=== PATIENT | male | born 1965 | race Caucasian/White ===

== ENCOUNTER 2020-04-23 11:59 | Inpatient (IN) | payer MEDICAID, SELFPAY ==
--- NOTE | 2020-04-23 12:07 | XR_ITS ---
EXAMINATION: XR CHEST CLINICAL INFORMATION: Chest pain COMPARISON: None TECHNIQUE: Frontal view of the chest was obtained. FINDINGS: No significant abnormality is noted involving the heart, lungs, mediastinum, bony thorax or soft tissues. XR/XR chest 1V IMPRESSION: Unremarkable examination.
--- NOTE | 2020-04-23 12:07 | ECG_ITS ---
Test Reason : SYNCOPE Blood Pressure : / mmHG Vent. Rate : 094 BPM Atrial Rate : 094 BPM P-R Int : 140 ms QRS Dur : 078 ms QT Int : 378 ms P-R-T Axes : 080 066 042 degrees QTc Int : 472 ms Normal sinus rhythm Right atrial enlargement Borderline ECG No previous ECGs available Referred By: Lyndsey Gauthier Electronically Signed By:DREW PEREZ MD
[2020-04-23] MEDS: 0.9 % Sodium Chloride 1,000 ML 999 ML IVCONT ×2 (12:15→14:24)
--- NOTE | 2020-04-23 12:16 | ED.NAVMDI ---
HPI - Nausea/Vomiting/Diarrhea General Chief complaint: Nausea/Vomiting/Diarrhea Stated complaint: hyperglycemia/syncope Time Seen by Provider: 04/23/20 12:47 Source: patient and EMS Mode of arrival: EMS Limitations: no limitations History of Present Illness HPI Narrative: 54 y/o male with history of insulin dependent diabetes, ETOH abuse and crack cocaine use who is presenting to the ER from home via EMS with nausea and vomiting for the last 3 days. He is a very poor historian. He reports some generalized body aches, abdominal soreness and chest pains when the throws up. He denies exposure to COVID-19. He had a syncopal event with EMS and his glucose was found to be ~550. He reports not taking his insulin for the last 3 days due to vomiting. Last ETOH was 1 week ago, denies drinking daily. Last crack cocaine use was 5 days ago. He lives with his mother who is not ill. MD elicited complaint: nausea and vomiting Pertinent past history: alcohol abuse Onset (ago): day(s) (3) Description of vomiting: food contents and coffee grounds Associated nausea: Yes Associated abdominal pain: Yes Location of pain: diffuse Pain consistency: intermittent Severity: mild Quality: cramping and aching Exacerbating factors: eating Relieving factors: vomiting Context: alcohol abuse Associated symptoms: chest pain, loss of appetite, malaise, nausea/vomiting, shortness of breath, syncope, weakness and decreased urine output Treatment prior to arrival: other (IV Zofran with EMS) Related Data Allergies Allergy/AdvReac Type Severity Reaction Status Date / Time Unable to Assess Allergy Verified 04/23/20 12:07 Review of Systems Review of Systems: Constitutional: No Fever, No Chills ENT/Mouth: No sore throat, No Rhinorrhea, No Swallowing Difficulty Eyes: No Eye Pain, No Swelling, No Redness Cardiovascular: + Chest Pain, + SOB, No Orthopnea, No Edema Respiratory: No Cough, No Sputum, No Wheezing, No dyspnea Gastrointestinal: + Nausea, + Vomiting, No Diarrhea, + abdominal Pain, No Hematochezia, No Melena Genitourinary: No Dysuria, No Urinary Frequency, No Hematuria Musculoskeletal: No joint pain, + Myalgias Skin: No Skin Lesions, No rash Neuro: + Weakness, No Numbness, No Dizziness, + Headache Psych: No Anxiety/Panic, No Depression Heme/Lymph: No Bruising, No Lymphadenopathy Endocrine: No Polyuria, No Polydipsia Gastrointestinal: Gastrointestinal: Reports nausea PMFSH Past Medical History Attestation statement: The following information was validated with the patient. Medical History (Updated 04/23/20 @ 14:28 by FABIANO Barroso) Diabetes Social History Social History Smoking Status: Never smoker Substance Use Type: Crack/Cocaine Advance Directives: No Advance Directives Information Provided: Yes Physical Exam Vital Signs: Vital Signs: Last Vital Signs Temp 98.3 F 04/23/20 14:00 Pulse 87 04/23/20 14:00 Resp 20 04/23/20 14:00 BP 138/82 04/23/20 14:00 Pulse Ox 98 04/23/20 14:00 Body Mass Index 23.6 Appearance: Lethargic but arouses to voice. Oriented X3. No acute distress. Eyes: Pupils equal, round and reactive to light. ENT: Pharynx normal. Neck: Normal inspection. Neck supple. CVS: Normal heart rate and rhythm. Pulses normal. Anterior chest wall tenderness Respiratory: No respiratory distress. Breath sounds normal. Abdomen: Soft with mild tenderness througout. +BS x4 Skin: Skin warm and dry. Normal skin color. Normal skin turgor. No rashes. Extremities: No lower extremity edema. Neuro: Oriented X 3. Generalized, symmetrical weakness. Non-focal Course Course Course Narrative: 54 y/o male with hx DM on insulin, drug/ETOH abuse presenting with N/V x3 days, not taking his insulin. Concern for DKA - labs, IVF, resp viral panel ordered. POC 530 here. Reevaluation(s) Reevaluation #1: Labs showing significant anion gap of 41 with bicarb 14 as well as lactic acid 4.0 and TISH with BUN/Cr 39/2.50. Unknown baseline renal function. Anion gap multofactorial. Acetone is moderate which is consistent with DKA - IV insulin push and infusion ordered. VBG still pending, inital speicmen was sent on ice so needed to be repeated. Lactic acid elevation is NOT due to sepsis. Lab called with critical result of troponin being too high to read - told that the specimen was going to be diluted and rerun. Heparin and ASA ordered for presumed NSTEMI based on labs initial calling. Troponin resulted 30 minutes later with result <100. Lab then called back and said troponin read is actually <3.5. Repeat EKG is unremarkable. Patient reporting mild chest discomfort, occurring only when he vomits. He continues to report nausea. STAT repeat troponin sent and lab asked to re-run the sample that is there. Heparin held for now. D/W Dr. Zuniga. Reevaluation #2: Repeat troponin <3.5. Heparin cancelled. Case d/w Dr. Lord who will admit to ICU for management of DKA. MDM - Nausea/Vomiting/Diarrhea Medical Records Attestation: I reviewed the patient's medical records. Lab Data Attestation: I reviewed the patient's lab results. Result diagrams: 04/23/20 12:31 04/23/20 12:32 Labs: Lab Results 04/23/20 04/23/20 04/23/20 Range/Units 12:10 12:31 12:31 WBC 9.0 (4.8-10.8) X10*3/uL RBC 5.35 (4.60-5.80) X10*6/uL Hgb 16.1 (14.0-18.0) g/dl Hct 47.9 (42-52) % MCV 89.5 (80-98) fL MCH 30.1 (27.0-33.0) pg MCHC 33.6 (31.0-36.0) g/dl RDW 12.4 (11.0-16.0) % Plt Count 232 (160-400) X10*3/uL MPV 11.1 (9.4-12.4) fL Immature Gran % (Auto) 0.4 (0.0-0.4) % Neut % (Auto) 85.2 H (45-73) % Lymph % (Auto) 12.2 L (20-40) % [place] % (Auto) 2.1 (2-11) % Eos % (Auto) 0.0 (0-4) % Baso % (Auto) 0.1 (0-2) % Lymph # (Auto) 1.1 L (1.2-4.9) X10*3/uL [place] # (Auto) 0.2 (0.1-1.2) X10*3/uL Eos # (Auto) 0.0 (0.0-0.4) X10*3/uL Baso # (Auto) 0.0 (0.0-0.2) X10*3/uL Abs Immat Gran (auto) 0.04 H (0.00-0.03) X10*3/uL Absolute Neuts (auto) 7.7 (2.0-8.3) X10*3/uL Absolute Nucleated RBC 0.000 (0.0-0.012) X10*3/uL Nucleated RBC % (auto) 0.0 (0.0-0.2) /100WBC Hold Blue Top VBG pH (7.32-7.43) VBG pCO2 mmHg VBG pO2 mmHg VBG HCO3 mmol/L VBG O2 Saturation % VBG Base Excess mmol/L Sodium (135-145) mmol/L Potassium (3.3-5.1) mmol/l Chloride (96-108) mmol/L Carbon Dioxide (22-29) mmol/L Anion Gap (12-20) BUN (9-16) mg/dL Creatinine (0.5-1.4) mg/dL Estim Creat Clear Calc Estimated GFR POC Glucose 520 H* (60-115) mg/dL Random Glucose (60-115) mg/dL Lactic Acid 4.0 H* (0.5-2.0) mmol/L Calcium (8.4-10.2) mg/dL Magnesium (1.6-2.6) mg/dL Total Bilirubin (0.0-1.0) mg/dL Direct Bilirubin (0.0-0.5) mg/dL AST (5-37) U/L ALT (0-40) U/L Alkaline Phosphatase (39-117) U/L Troponin I High Sens (<3.5-35.0) ng/L Total Protein (6.5-8.0) g/dL Albumin (3.5-5.0) g/dL Lipase (8-78) U/L Acetone, Qual (Negative) Coronavirus (PCR) (Negative) Influenza Type A (PCR) (Negative) Influenza Type B (PCR) (Negative) RSV RNA Qual (PCR) (Negative) 04/23/20 04/23/20 04/23/20 Range/Units 12:31 12:32 12:32 WBC (4.8-10.8) X10*3/uL RBC (4.60-5.80) X10*6/uL Hgb (14.0-18.0) g/dl Hct (42-52) % MCV (80-98) fL MCH (27.0-33.0) pg MCHC (31.0-36.0) g/dl RDW (11.0-16.0) % Plt Count (160-400) X10*3/uL MPV (9.4-12.4) fL Immature Gran % (Auto) (0.0-0.4) % Neut % (Auto) (45-73) % Lymph % (Auto) (20-40) % [place] % (Auto) (2-11) % Eos % (Auto) (0-4) % Baso % (Auto) (0-2) % Lymph # (Auto) (1.2-4.9) X10*3/uL [place] # (Auto) (0.1-1.2) X10*3/uL Eos # (Auto) (0.0-0.4) X10*3/uL Baso # (Auto) (0.0-0.2) X10*3/uL Abs Immat Gran (auto) (0.00-0.03) X10*3/uL Absolute Neuts (auto) (2.0-8.3) X10*3/uL Absolute Nucleated RBC (0.0-0.012) X10*3/uL Nucleated RBC % (auto) (0.0-0.2) /100WBC Hold Blue Top SEE NOTE VBG pH (7.32-7.43) VBG pCO2 mmHg VBG pO2 mmHg VBG HCO3 mmol/L VBG O2 Saturation % VBG Base Excess mmol/L Sodium 138 (135-145) mmol/L Potassium 5.1 (3.3-5.1) mmol/l Chloride 88 L (96-108) mmol/L Carbon Dioxide 14 L (22-29) mmol/L Anion Gap 41 H (12-20) BUN 39 H (9-16) mg/dL Creatinine 2.50 H (0.5-1.4) mg/dL Estim Creat Clear Calc 33.7 Estimated GFR 27 POC Glucose (60-115) mg/dL Random Glucose 586 H* (60-115) mg/dL Lactic Acid (0.5-2.0) mmol/L Calcium 9.0 (8.4-10.2) mg/dL Magnesium 2.4 (1.6-2.6) mg/dL Total Bilirubin 0.2 (0.0-1.0) mg/dL Direct Bilirubin 0.2 (0.0-0.5) mg/dL AST 18 (5-37) U/L ALT 18 (0-40) U/L Alkaline Phosphatase 81 (39-117) U/L Troponin I High Sens < 3.5 (<3.5-35.0) ng/L Total Protein 7.7 (6.5-8.0) g/dL Albumin 4.4 (3.5-5.0) g/dL Lipase 13 (8-78) U/L Acetone, Qual Moderate H (Negative) Coronavirus (PCR) (Negative) Influenza Type A (PCR) (Negative) Influenza Type B (PCR) (Negative) RSV RNA Qual (PCR) (Negative) 04/23/20 04/23/20 Range/Units 12:45 14:01 WBC (4.8-10.8) X10*3/uL RBC (4.60-5.80) X10*6/uL Hgb (14.0-18.0) g/dl Hct (42-52) % MCV (80-98) fL MCH (27.0-33.0) pg MCHC (31.0-36.0) g/dl RDW (11.0-16.0) % Plt Count (160-400) X10*3/uL MPV (9.4-12.4) fL Immature Gran % (Auto) (0.0-0.4) % Neut % (Auto) (45-73) % Lymph % (Auto) (20-40) % [place] % (Auto) (2-11) % Eos % (Auto) (0-4) % Baso % (Auto) (0-2) % Lymph # (Auto) (1.2-4.9) X10*3/uL [place] # (Auto) (0.1-1.2) X10*3/uL Eos # (Auto) (0.0-0.4) X10*3/uL Baso # (Auto) (0.0-0.2) X10*3/uL Abs Immat Gran (auto) (0.00-0.03) X10*3/uL Absolute Neuts (auto) (2.0-8.3) X10*3/uL Absolute Nucleated RBC (0.0-0.012) X10*3/uL Nucleated RBC % (auto) (0.0-0.2) /100WBC Hold Blue Top VBG pH 7.13 L* (7.32-7.43) VBG pCO2 35 mmHg VBG pO2 72 mmHg VBG HCO3 12 mmol/L VBG O2 Saturation 85.0 % VBG Base Excess -15.7 mmol/L Sodium (135-145) mmol/L Potassium (3.3-5.1) mmol/l Chloride (96-108) mmol/L Carbon Dioxide (22-29) mmol/L Anion Gap (12-20) BUN (9-16) mg/dL Creatinine (0.5-1.4) mg/dL Estim Creat Clear Calc Estimated GFR POC Glucose (60-115) mg/dL Random Glucose (60-115) mg/dL Lactic Acid (0.5-2.0) mmol/L Calcium (8.4-10.2) mg/dL Magnesium (1.6-2.6) mg/dL Total Bilirubin (0.0-1.0) mg/dL Direct Bilirubin (0.0-0.5) mg/dL AST (5-37) U/L ALT (0-40) U/L Alkaline Phosphatase (39-117) U/L Troponin I High Sens (<3.5-35.0) ng/L Total Protein (6.5-8.0) g/dL Albumin (3.5-5.0) g/dL Lipase (8-78) U/L Acetone, Qual (Negative) Coronavirus (PCR) POSITIVE A (Negative) Influenza Type A (PCR) NEGATIVE (Negative) Influenza Type B (PCR) NEGATIVE (Negative) RSV RNA Qual (PCR) NEGATIVE (Negative) ECG Data Attestation: I personally reviewed and interpreted this ECG as follows: ECG interpretation date: 04/23/20 ECG interpretation time: 12:20 Interpretation: 1st EKG @ 12:11pm: normal sinus rhythm, HR 94 bpm, normal [place] interval, normal QTc, no ischemic changes, no ST elevations 2nd EKG @ 1:31pm: normal sinus rhythm, HR 92 bpm, normal [place] interval, normal QTc, no ischemic changes Critical Care Time Critical Care Time Critical Care Time: Yes Total Critical Care Time: 55 Attestation: I attest to critical care time spent with this patient, reviewing his labs and records, frequent bedside reassessments and management of his life-threatening disease of DKA. Discharge Plan Discharge Clinical Impression: TISH (acute kidney injury), COVID-19 DKA (diabetic ketoacidoses) Qualifiers: Diabetes mellitus type: type 2 Diabetes mellitus complication detail: without coma Qualified Code(s): E11.10 - Type 2 diabetes mellitus with ketoacidosis without coma Patient Disposition: Admitted As Inpatient
[2020-04-23 12:18] LABS: Glucose, Whole Blood 520 mg/dL (60-115)
[2020-04-23 12:31] VITALS: BP 114/82; BP 154/102; PULSE 92; RESP 18; TEMP 36.8; O2SAT 97; BMI 23.6
[2020-04-23 12:41] LABS: MANUAL DIFF FLAG NO
[2020-04-23 12:42] LABS: Basophils Percent Auto 0.1 % (0-2); Hematocrit 47.9 % (42-52); Hemoglobin 16.1 g/dl (14.0-18.0); Imm Gran Abs Auto 0.04 X10*3/uL (0.00-0.03); Imm Gran Pct Auto 0.4 % (0.0-0.4); Lymphocytes Absolute Auto 1.1 X10*3/uL (1.2-4.9); Lymphocytes Percent Auto 12.2 % (20-40); Mean Corpuscular HGB Conc 33.6 g/dl (31.0-36.0); Mean Corpuscular Hemoglobin 30.1 pg (27.0-33.0); Mean Corpuscular Volume 89.5 fL (80-98); Mean Platelet Volume 11.1 fL (9.4-12.4); Monocytes Absolute Auto 0.2 X10*3/uL (0.1-1.2); Monocytes Percent Auto 2.1 % (2-11); Neutrophils Absolute Auto 7.7 X10*3/uL (2.0-8.3); Neutrophils Percent Auto 85.2 % (45-73); Platelet Count 232 X10*3/uL (160-400); Red Blood Count 5.35 X10*6/uL (4.60-5.80); Red Cell Distribution Width 12.4 % (11.0-16.0)
[2020-04-23 13:14] LABS: Alanine Aminotransferase 18 U/L (0-40); Albumin Level 4.4 g/dL (3.5-5.0); Alkaline Phosphatase 81 U/L (39-117); Anion Gap 41 (12-20); Aspartate Amino Transferase 18 U/L (5-37); Bilirubin Direct 0.2 mg/dL (0.0-0.5); Bilirubin Total 0.2 mg/dL (0.0-1.0); Blood Urea Nitrogen 39 mg/dL (9-16); Carbon Dioxide 14 mmol/L (22-29); Chloride 88 mmol/L (96-108); Creatinine Clr Calc Pharmacy 33.7; Estimated Glomerular Filt Rate 27; Glucose Random 586 mg/dL (60-115); Lipase 13 U/L (8-78); Magnesium 2.4 mg/dL (1.6-2.6); Potassium 5.1 mmol/l (3.3-5.1); Sodium 138 mmol/L (135-145); Total Protein 7.7 g/dL (6.5-8.0)
[2020-04-23 13:24] LABS: Acetone, serum QL Moderate (Negative)
--- NOTE | 2020-04-23 13:27 | ECG_ITS ---
Test Reason : ELEVATED TROP Blood Pressure : / mmHG Vent. Rate : 092 BPM Atrial Rate : 092 BPM P-R Int : 138 ms QRS Dur : 080 ms QT Int : 382 ms P-R-T Axes : 078 062 051 degrees QTc Int : 472 ms Normal sinus rhythm Normal ECG When compared with ECG of 23-APR-2020 12:11, No significant change was found Referred By: Lyndsey Gauthier Electronically Signed By:DREW PEREZ MD
[2020-04-23 13:37] LABS: Troponin-I High Sensitivity < 3.5 ng/L (<3.5-35.0)
--- NOTE | 2020-04-23 13:39 | PC.NURSE ---
pt aware of need for heparin and iv insulin, transfer to [facility]. Zuniga is ok with stated weight for drips. patient reports feeling nauseated and dry heaving,.
[2020-04-23] MEDS: Insulin Regular, Human 100 UNIT/ML 3 ML VIAL IVPUSH (13:47)
[2020-04-23 13:48] LABS: Influenza A PCR NEGATIVE (Negative); Influenza B PCR NEGATIVE (Negative); Resp Syncy Virus RNA Qual PCR NEGATIVE (Negative)
[2020-04-23] MEDS: ondansetron HCL 4 MG/2 ML VIAL IVPUSH (13:49)
[2020-04-23 13:58] LABS: SARS COV2 PCR INHOUSE POSITIVE (Negative)
[2020-04-23 14:00] VITALS: BP 138/82; PULSE 87; RESP 20; TEMP 36.8; O2SAT 98
[2020-04-23 14:15] LABS: PCO2 VBG 35 mmHg; PO2 VBG 72 mmHg
[2020-04-23 14:16] LABS: Base Excess VBG -15.7 mmol/L; HCO3 VBG 12 mmol/L
[2020-04-23] MEDS: Insulin Regular/NS 100 UNIT/100 ML PLAST..BAG IVCONT (14:20)
[2020-04-23 14:22] LABS: pH VBG 7.13 (7.32-7.43)
[2020-04-23] MEDS: Aspirin 325 MG TABLET PO (14:23)
--- NOTE | 2020-04-23 14:25 | PC.NURSE ---
BG elevated. Insulin bolus and gtt started. Pt given zofran for continued nausea. ASA given for ? OK as there was some previous confusion with the result of his troponin level. Ordered Heparin on hold for now per Lyndsey MARIO until repeat troponin has resulted.
[2020-04-23 14:32] LABS: Cancel Lactic Acid Canceled
--- NOTE | 2020-04-23 14:38 | P.EN_ITS ---
Event Note Date of Service: 04/23/20 Event Note: Mr. Rojo is being admitted to the ICU this afternoon after presen ting to ED with DKA. He also tested COVID-19 positive. 54 y/o male with history of insulin dependent diabetes, ETOH abuse and crack cocaine use. The patient presented to the ER from home via EMS this afternoon bec of nausea and vomiting food and coffee grounds for the last 3 days. He had a syncopal event with EMS and his glucose was found to be ~550. He reports not taking his insulin for the last 3 days due to vomiting. Last ETOH was 1 week ago, denies drinking daily. Last crack cocaine use was 5 days ago. He lives with his mother who is not ill. Exam in the ED generally unremarkable, breathing easy w Spo2 high 90's on room air. Labs showed gluc 500s, anion gap of 41, bicarb 14, BUN/Cr 39/2.50 (unknown baseline), Hb 16. Acetone moderate. COVID PCR positive. The patient was given 2L NS and insulin. IMPRESSION: 1. DKA. Fluids, insulin, f/u chemistries. 2. COVID positive. GI sx only. No indication for steroids. I'll give him Pepsid, Vit D, Vit C, and Zinc. 3. No evidence of sepsis. 4. TISH, 2? dehydration. Continue vol resuscitation. 5. Vomiting, ? coffee grounds. Hb is high (albeit likely hemoconcentrated), unlikely that he's having a major UGI bleed. More likely stress gastritis. PPI for now. EGD only if worsens. 6. Hyperlactatemia. Irrelevant in most patients w DKA. Time: 40 min. ([id number])
[2020-04-23 14:49] LABS: Troponin-I High Sensitivity < 3.5 ng/L (<3.5-35.0)
[2020-04-23] MEDS: Lactated Ringers 500 ML IVCONT ×2 (15:25→17:46)
[2020-04-23 15:47] LABS: Glucose, Whole Blood 412 mg/dL (60-115)
[2020-04-23 16:23] VITALS: BP 142/88; PULSE 89; RESP 18; TEMP 36.8; O2SAT 100
--- NOTE | 2020-04-23 16:30 | PC.NURSE ---
Pt reporting that he is feeling better. He is more alert and less drowsy at this time. Repeat labs obtained. He remains on insulin drip with POC trending down.
[2020-04-23 17:01] LABS: Lactic Acid 2.5 mmol/L (0.5-2.0)
[2020-04-23 17:16] LABS: Glucose, Whole Blood 303 mg/dL (60-115)
[2020-04-23 17:18] LABS: Anion Gap 34 (12-20); Blood Urea Nitrogen 36 mg/dL (9-16); Calcium 8.2 mg/dL (8.4-10.2); Chloride 100 mmol/L (96-108); Creatinine Clr Calc Pharmacy 40.9; Estimated Glomerular Filt Rate 34; Glucose Random 397 mg/dL (60-115); Potassium 4.4 mmol/l (3.3-5.1); Sodium 140 mmol/L (135-145)
[2020-04-23 17:19] VITALS: BMI 24.3
--- NOTE | 2020-04-23 17:25 | PC.NURSE ---
critical glucose of 397 reported to provider yLndsey.
[2020-04-23] MEDS: Famotidine/PF 20 MG/2 ML VIAL IVPUSH (17:46)
--- NOTE | 2020-04-23 17:48 | PC.NURSE ---
Report given to PSYCHIATRIC TECHNICIAN ASSISTANT. Plan to transport to ICU on monitor.
[2020-04-23] MEDS: Lactated Ringers 1,000 ML 250 ML IVCONT (18:19)
[2020-04-23 18:36] LABS: Reflex Lactate? Lactic Acid Added
[2020-04-23 18:45] VITALS: BP 122/82; PULSE 79; RESP 20; TEMP 36.8; O2SAT 99
[2020-04-23 18:47] LABS: Glucose, Whole Blood 261 mg/dL (60-115)
[2020-04-23 19:00] VITALS: BMI 22.9
[2020-04-23 19:07] LABS: Glucose Urine UA 500 MG/DL (NEG); Leukocyte Esterase Urine NEG (NEG); Nitrite Urine NEG (NEG); PH 5.5 (5.0-8.0); Specific Gravity - Urine >= 1.030 (1.005-1.025); Urine Blood NEG (NEG); Urine Ketones >=80 MG/DL (NEG); Urine Protein NEG (NEG-TRACE)
[2020-04-23 19:11] LABS: Appearance Urine CLEAR; Color Urine STRAW
[2020-04-23 19:12] LABS: Glucose, Whole Blood 237 mg/dL (60-115)
[2020-04-23 19:31] LABS: Cancel Lactic Acid Canceled
[2020-04-23 19:34] LABS: Amphetamine Screen Urine Not Detected (Not Detect); Barbiturates, Urine Not Detected (Not Detect); Benzodiazepines Screen Urine Not Detected (Not Detect); Cannabinoid Screen Urine Not Detected (Not Detect); Cocaine Screen Urine Not Detected (Not Detect); Opiate Screen Urine Not Detected (Not Detect); Phencyclidine Screen Urine Not Detected (Not Detect)
[2020-04-23 19:46] LABS: Carbon Dioxide 10 mmol/L (22-29)
[2020-04-23 19:47] VITALS: BP 124/79; PULSE 74; RESP 14; TEMP 36.9; O2SAT 100
--- NOTE | 2020-04-23 19:55 | P.HPCC_ITS ---
History of Present Illness Date of Service: 04/23/20 Chief Complaint: DKA/COVID 19 infection HPI: 54-year-old patient with underlying history of diabetes, alcohol abuse, crack cocaine use presented to the emergency room with complaints of a generalized malaise, body aches nausea, vomiting and diarrhea for the past 3 days. Reportedly the patient had a syncopal event while with EMS and his glucose was noted to be around 550. He has not taking his insulin at home given his current symptoms. According to him has not used alcohol in the past week but had use cocaine as recent as 4-5 days ago. He does not recall being contact with anybody who has COVID however he was tested in the emergency room he seems to be positive. Reportedly he also had some coffee-ground emesis. In the ER his vital signs were stable his laboratories did show acute kidney injury with a BUN of 39 and creatinine of 2.59 and a glucose of 586. He was certainly acidotic , his ABG show a pH of 7.1 with lactic acid 4.0 liver and pancreatic functions were normal. Patient was started on IV fluids and insulin drip and transferred to the ICU for further management. ROS: Denies headache, no visual changes, lightheadedness or dizziness, no history of seizures or strokes, no history of eye or ear problems, no sore throat, cough or sputum production, denies shortness of breath, denies chest pain, palpitations, no coronary disease, pulmonary disease, no hemoptysis, hematochezia, prior liver or kidney problems, no dysuria, hematuria, no leg swelling, no history of DVT or PE. All other review of systems negative. Past Medical History: Denies Past Surgical History: Denies Family history: Noncontributory Social History: [place] home, denies tobacco, admits to crack cocaine use and alcohol abuse as above CODE STATUS: Full code Allergies: No known drug allergies Home Medications: Please see med rec PHYSICAL EXAM: VS: 124/79, heart rate 69, respirations 18, O2 sat 99% on room air. ?General: Alert oriented x3 no acute distress. Speaking full sentences. Speech is well articulated, thought process is coherent. Following all commands. ?Skin: Intact, no lesions, edema, erythema, clubbing or cyanosis. No ulcers. ?HEENT: Head is normocephalic, atraumatic, pupils equal round reactive to light accommodation bilaterally. Extraocular movements appear intact. Buccal mucosa is dry Neck is supple without lymphadenopathy. ?Cardiac: Clear S1-S2, no murmurs rubs or gallops. ?Pulmonary: Clear to auscultation, no wheezes, rales or rhonchi. ?Abdomen: Protuberant, positive bowel sounds in all 4 quadrants. Soft, nontender, no rebound or guarding. ?Musculoskeletal: Moving all 4 extremities upon request a major joints, there is no crepitus or tenderness. The strength is 5/5 bilaterally and throughout all 4 extremities. Gait not assessed at this point. ?Neurologic: As above, cranial nerves 2-12 are grossly intact. No focal deficits noted. ?Motor strength as above. ?Vascular: 2+ pulses upper and lower extremities distally. SIGNIFICANT LABORATORY DATA: White blood cells 9.0, hemoglobin 16.1, hematocrit 47.9, platelet 232. Sodium 140, potassium 4 point is 4, chloride 100, carbon dioxide 10, anion gap 34, BUN 36, creatinine 2.5 baseline unknown . Repeat lactic acid 2.5 Blood gas as above. Acetone presents is moderate and he is U tox is negative. REVIEW OF IMAGES: Chest x-ray shows no evidence of pulmonary disease. EKG REVIEW: Normal sinus rhythm 92 beats per minute. There is no ST elevations, no depressions. QTC 472. No comparison available. ASSESSMENT AND PLAN: 1. DKA multifactorial (lack of medications and COVID infection) 2. COVID infection without respiratory symptoms 3. Acute kidney injury likely due to volume depletion 4. Metabolic and lactic acidosis secondary to DKA 5. History of alcohol and crack cocaine abuse currently without evidence of withdrawal 6. Nausea, vomiting secondary to COVID with questionable coffee-ground emesis. Monitor H&H. Admit to ICU, I's and O's, IV fluids, insulin drip, there is no indications for steroids, he did receive Pepcid, vitamin-D, vitamin-C and zinc. Will recheck chemistries and monitor electrolytes, renal function and replete potassium accordingly. Once the gap is closed, will discontinue the drip and place him on long-acting insulin. GI PROPHYLAXIS: IV Pepsid DVT PROPHYLAXIS: Heparin Critical care time used for critical evaluation of this patient, diagnosis, treatment and coordination of care, review her records and documentation TOTAL CRITICAL CARE TIME 90 MIN . Patient's care was discussed in detail with Dr. Lord. He is aware of all the above as well as the plan of care for this patient. 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 If so, by whom?: No Do you feel safe in your current relationship?: Yes Is there a partner from a previous relationship who is making you feel unsafe now?: No Are you made to feel afraid or neglected: No Advance Directives: No Advance Directives Information Provided: Yes Advance Directives on File: No Do you have thoughts of harming others: None Do you have a plan to hurt others: No Plan Recently lost weight without trying: Yes Meds Allergies Allergy/AdvReac Type Severity Reaction Status Date / Time No Known Allergies Allergy Verified 04/23/20 19:55 Physical Exam Vital Signs: Vital Signs: Last Vital Signs Temp 98.4 F 04/23/20 19:47 Pulse 74 04/23/20 19:47 Resp 14 04/23/20 19:47 BP 124/79 04/23/20 19:47 Pulse Ox 100 04/23/20 19:47 Body Mass Index 22.9 Results Labs CBC and Chem 7: 04/23/20 12:31 04/23/20 16:30 Labs: Laboratory Results - last 24 hr 04/23/20 04/23/20 04/23/20 12:10 12:31 12:31 MCV 89.5 MCH 30.1 MCHC 33.6 RDW 12.4 Plt Count 232 MPV 11.1 Immature Gran % (Auto) 0.4 Neut % (Auto) 85.2 H Lymph % (Auto) 12.2 L Shannon % (Auto) 2.1 Eos % (Auto) 0.0 Baso % (Auto) 0.1 Lymph # (Auto) 1.1 L Shannon # (Auto) 0.2 Eos # (Auto) 0.0 Baso # (Auto) 0.0 Abs Immat Gran (auto) 0.04 H Absolute Neuts (auto) 7.7 Absolute Nucleated RBC 0.000 Nucleated RBC % (auto) 0.0 Hold Blue Top VBG pH VBG pCO2 VBG pO2 VBG HCO3 VBG O2 Saturation VBG Base Excess Anion Gap Estim Creat Clear Calc Estimated GFR POC Glucose 520 H* Random Glucose Lactic Acid 4.0 H* Calcium Magnesium Total Bilirubin Direct Bilirubin AST ALT Alkaline Phosphatase Troponin I High Sens Total Protein Albumin Lipase Urine Color Urine Appearance Urine pH Ur Specific [place] Urine Protein Urine Glucose (UA) Urine Ketones Urine Blood Urine Nitrite Ur Leukocyte Esterase Urine Opiates Screen Ur Barbiturates Screen Ur Phencyclidine Scrn Ur Amphetamines Screen U Benzodiazepines Scrn Urine Cocaine Screen U Marijuana (THC) Screen Acetone, Qual Coronavirus (PCR) Influenza Type A (PCR) Influenza Type B (PCR) RSV RNA Qual (PCR) 04/23/20 04/23/20 04/23/20 12:31 12:32 12:32 MCV MCH MCHC RDW Plt Count MPV Immature Gran % (Auto) Neut % (Auto) Lymph % (Auto) Shannon % (Auto) Eos % (Auto) Baso % (Auto) Lymph # (Auto) Shannon # (Auto) Eos # (Auto) Baso # (Auto) Abs Immat Gran (auto) Absolute Neuts (auto) Absolute Nucleated RBC Nucleated RBC % (auto) Hold Blue Top SEE NOTE VBG pH VBG pCO2 VBG pO2 VBG HCO3 VBG O2 Saturation VBG Base Excess Anion Gap 41 H Estim Creat Clear Calc 33.7 Estimated GFR 27 POC Glucose Random Glucose 586 H* Lactic Acid Calcium 9.0 Magnesium 2.4 Total Bilirubin 0.2 Direct Bilirubin 0.2 AST 18 ALT 18 Alkaline Phosphatase 81 Troponin I High Sens < 3.5 Total Protein 7.7 Albumin 4.4 Lipase 13 Urine Color Urine Appearance Urine pH Ur Specific [place] Urine Protein Urine Glucose (UA) Urine Ketones Urine Blood Urine Nitrite Ur Leukocyte Esterase Urine Opiates Screen Ur Barbiturates Screen Ur Phencyclidine Scrn Ur Amphetamines Screen U Benzodiazepines Scrn Urine Cocaine Screen U Marijuana (THC) Screen Acetone, Qual Moderate H Coronavirus (PCR) Influenza Type A (PCR) Influenza Type B (PCR) RSV RNA Qual (PCR) 04/23/20 04/23/20 04/23/20 12:45 13:55 14:01 MCV MCH MCHC RDW Plt Count MPV Immature Gran % (Auto) Neut % (Auto) Lymph % (Auto) Shannon % (Auto) Eos % (Auto) Baso % (Auto) Lymph # (Auto) Shannon # (Auto) Eos # (Auto) Baso # (Auto) Abs Immat Gran (auto) Absolute Neuts (auto) Absolute Nucleated RBC Nucleated RBC % (auto) Hold Blue Top VBG pH 7.13 L* VBG pCO2 35 VBG pO2 72 VBG HCO3 12 VBG O2 Saturation 85.0 VBG Base Excess -15.7 Anion Gap Estim Creat Clear Calc Estimated GFR POC Glucose Random Glucose Lactic Acid Calcium Magnesium Total Bilirubin Direct Bilirubin AST ALT Alkaline Phosphatase Troponin I High Sens < 3.5 Total Protein Albumin Lipase Urine Color Urine Appearance Urine pH Ur Specific [place] Urine Protein Urine Glucose (UA) Urine Ketones Urine Blood Urine Nitrite Ur Leukocyte Esterase Urine Opiates Screen Ur Barbiturates Screen Ur Phencyclidine Scrn Ur Amphetamines Screen U Benzodiazepines Scrn Urine Cocaine Screen U Marijuana (THC) Screen Acetone, Qual Coronavirus (PCR) POSITIVE A Influenza Type A (PCR) NEGATIVE Influenza Type B (PCR) NEGATIVE RSV RNA Qual (PCR) NEGATIVE 04/23/20 04/23/20 04/23/20 15:40 16:30 16:30 MCV MCH MCHC RDW Plt Count MPV Immature Gran % (Auto) Neut % (Auto) Lymph % (Auto) Shannon % (Auto) Eos % (Auto) Baso % (Auto) Lymph # (Auto) Shannon # (Auto) Eos # (Auto) Baso # (Auto) Abs Immat Gran (auto) Absolute Neuts (auto) Absolute Nucleated RBC Nucleated RBC % (auto) Hold Blue Top VBG pH VBG pCO2 VBG pO2 VBG HCO3 VBG O2 Saturation VBG Base Excess Anion Gap 34 H Estim Creat Clear Calc 40.9 Estimated GFR 34 POC Glucose 412 H* Random Glucose 397 H* Lactic Acid 2.5 H* Calcium 8.2 L D Magnesium Total Bilirubin Direct Bilirubin AST ALT Alkaline Phosphatase Troponin I High Sens Total Protein Albumin Lipase Urine Color Urine Appearance Urine pH Ur Specific [place] Urine Protein Urine Glucose (UA) Urine Ketones Urine Blood Urine Nitrite Ur Leukocyte Esterase Urine Opiates Screen Ur Barbiturates Screen Ur Phencyclidine Scrn Ur Amphetamines Screen U Benzodiazepines Scrn Urine Cocaine Screen U Marijuana (THC) Screen Acetone, Qual Coronavirus (PCR) Influenza Type A (PCR) Influenza Type B (PCR) RSV RNA Qual (PCR) 04/23/20 04/23/20 04/23/20 17:13 18:13 18:45 MCV MCH MCHC RDW Plt Count MPV Immature Gran % (Auto) Neut % (Auto) Lymph % (Auto) Shannon % (Auto) Eos % (Auto) Baso % (Auto) Lymph # (Auto) Shannon # (Auto) Eos # (Auto) Baso # (Auto) Abs Immat Gran (auto) Absolute Neuts (auto) Absolute Nucleated RBC Nucleated RBC % (auto) Hold Blue Top VBG pH VBG pCO2 VBG pO2 VBG HCO3 VBG O2 Saturation VBG Base Excess Anion Gap Estim Creat Clear Calc Estimated GFR POC Glucose 303 H 261 H Random Glucose Lactic Acid Calcium Magnesium Total Bilirubin Direct Bilirubin AST ALT Alkaline Phosphatase Troponin I High Sens Total Protein Albumin Lipase Urine Color Urine Appearance Urine pH Ur Specific [place] Urine Protein Urine Glucose (UA) Urine Ketones Urine Blood Urine Nitrite Ur Leukocyte Esterase Urine Opiates Screen Not Detected Ur Barbiturates Screen Not Detected Ur Phencyclidine Scrn Not Detected Ur Amphetamines Screen Not Detected U Benzodiazepines Scrn Not Detected Urine Cocaine Screen Not Detected U Marijuana (THC) Screen Not Detected Acetone, Qual Coronavirus (PCR) Influenza Type A (PCR) Influenza Type B (PCR) RSV RNA Qual (PCR) 04/23/20 04/23/20 18:45 19:07 MCV MCH MCHC RDW Plt Count MPV Immature Gran % (Auto) Neut % (Auto) Lymph % (Auto) Shannon % (Auto) Eos % (Auto) Baso % (Auto) Lymph # (Auto) Shannon # (Auto) Eos # (Auto) Baso # (Auto) Abs Immat Gran (auto) Absolute Neuts (auto) Absolute Nucleated RBC Nucleated RBC % (auto) Hold Blue Top VBG pH VBG pCO2 VBG pO2 VBG HCO3 VBG O2 Saturation VBG Base Excess Anion Gap Estim Creat Clear Calc Estimated GFR POC Glucose 237 H Random Glucose Lactic Acid Calcium Magnesium Total Bilirubin Direct Bilirubin AST ALT Alkaline Phosphatase Troponin I High Sens Total Protein Albumin Lipase Urine Color STRAW Urine Appearance CLEAR Urine pH 5.5 Ur Specific [place] >= 1.030 H Urine Protein NEG Urine Glucose (UA) 500 H Urine Ketones >=80 Urine Blood NEG Urine Nitrite NEG Ur Leukocyte Esterase NEG Urine Opiates Screen Ur Barbiturates Screen Ur Phencyclidine Scrn Ur Amphetamines Screen U Benzodiazepines Scrn Urine Cocaine Screen U Marijuana (THC) Screen Acetone, Qual Coronavirus (PCR) Influenza Type A (PCR) Influenza Type B (PCR) RSV RNA Qual (PCR) Imaging Radiologist's Impressions: Impressions Chest X-Ray 04/23/20 12:07 IMPRESSION: Unremarkable examination.
[2020-04-23] MEDS: Dextrose 5 % and Lactated Ring 1,000 ML 100 ML IVCONT (20:05)
[2020-04-23 20:18] LABS: Glucose, Whole Blood 265 mg/dL (60-115)
[2020-04-23 21:07] LABS: Glucose, Whole Blood 273 mg/dL (60-115)
[2020-04-23 21:09] LABS: Cancel Lactic Acid Canceled
[2020-04-23 21:52] LABS: Anion Gap 21 (12-20); Blood Urea Nitrogen 32 mg/dL (9-16); Calcium 7.8 mg/dL (8.4-10.2); Carbon Dioxide 17 mmol/L (22-29); Chloride 102 mmol/L (96-108); Creatinine Clr Calc Pharmacy 48.7; Estimated Glomerular Filt Rate 41; Glucose Random 289 mg/dL (60-115); Potassium 4.4 mmol/l (3.3-5.1); Sodium 136 mmol/L (135-145)
[2020-04-23 21:58] LABS: Glucose, Whole Blood 262 mg/dL (60-115)
[2020-04-23 23:46] LABS: Glucose, Whole Blood 241 mg/dL (60-115)
[2020-04-23 23:57] VITALS: BP 116/69; PULSE 89; RESP 16; TEMP 36.9; O2SAT 97
[2020-04-24] VITALS (10 sets, daily range): BP systolic 114–133; BP diastolic 68–88; PULSE 69–86; RESP 14–24; TEMP 36.7–37.7; O2SAT 95–99; BMI 25.0
--- NOTE | 2020-04-24 | XR_ITS ---
EXAMINATION: XR CHEST CLINICAL INFORMATION: History of cough. Evaluate for Covid pneumonia COMPARISON: 04/23/2020 TECHNIQUE: Frontal view of the chest was obtained. FINDINGS: Lungs are well expanded. There is a subtle streaky, hazy opacity at the left lung base. Otherwise, lungs are unremarkable. No pleural effusion. Cardiomediastinal silhouette has normal size and contour. The visualized bones, and upper abdomen, are unremarkable. XR/XR chest 1V IMPRESSION: There is subtle hazy, streaky opacity from atelectasis or pneumonia at the left lung base.
[2020-04-24 00:39] LABS: Glucose, Whole Blood 229 mg/dL (60-115)
[2020-04-24 01:40] LABS: Anion Gap 17 (12-20); Blood Urea Nitrogen 30 mg/dL (9-16); Calcium 7.9 mg/dL (8.4-10.2); Carbon Dioxide 23 mmol/L (22-29); Chloride 101 mmol/L (96-108); Creatinine Clr Calc Pharmacy 51.4; Estimated Glomerular Filt Rate 44; Glucose Random 192 mg/dL (60-115); Potassium 3.7 mmol/l (3.3-5.1); Sodium 137 mmol/L (135-145)
[2020-04-24] MEDS: Lactated Ringers 1,000 ML 100 ML IVCONT (03:45)
[2020-04-24] MEDS: Insulin Glargine,Hum.rec.anlog 100 UNIT/ML 10 ML VIAL 10 UNIT SUBCUT ×2 (04:10→20:41)
[2020-04-24] MEDS: Famotidine/PF 20 MG/2 ML VIAL IVPUSH (05:12)
[2020-04-24 05:22] LABS: MANUAL DIFF FLAG NO
--- NOTE | 2020-04-24 05:22 | PC.NURSE ---
A&Ox3. SR 70's-80's. Respirations easy. Satting 100% on RA. Admitted via ED approx 1840. Insulin gtt titrated per FABIANO Arce. Off @ 0300. Lantus 10 units SQ given @ 0400. Tolerating PO intake with no complaints of nausea/vomiting. Making adequate urine in urinal. No BM. Slept most of shift with no complaints.
[2020-04-24 05:30] LABS: Basophils Percent Auto 0.1 % (0-2); Hemoglobin 12.3 g/dl (14.0-18.0); Imm Gran Abs Auto 0.04 X10*3/uL (0.00-0.03); Imm Gran Pct Auto 0.5 % (0.0-0.4); Lymphocytes Absolute Auto 1.9 X10*3/uL (1.2-4.9); Lymphocytes Percent Auto 24.5 % (20-40); Mean Corpuscular HGB Conc 34.2 g/dl (31.0-36.0); Mean Corpuscular Hemoglobin 29.9 pg (27.0-33.0); Mean Corpuscular Volume 87.4 fL (80-98); Mean Platelet Volume 10.9 fL (9.4-12.4); Monocytes Absolute Auto 0.7 X10*3/uL (0.1-1.2); Monocytes Percent Auto 8.8 % (2-11); Neutrophils Absolute Auto 5.2 X10*3/uL (2.0-8.3); Neutrophils Percent Auto 66.1 % (45-73); Platelet Count 200 X10*3/uL (160-400); Red Blood Count 4.12 X10*6/uL (4.60-5.80); Red Cell Distribution Width 12.5 % (11.0-16.0); White Blood Count 7.9 X10*3/uL (4.8-10.8)
[2020-04-24 05:45] LABS: Glucose, Whole Blood 105 mg/dL (60-115)
[2020-04-24 06:01] LABS: Anion Gap 18 (12-20); Blood Urea Nitrogen 26 mg/dL (9-16); Calcium 7.8 mg/dL (8.4-10.2); Carbon Dioxide 21 mmol/L (22-29); Chloride 102 mmol/L (96-108); Creatinine Clr Calc Pharmacy 58.9; Estimated Glomerular Filt Rate 52; Glucose Random 111 mg/dL (60-115); Potassium 4.1 mmol/l (3.3-5.1); Sodium 137 mmol/L (135-145)
[2020-04-24 08:13] LABS: Glucose, Whole Blood 154 mg/dL (60-115)
[2020-04-24] MEDS: Insulin Lispro 100 UNIT/ML 3 ML VIAL SUBCUT ×3 (08:27→20:40)
[2020-04-24] MEDS: Acetaminophen 325 MG TABLET 650 MG PO ×2 (08:28→16:09)
[2020-04-24] MEDS: Cholecalciferol (Vitamin D3) 25 MCG TABLET 50 MCG PO (08:29)
[2020-04-24] MEDS: Zinc Sulfate 220 MG CAPSULE PO (08:29)
[2020-04-24] MEDS: Ascorbic Acid 500 MG TABLET PO (08:29)
--- NOTE | 2020-04-24 08:31 | MHC.CM.PN ---
pt lives c his brother in apt. he reports being independent in his care. he denies the need for vna svcs at co. pt would benefit froma a care team consult for substance abuse. pt will have his brother provide transportation at co. cm to cont. to follow.
--- NOTE | 2020-04-24 11:08 | P.PNCC_ITS ---
Subjective Subjective Date of Service: 04/24/20 Interval History: Mr. Rojo was admitted to the ICU last night with DKA. He also tested COVID-19 positive. The patient is a 54 y/o male with history of insulin dependent diabetes, ETOH abuse and crack cocaine use. The patient presented to the ER from home via EMS yesterday afternoon bec of nausea and vomiting food and coffee grounds for the prior 3 days. He had a syncopal event with EMS and his glucose was found to be ~550. He reports not taking his insulin for the prior 3 days due to vomiting. Last ETOH was 1 week prior, denied drinking daily. Last crack cocaine use was about 6 days ago. He lives with his mother who is not ill. Exam in the ED was generally unremarkable, he was breathing easy w Spo2 high 90's on room air. Labs were notable for glucose 500s, anion gap of 41, bicarb 14, BUN/Cr 39/2.50 (unknown baseline), Hb 16. Acetone moderate. COVID PCR positive. The patient was given 2L NS and insulin and eventually transferred to ICU. He denied any respiratory or URI symptoms. He did well overnight, came off the insulin drip at 3am. Breathing easy overnight with sats up to 100% on room air. This morning he did complain shortness of breath. At the time, his sat was 98% on room air. A nasal cannula was applied and he immediately felt better.? whether this was due to anxiety. See vital signs below. On my exam this morning he is breathing easy with sat of 96% on room air. Heart rate 69, blood pressure 115/78, respiratory rate about 20. He?s been afebrile throughout. No JVD, normal exp phase, no edema. LABORATORY DATA: As below. Notably, hemoglobin is down to 12 after volume resuscitation, from 16 on admission. Bicarb is 23, BUN and creatinine are down to 26/1.4, glucose is down to 111. Magnesium and phos are pending. IMPRESSION: 1. DKA. Written for Lantus and SS insulin. I stopped his IV fluids. 2. COVID positive. GI sx only. No resp sx, until possibly this morning. I?ve ordered a portable CXR. No indication for steroids at this time. I wrote him for Pepsid, Vit D, Vit C, Vit B, and Zinc. 3. No evidence of sepsis. 4. TISH, 2? dehydration. He?s been tolerating po?s since last nite and asking for a diet this morning. Should be able to auto hydrate from here. 5. Vomiting ? coffee grounds. Can?t r/o that part of his Hb drop is 2? UGI bleed; if so, most likely stress gastritis. Wrote him for stool guiacs x 3, and we?ll recheck an H&H (along with chemistries) at 4pm. Have him on high dose Pepcid. EGD only if worsens. 6. DVT prophylaxis. Low risk, none nec. Early ambulation. Stable for transfer to regular room. I?ll sign out to hospitalist. Time [id number] Physical Exam Vital Signs: Vital Signs: Last Vital Signs Temp 98.1 F 04/24/20 09:00 Pulse 77 04/24/20 10:00 Resp 14 04/24/20 10:00 BP 115/78 04/24/20 10:00 Pulse Ox 95 04/24/20 10:00 Body Mass Index 25.0 Objective Data Labs CBC & Chem 7: 04/24/20 04:54 04/24/20 04:54 Labs: Laboratory Results - last 24 hr 04/23/20 04/23/20 04/23/20 12:10 12:31 12:31 WBC 9.0 RBC 5.35 Hgb 16.1 Hct 47.9 MCV 89.5 MCH 30.1 MCHC 33.6 RDW 12.4 Plt Count 232 MPV 11.1 Immature Gran % (Auto) 0.4 Neut % (Auto) 85.2 H Lymph % (Auto) 12.2 L [place] % (Auto) 2.1 Eos % (Auto) 0.0 Baso % (Auto) 0.1 Lymph # (Auto) 1.1 L [place] # (Auto) 0.2 Eos # (Auto) 0.0 Baso # (Auto) 0.0 Abs Immat Gran (auto) 0.04 H Absolute Neuts (auto) 7.7 Absolute Nucleated RBC 0.000 Nucleated RBC % (auto) 0.0 Hold Blue Top VBG pH VBG pCO2 VBG pO2 VBG HCO3 VBG O2 Saturation VBG Base Excess Sodium Potassium Chloride Carbon Dioxide Anion Gap BUN Creatinine Estim Creat Clear Calc Estimated GFR POC Glucose 520 H* Random Glucose Lactic Acid 4.0 H* Calcium Magnesium Total Bilirubin Direct Bilirubin AST ALT Alkaline Phosphatase Troponin I High Sens Total Protein Albumin Lipase Urine Color Urine Appearance Urine pH Ur Specific [place] Urine Protein Urine Glucose (UA) Urine Ketones Urine Blood Urine Nitrite Ur Leukocyte Esterase Urine Opiates Screen Ur Barbiturates Screen Ur Phencyclidine Scrn Ur Amphetamines Screen U Benzodiazepines Scrn Urine Cocaine Screen U Marijuana (THC) Screen Acetone, Qual Coronavirus (PCR) Influenza Type A (PCR) Influenza Type B (PCR) RSV RNA Qual (PCR) 04/23/20 04/23/20 04/23/20 12:31 12:32 12:32 WBC RBC Hgb Hct MCV MCH MCHC RDW Plt Count MPV Immature Gran % (Auto) Neut % (Auto) Lymph % (Auto) [place] % (Auto) Eos % (Auto) Baso % (Auto) Lymph # (Auto) [place] # (Auto) Eos # (Auto) Baso # (Auto) Abs Immat Gran (auto) Absolute Neuts (auto) Absolute Nucleated RBC Nucleated RBC % (auto) Hold Blue Top SEE NOTE VBG pH VBG pCO2 VBG pO2 VBG HCO3 VBG O2 Saturation VBG Base Excess Sodium 138 Potassium 5.1 Chloride 88 L Carbon Dioxide 14 L Anion Gap 41 H BUN 39 H Creatinine 2.50 H Estim Creat Clear Calc 33.7 Estimated GFR 27 POC Glucose Random Glucose 586 H* Lactic Acid Calcium 9.0 Magnesium 2.4 Total Bilirubin 0.2 Direct Bilirubin 0.2 AST 18 ALT 18 Alkaline Phosphatase 81 Troponin I High Sens < 3.5 Total Protein 7.7 Albumin 4.4 Lipase 13 Urine Color Urine Appearance Urine pH Ur Specific [place] Urine Protein Urine Glucose (UA) Urine Ketones Urine Blood Urine Nitrite Ur Leukocyte Esterase Urine Opiates Screen Ur Barbiturates Screen Ur Phencyclidine Scrn Ur Amphetamines Screen U Benzodiazepines Scrn Urine Cocaine Screen U Marijuana (THC) Screen Acetone, Qual Moderate H Coronavirus (PCR) Influenza Type A (PCR) Influenza Type B (PCR) RSV RNA Qual (PCR) 04/23/20 04/23/20 04/23/20 12:45 13:55 14:01 WBC RBC Hgb Hct MCV MCH MCHC RDW Plt Count MPV Immature Gran % (Auto) Neut % (Auto) Lymph % (Auto) [place] % (Auto) Eos % (Auto) Baso % (Auto) Lymph # (Auto) [place] # (Auto) Eos # (Auto) Baso # (Auto) Abs Immat Gran (auto) Absolute Neuts (auto) Absolute Nucleated RBC Nucleated RBC % (auto) Hold Blue Top VBG pH 7.13 L* VBG pCO2 35 VBG pO2 72 VBG HCO3 12 VBG O2 Saturation 85.0 VBG Base Excess -15.7 Sodium Potassium Chloride Carbon Dioxide Anion Gap BUN Creatinine Estim Creat Clear Calc Estimated GFR POC Glucose Random Glucose Lactic Acid Calcium Magnesium Total Bilirubin Direct Bilirubin AST ALT Alkaline Phosphatase Troponin I High Sens < 3.5 Total Protein Albumin Lipase Urine Color Urine Appearance Urine pH Ur Specific [place] Urine Protein Urine Glucose (UA) Urine Ketones Urine Blood Urine Nitrite Ur Leukocyte Esterase Urine Opiates Screen Ur Barbiturates Screen Ur Phencyclidine Scrn Ur Amphetamines Screen U Benzodiazepines Scrn Urine Cocaine Screen U Marijuana (THC) Screen Acetone, Qual Coronavirus (PCR) POSITIVE A Influenza Type A (PCR) NEGATIVE Influenza Type B (PCR) NEGATIVE RSV RNA Qual (PCR) NEGATIVE 04/23/20 04/23/20 04/23/20 15:40 16:30 16:30 WBC RBC Hgb Hct MCV MCH MCHC RDW Plt Count MPV Immature Gran % (Auto) Neut % (Auto) Lymph % (Auto) [place] % (Auto) Eos % (Auto) Baso % (Auto) Lymph # (Auto) [place] # (Auto) Eos # (Auto) Baso # (Auto) Abs Immat Gran (auto) Absolute Neuts (auto) Absolute Nucleated RBC Nucleated RBC % (auto) Hold Blue Top VBG pH VBG pCO2 VBG pO2 VBG HCO3 VBG O2 Saturation VBG Base Excess Sodium 140 Potassium 4.4 Chloride 100 Carbon Dioxide 10 L* D Anion Gap 34 H BUN 36 H Creatinine 2.06 H Estim Creat Clear Calc 40.9 Estimated GFR 34 POC Glucose 412 H* Random Glucose 397 H* Lactic Acid 2.5 H* Calcium 8.2 L D Magnesium Total Bilirubin Direct Bilirubin AST ALT Alkaline Phosphatase Troponin I High Sens Total Protein Albumin Lipase Urine Color Urine Appearance Urine pH Ur Specific [place] Urine Protein Urine Glucose (UA) Urine Ketones Urine Blood Urine Nitrite Ur Leukocyte Esterase Urine Opiates Screen Ur Barbiturates Screen Ur Phencyclidine Scrn Ur Amphetamines Screen U Benzodiazepines Scrn Urine Cocaine Screen U Marijuana (THC) Screen Acetone, Qual Coronavirus (PCR) Influenza Type A (PCR) Influenza Type B (PCR) RSV RNA Qual (PCR) 04/23/20 04/23/20 04/23/20 17:13 18:13 18:45 WBC RBC Hgb Hct MCV MCH MCHC RDW Plt Count MPV Immature Gran % (Auto) Neut % (Auto) Lymph % (Auto) [place] % (Auto) Eos % (Auto) Baso % (Auto) Lymph # (Auto) [place] # (Auto) Eos # (Auto) Baso # (Auto) Abs Immat Gran (auto) Absolute Neuts (auto) Absolute Nucleated RBC Nucleated RBC % (auto) Hold Blue Top VBG pH VBG pCO2 VBG pO2 VBG HCO3 VBG O2 Saturation VBG Base Excess Sodium Potassium Chloride Carbon Dioxide Anion Gap BUN Creatinine Estim Creat Clear Calc Estimated GFR POC Glucose 303 H 261 H Random Glucose Lactic Acid Calcium Magnesium Total Bilirubin Direct Bilirubin AST ALT Alkaline Phosphatase Troponin I High Sens Total Protein Albumin Lipase Urine Color Urine Appearance Urine pH Ur Specific [place] Urine Protein Urine Glucose (UA) Urine Ketones Urine Blood Urine Nitrite Ur Leukocyte Esterase Urine Opiates Screen Not Detected Ur Barbiturates Screen Not Detected Ur Phencyclidine Scrn Not Detected Ur Amphetamines Screen Not Detected U Benzodiazepines Scrn Not Detected Urine Cocaine Screen Not Detected U Marijuana (THC) Screen Not Detected Acetone, Qual Coronavirus (PCR) Influenza Type A (PCR) Influenza Type B (PCR) RSV RNA Qual (PCR) 04/23/20 04/23/20 04/23/20 18:45 19:07 20:08 WBC RBC Hgb Hct MCV MCH MCHC RDW Plt Count MPV Immature Gran % (Auto) Neut % (Auto) Lymph % (Auto) [place] % (Auto) Eos % (Auto) Baso % (Auto) Lymph # (Auto) [place] # (Auto) Eos # (Auto) Baso # (Auto) Abs Immat Gran (auto) Absolute Neuts (auto) Absolute Nucleated RBC Nucleated RBC % (auto) Hold Blue Top VBG pH VBG pCO2 VBG pO2 VBG HCO3 VBG O2 Saturation VBG Base Excess Sodium Potassium Chloride Carbon Dioxide Anion Gap BUN Creatinine Estim Creat Clear Calc Estimated GFR POC Glucose 237 H 265 H Random Glucose Lactic Acid Calcium Magnesium Total Bilirubin Direct Bilirubin AST ALT Alkaline Phosphatase Troponin I High Sens Total Protein Albumin Lipase Urine Color STRAW Urine Appearance CLEAR Urine pH 5.5 Ur Specific [place] >= 1.030 H Urine Protein NEG Urine Glucose (UA) 500 H Urine Ketones >=80 Urine Blood NEG Urine Nitrite NEG Ur Leukocyte Esterase NEG Urine Opiates Screen Ur Barbiturates Screen Ur Phencyclidine Scrn Ur Amphetamines Screen U Benzodiazepines Scrn Urine Cocaine Screen U Marijuana (THC) Screen Acetone, Qual Coronavirus (PCR) Influenza Type A (PCR) Influenza Type B (PCR) RSV RNA Qual (PCR) 04/23/20 04/23/20 04/23/20 21:03 21:11 21:53 WBC RBC Hgb Hct MCV MCH MCHC RDW Plt Count MPV Immature Gran % (Auto) Neut % (Auto) Lymph % (Auto) [place] % (Auto) Eos % (Auto) Baso % (Auto) Lymph # (Auto) [place] # (Auto) Eos # (Auto) Baso # (Auto) Abs Immat Gran (auto) Absolute Neuts (auto) Absolute Nucleated RBC Nucleated RBC % (auto) Hold Blue Top VBG pH VBG pCO2 VBG pO2 VBG HCO3 VBG O2 Saturation VBG Base Excess Sodium 136 Potassium 4.4 Chloride 102 Carbon Dioxide 17 L Anion Gap 21 H BUN 32 H Creatinine 1.73 H Estim Creat Clear Calc 48.7 Estimated GFR 41 POC Glucose 273 H 262 H Random Glucose 289 H Lactic Acid Calcium 7.8 L Magnesium Total Bilirubin Direct Bilirubin AST ALT Alkaline Phosphatase Troponin I High Sens Total Protein Albumin Lipase Urine Color Urine Appearance Urine pH Ur Specific [place] Urine Protein Urine Glucose (UA) Urine Ketones Urine Blood Urine Nitrite Ur Leukocyte Esterase Urine Opiates Screen Ur Barbiturates Screen Ur Phencyclidine Scrn Ur Amphetamines Screen U Benzodiazepines Scrn Urine Cocaine Screen U Marijuana (THC) Screen Acetone, Qual Coronavirus (PCR) Influenza Type A (PCR) Influenza Type B (PCR) RSV RNA Qual (PCR) 04/23/20 04/24/20 04/24/20 23:42 00:29 01:01 WBC RBC Hgb Hct MCV MCH MCHC RDW Plt Count MPV Immature Gran % (Auto) Neut % (Auto) Lymph % (Auto) [place] % (Auto) Eos % (Auto) Baso % (Auto) Lymph # (Auto) [place] # (Auto) Eos # (Auto) Baso # (Auto) Abs Immat Gran (auto) Absolute Neuts (auto) Absolute Nucleated RBC Nucleated RBC % (auto) Hold Blue Top VBG pH VBG pCO2 VBG pO2 VBG HCO3 VBG O2 Saturation VBG Base Excess Sodium 137 Potassium 3.7 Chloride 101 Carbon Dioxide 23 Anion Gap 17 BUN 30 H Creatinine 1.64 H Estim Creat Clear Calc 51.4 Estimated GFR 44 POC Glucose 241 H 229 H Random Glucose 192 H Lactic Acid Calcium 7.9 L Magnesium Total Bilirubin Direct Bilirubin AST ALT Alkaline Phosphatase Troponin I High Sens Total Protein Albumin Lipase Urine Color Urine Appearance Urine pH Ur Specific [place] Urine Protein Urine Glucose (UA) Urine Ketones Urine Blood Urine Nitrite Ur Leukocyte Esterase Urine Opiates Screen Ur Barbiturates Screen Ur Phencyclidine Scrn Ur Amphetamines Screen U Benzodiazepines Scrn Urine Cocaine Screen U Marijuana (THC) Screen Acetone, Qual Coronavirus (PCR) Influenza Type A (PCR) Influenza Type B (PCR) RSV RNA Qual (PCR) 04/24/20 04/24/20 04/24/20 03:03 04:54 04:54 WBC 7.9 RBC 4.12 L D Hgb 12.3 L D Hct 36.0 L D MCV 87.4 MCH 29.9 MCHC 34.2 RDW 12.5 Plt Count 200 MPV 10.9 Immature Gran % (Auto) 0.5 H Neut % (Auto) 66.1 Lymph % (Auto) 24.5 [place] % (Auto) 8.8 Eos % (Auto) 0.0 Baso % (Auto) 0.1 Lymph # (Auto) 1.9 [place] # (Auto) 0.7 Eos # (Auto) 0.0 Baso # (Auto) 0.0 Abs Immat Gran (auto) 0.04 H Absolute Neuts (auto) 5.2 Absolute Nucleated RBC 0.000 Nucleated RBC % (auto) 0.0 Hold Blue Top VBG pH VBG pCO2 VBG pO2 VBG HCO3 VBG O2 Saturation VBG Base Excess Sodium 137 Potassium 4.1 Chloride 102 Carbon Dioxide 21 L Anion Gap 18 BUN 26 H Creatinine 1.43 H Estim Creat Clear Calc 58.9 Estimated GFR 52 POC Glucose 105 Random Glucose 111 D Lactic Acid Calcium 7.8 L Magnesium Total Bilirubin Direct Bilirubin AST ALT Alkaline Phosphatase Troponin I High Sens Total Protein Albumin Lipase Urine Color Urine Appearance Urine pH Ur Specific [place] Urine Protein Urine Glucose (UA) Urine Ketones Urine Blood Urine Nitrite Ur Leukocyte Esterase Urine Opiates Screen Ur Barbiturates Screen Ur Phencyclidine Scrn Ur Amphetamines Screen U Benzodiazepines Scrn Urine Cocaine Screen U Marijuana (THC) Screen Acetone, Qual Coronavirus (PCR) Influenza Type A (PCR) Influenza Type B (PCR) RSV RNA Qual (PCR) 04/24/20 08:07 WBC RBC Hgb Hct MCV MCH MCHC RDW Plt Count MPV Immature Gran % (Auto) Neut % (Auto) Lymph % (Auto) [place] % (Auto) Eos % (Auto) Baso % (Auto) Lymph # (Auto) [place] # (Auto) Eos # (Auto) Baso # (Auto) Abs Immat Gran (auto) Absolute Neuts (auto) Absolute Nucleated RBC Nucleated RBC % (auto) Hold Blue Top VBG pH VBG pCO2 VBG pO2 VBG HCO3 VBG O2 Saturation VBG Base Excess Sodium Potassium Chloride Carbon Dioxide Anion Gap BUN Creatinine Estim Creat Clear Calc Estimated GFR POC Glucose 154 H Random Glucose Lactic Acid Calcium Magnesium Total Bilirubin Direct Bilirubin AST ALT Alkaline Phosphatase Troponin I High Sens Total Protein Albumin Lipase Urine Color Urine Appearance Urine pH Ur Specific [place] Urine Protein Urine Glucose (UA) Urine Ketones Urine Blood Urine Nitrite Ur Leukocyte Esterase Urine Opiates Screen Ur Barbiturates Screen Ur Phencyclidine Scrn Ur Amphetamines Screen U Benzodiazepines Scrn Urine Cocaine Screen U Marijuana (THC) Screen Acetone, Qual Coronavirus (PCR) Influenza Type A (PCR) Influenza Type B (PCR) RSV RNA Qual (PCR) Progress Note: A&P Time Spent With Patient Time: Total time spent is greater than 50% in coordination of care (as documented) at patient's floor/unit and/or counseling patient: Total time spent with greater than 50% in coordination of care (as documented) at patient's floor/unit and/or counseling patient:: 0
[2020-04-24 11:33] LABS: Glucose, Whole Blood 140 mg/dL (60-115)
[2020-04-24 11:41] LABS: Phosphorus 3.2 mg/dL (2.7-4.5)
[2020-04-24 16:20] LABS: Glucose, Whole Blood 206 mg/dL (60-115)
[2020-04-24 16:23] LABS: Hematocrit 41.6 % (42-52); Hemoglobin 13.9 g/dl (14.0-18.0)
--- NOTE | 2020-04-24 16:33 | PC.NURSE ---
Addendum entered by Marian Darling RN 04/24/20 17:13: MAALOX 30ML PO AND MORPHINE 2MG IVP ONE TIME ORDERS ADMINISTERED. NEW PRN ZOFRAN 4MG IVP X 1 ADMINISTERED. WILL CONTINUE TO MONITOR. Original Note: PT C/O NEW ABDOMINAL PAIN CRAMPING , ATTEMPTED TO USE COMMODE FOR BM - UNSUCCESSFUL. ABDOMEN SOFT, BUT TENDER TO TOUCH PER PT. MD NOTIFIED AND BEDSIDE TO EVALUATE. PT C/O SOB WHEN GETTING UP AND BACK TO BED FROM COMMODE, 2L NC APPLIED FOR COMFORT. 02 99%. MD AWARE. PRN TYLENOL 650 MG ADMINISTERED X 2 THIS SHIFT FOR C/O OF HEADACHE AND GENERAL BODY ACHES. MINIMAL EFFECT PER PT. ICE PACKS ALSO GIVEN.
[2020-04-24 16:48] LABS: Blood Urea Nitrogen 19 mg/dL (9-16); Creatinine Clr Calc Pharmacy 59.8; Estimated Glomerular Filt Rate 52; Glucose Random 197 mg/dL (60-115)
[2020-04-24] MEDS: Magnesium Hydrox/Alum Hydrox 30 ML ORAL.SUSP PO (16:57)
[2020-04-24] MEDS: ondansetron HCL 4 MG/2 ML VIAL IVPUSH (16:57)
[2020-04-24 17:00] LABS: Anion Gap 27 (12-20); Calcium 8.7 mg/dL (8.4-10.2); Carbon Dioxide 14 mmol/L (22-29); Chloride 98 mmol/L (96-108); Potassium 4.5 mmol/l (3.3-5.1); Sodium 134 mmol/L (135-145)
[2020-04-24] MEDS: Morphine Sulfate 2 MG/ML CARTRIDGE IVPUSH (17:07)
[2020-04-24] MEDS: Famotidine/PF 20 MG/2 ML VIAL 40 MG IVPUSH (20:41)
[2020-04-24 23:28] LABS: Glucose, Whole Blood 161 mg/dL (60-115)
[2020-04-25] MEDS: Acetaminophen 325 MG TABLET 650 MG PO (05:17)
[2020-04-25 06:00] VITALS: BMI 25.7
[2020-04-25 07:26] LABS: Glucose, Whole Blood 221 mg/dL (60-115)
[2020-04-25 08:00] VITALS: BP 109/80; PULSE 71; RESP 18; TEMP 36.3; O2SAT 97
[2020-04-25] MEDS: Famotidine/PF 20 MG/2 ML VIAL 40 MG IVPUSH (08:31)
[2020-04-25] MEDS: Cholecalciferol (Vitamin D3) 25 MCG TABLET 50 MCG PO (08:32)
[2020-04-25] MEDS: Zinc Sulfate 220 MG CAPSULE PO (08:32)
[2020-04-25] MEDS: Ascorbic Acid 500 MG TABLET PO (08:32)
[2020-04-25] MEDS: Insulin Lispro 100 UNIT/ML 3 ML VIAL SUBCUT (08:32)
[2020-04-25 08:42] LABS: Hematocrit 35.5 % (42-52); Hemoglobin 12.3 g/dl (14.0-18.0); Mean Corpuscular HGB Conc 34.6 g/dl (31.0-36.0); Mean Corpuscular Hemoglobin 29.7 pg (27.0-33.0); Mean Corpuscular Volume 85.7 fL (80-98); Mean Platelet Volume 10.4 fL (9.4-12.4); Platelet Count 163 X10*3/uL (160-400); Red Blood Count 4.14 X10*6/uL (4.60-5.80); Red Cell Distribution Width 12.2 % (11.0-16.0); White Blood Count 4.2 X10*3/uL (4.8-10.8)
[2020-04-25 09:17] LABS: Anion Gap 17 (12-20); Blood Urea Nitrogen 12 mg/dL (9-16); Calcium 7.9 mg/dL (8.4-10.2); Carbon Dioxide 19 mmol/L (22-29); Chloride 96 mmol/L (96-108); Creatinine Clr Calc Pharmacy 72.1; Estimated Glomerular Filt Rate > 60; Glucose Fasting 213 mg/dL (60-99); Potassium 4.1 mmol/l (3.3-5.1); Sodium 128 mmol/L (135-145)
--- NOTE | 2020-04-25 10:37 | MHC.CLN ---
RECOMMEND 2000 CALORIES PER DAY TO MEET ESTIMATED KC[facility] NEEDS WILL UPDATE DIET
[2020-04-25 11:23] LABS: Glucose, Whole Blood 170 mg/dL (60-115)
--- NOTE | 2020-04-25 11:26 | MHC.CM.PN ---
CALL TO [facility] [phone] THEY ARE ACCEPTING PATIENT TRANSPORT. TAXI VOUCHER COMPLETED AND BEING BROUGHT TO UNIT. RN CAN CONTACT [facility] ONCE PATIENT IS READY FOR DISCHARGE.
--- NOTE | 2020-04-25 13:08 | PM.DS ---
DS: Providers Provider Date of Service: 04/25/20 Date of admission: 04/23/20 14:36 Primary care physician: Unknown Physician DS: Diagnosis Discharge Diagnosis (1) Diabetes: Status: Acute (2) DKA (diabetic ketoacidoses): Status: Acute (3) TISH (acute kidney injury): Status: Acute (4) COVID-19: Status: Acute DS: Summary Hospital Course Hospital Course: patient was admitted for DKA. his anion gap was closed and was able to tolerate po. he tested positive for covid but was asymptomatic, he will remain isolated at home and monitor his symptoms. Time Spent with Patient Time attestation: Total time spent providing and/or coordinating discharge services: Discharge coordination time: Greater than 30 minutes Physical Exam Vital Signs: Vital Signs: Last Vital Signs Temp 97.3 F 04/25/20 08:00 Pulse 71 04/25/20 08:00 Resp 18 04/25/20 08:00 BP 109/80 04/25/20 08:00 Pulse Ox 97 04/25/20 08:00 Body Mass Index 25.7 General: AO X 3, no acute distress Resp: CTA bilateral CVS: S1,S2,RRR GI: soft, non tender, non distended Neuro: motor grossly intact Psych: appropriate affect DS: Data Data Completed and Pending Labs on day of discharge: Laboratory Tests 04/23/20 04/23/20 04/23/20 12:10 12:31 12:31 WBC 9.0 RBC 5.35 Hgb 16.1 Hct 47.9 MCV 89.5 MCH 30.1 MCHC 33.6 RDW 12.4 Plt Count 232 MPV 11.1 Immature Gran % (Auto) 0.4 Neut % (Auto) 85.2 H Lymph % (Auto) 12.2 L [place] % (Auto) 2.1 Eos % (Auto) 0.0 Baso % (Auto) 0.1 Lymph # (Auto) 1.1 L [place] # (Auto) 0.2 Eos # (Auto) 0.0 Baso # (Auto) 0.0 Abs Immat Gran (auto) 0.04 H Absolute Neuts (auto) 7.7 Absolute Nucleated RBC 0.000 Nucleated RBC % (auto) 0.0 Hold Blue Top VBG pH VBG pCO2 VBG pO2 VBG HCO3 VBG O2 Saturation VBG Base Excess Sodium Potassium Chloride Carbon Dioxide Anion Gap BUN Creatinine Estim Creat Clear Calc Estimated GFR POC Glucose 520 H* Random Glucose Fasting Glucose Lactic Acid 4.0 H* Calcium Phosphorus Magnesium Total Bilirubin Direct Bilirubin AST ALT Alkaline Phosphatase Troponin I High Sens Total Protein Albumin Lipase Urine Color Urine Appearance Urine pH Ur Specific Adger Urine Protein Urine Glucose (UA) Urine Ketones Urine Blood Urine Nitrite Ur Leukocyte Esterase Urine Opiates Screen Ur Barbiturates Screen Ur Phencyclidine Scrn Ur Amphetamines Screen U Benzodiazepines Scrn Urine Cocaine Screen U Marijuana (THC) Screen Acetone, Qual Coronavirus (PCR) Influenza Type A (PCR) Influenza Type B (PCR) RSV RNA Qual (PCR) 04/23/20 04/23/20 04/23/20 12:31 12:32 12:32 WBC RBC Hgb Hct MCV MCH MCHC RDW Plt Count MPV Immature Gran % (Auto) Neut % (Auto) Lymph % (Auto) [place] % (Auto) Eos % (Auto) Baso % (Auto) Lymph # (Auto) [place] # (Auto) Eos # (Auto) Baso # (Auto) Abs Immat Gran (auto) Absolute Neuts (auto) Absolute Nucleated RBC Nucleated RBC % (auto) Hold Blue Top SEE NOTE VBG pH VBG pCO2 VBG pO2 VBG HCO3 VBG O2 Saturation VBG Base Excess Sodium 138 Potassium 5.1 Chloride 88 L Carbon Dioxide 14 L Anion Gap 41 H BUN 39 H Creatinine 2.50 H Estim Creat Clear Calc 33.7 Estimated GFR 27 POC Glucose Random Glucose 586 H* Fasting Glucose Lactic Acid Calcium 9.0 Phosphorus Magnesium 2.4 Total Bilirubin 0.2 Direct Bilirubin 0.2 AST 18 ALT 18 Alkaline Phosphatase 81 Troponin I High Sens < 3.5 Total Protein 7.7 Albumin 4.4 Lipase 13 Urine Color Urine Appearance Urine pH Ur Specific Adger Urine Protein Urine Glucose (UA) Urine Ketones Urine Blood Urine Nitrite Ur Leukocyte Esterase Urine Opiates Screen Ur Barbiturates Screen Ur Phencyclidine Scrn Ur Amphetamines Screen U Benzodiazepines Scrn Urine Cocaine Screen U Marijuana (THC) Screen Acetone, Qual Moderate H Coronavirus (PCR) Influenza Type A (PCR) Influenza Type B (PCR) RSV RNA Qual (PCR) 04/23/20 04/23/20 04/23/20 12:45 13:55 14:01 WBC RBC Hgb Hct MCV MCH MCHC RDW Plt Count MPV Immature Gran % (Auto) Neut % (Auto) Lymph % (Auto) [place] % (Auto) Eos % (Auto) Baso % (Auto) Lymph # (Auto) [place] # (Auto) Eos # (Auto) Baso # (Auto) Abs Immat Gran (auto) Absolute Neuts (auto) Absolute Nucleated RBC Nucleated RBC % (auto) Hold Blue Top VBG pH 7.13 L* VBG pCO2 35 VBG pO2 72 VBG HCO3 12 VBG O2 Saturation 85.0 VBG Base Excess -15.7 Sodium Potassium Chloride Carbon Dioxide Anion Gap BUN Creatinine Estim Creat Clear Calc Estimated GFR POC Glucose Random Glucose Fasting Glucose Lactic Acid Calcium Phosphorus Magnesium Total Bilirubin Direct Bilirubin AST ALT Alkaline Phosphatase Troponin I High Sens < 3.5 Total Protein Albumin Lipase Urine Color Urine Appearance Urine pH Ur Specific Adger Urine Protein Urine Glucose (UA) Urine Ketones Urine Blood Urine Nitrite Ur Leukocyte Esterase Urine Opiates Screen Ur Barbiturates Screen Ur Phencyclidine Scrn Ur Amphetamines Screen U Benzodiazepines Scrn Urine Cocaine Screen U Marijuana (THC) Screen Acetone, Qual Coronavirus (PCR) POSITIVE A Influenza Type A (PCR) NEGATIVE Influenza Type B (PCR) NEGATIVE RSV RNA Qual (PCR) NEGATIVE 04/23/20 04/23/20 04/23/20 15:40 16:30 16:30 WBC RBC Hgb Hct MCV MCH MCHC RDW Plt Count MPV Immature Gran % (Auto) Neut % (Auto) Lymph % (Auto) [place] % (Auto) Eos % (Auto) Baso % (Auto) Lymph # (Auto) [place] # (Auto) Eos # (Auto) Baso # (Auto) Abs Immat Gran (auto) Absolute Neuts (auto) Absolute Nucleated RBC Nucleated RBC % (auto) Hold Blue Top VBG pH VBG pCO2 VBG pO2 VBG HCO3 VBG O2 Saturation VBG Base Excess Sodium 140 Potassium 4.4 Chloride 100 Carbon Dioxide 10 L* D Anion Gap 34 H BUN 36 H Creatinine 2.06 H Estim Creat Clear Calc 40.9 Estimated GFR 34 POC Glucose 412 H* Random Glucose 397 H* Fasting Glucose Lactic Acid 2.5 H* Calcium 8.2 L D Phosphorus Magnesium Total Bilirubin Direct Bilirubin AST ALT Alkaline Phosphatase Troponin I High Sens Total Protein Albumin Lipase Urine Color Urine Appearance Urine pH Ur Specific Adger Urine Protein Urine Glucose (UA) Urine Ketones Urine Blood Urine Nitrite Ur Leukocyte Esterase Urine Opiates Screen Ur Barbiturates Screen Ur Phencyclidine Scrn Ur Amphetamines Screen U Benzodiazepines Scrn Urine Cocaine Screen U Marijuana (THC) Screen Acetone, Qual Coronavirus (PCR) Influenza Type A (PCR) Influenza Type B (PCR) RSV RNA Qual (PCR) 04/23/20 04/23/20 04/23/20 17:13 18:13 18:45 WBC RBC Hgb Hct MCV MCH MCHC RDW Plt Count MPV Immature Gran % (Auto) Neut % (Auto) Lymph % (Auto) [place] % (Auto) Eos % (Auto) Baso % (Auto) Lymph # (Auto) [place] # (Auto) Eos # (Auto) Baso # (Auto) Abs Immat Gran (auto) Absolute Neuts (auto) Absolute Nucleated RBC Nucleated RBC % (auto) Hold Blue Top VBG pH VBG pCO2 VBG pO2 VBG HCO3 VBG O2 Saturation VBG Base Excess Sodium Potassium Chloride Carbon Dioxide Anion Gap BUN Creatinine Estim Creat Clear Calc Estimated GFR POC Glucose 303 H 261 H Random Glucose Fasting Glucose Lactic Acid Calcium Phosphorus Magnesium Total Bilirubin Direct Bilirubin AST ALT Alkaline Phosphatase Troponin I High Sens Total Protein Albumin Lipase Urine Color Urine Appearance Urine pH Ur Specific Adger Urine Protein Urine Glucose (UA) Urine Ketones Urine Blood Urine Nitrite Ur Leukocyte Esterase Urine Opiates Screen Not Detected Ur Barbiturates Screen Not Detected Ur Phencyclidine Scrn Not Detected Ur Amphetamines Screen Not Detected U Benzodiazepines Scrn Not Detected Urine Cocaine Screen Not Detected U Marijuana (THC) Screen Not Detected Acetone, Qual Coronavirus (PCR) Influenza Type A (PCR) Influenza Type B (PCR) RSV RNA Qual (PCR) 04/23/20 04/23/20 04/23/20 18:45 19:07 20:08 WBC RBC Hgb Hct MCV MCH MCHC RDW Plt Count MPV Immature Gran % (Auto) Neut % (Auto) Lymph % (Auto) [place] % (Auto) Eos % (Auto) Baso % (Auto) Lymph # (Auto) [place] # (Auto) Eos # (Auto) Baso # (Auto) Abs Immat Gran (auto) Absolute Neuts (auto) Absolute Nucleated RBC Nucleated RBC % (auto) Hold Blue Top VBG pH VBG pCO2 VBG pO2 VBG HCO3 VBG O2 Saturation VBG Base Excess Sodium Potassium Chloride Carbon Dioxide Anion Gap BUN Creatinine Estim Creat Clear Calc Estimated GFR POC Glucose 237 H 265 H Random Glucose Fasting Glucose Lactic Acid Calcium Phosphorus Magnesium Total Bilirubin Direct Bilirubin AST ALT Alkaline Phosphatase Troponin I High Sens Total Protein Albumin Lipase Urine Color STRAW Urine Appearance CLEAR Urine pH 5.5 Ur Specific Adger >= 1.030 H Urine Protein NEG Urine Glucose (UA) 500 H Urine Ketones >=80 Urine Blood NEG Urine Nitrite NEG Ur Leukocyte Esterase NEG Urine Opiates Screen Ur Barbiturates Screen Ur Phencyclidine Scrn Ur Amphetamines Screen U Benzodiazepines Scrn Urine Cocaine Screen U Marijuana (THC) Screen Acetone, Qual Coronavirus (PCR) Influenza Type A (PCR) Influenza Type B (PCR) RSV RNA Qual (PCR) 04/23/20 04/23/20 04/23/20 21:03 21:11 21:53 WBC RBC Hgb Hct MCV MCH MCHC RDW Plt Count MPV Immature Gran % (Auto) Neut % (Auto) Lymph % (Auto) [place] % (Auto) Eos % (Auto) Baso % (Auto) Lymph # (Auto) [place] # (Auto) Eos # (Auto) Baso # (Auto) Abs Immat Gran (auto) Absolute Neuts (auto) Absolute Nucleated RBC Nucleated RBC % (auto) Hold Blue Top VBG pH VBG pCO2 VBG pO2 VBG HCO3 VBG O2 Saturation VBG Base Excess Sodium 136 Potassium 4.4 Chloride 102 Carbon Dioxide 17 L Anion Gap 21 H BUN 32 H Creatinine 1.73 H Estim Creat Clear Calc 48.7 Estimated GFR 41 POC Glucose 273 H 262 H Random Glucose 289 H Fasting Glucose Lactic Acid Calcium 7.8 L Phosphorus Magnesium Total Bilirubin Direct Bilirubin AST ALT Alkaline Phosphatase Troponin I High Sens Total Protein Albumin Lipase Urine Color Urine Appearance Urine pH Ur Specific Adger Urine Protein Urine Glucose (UA) Urine Ketones Urine Blood Urine Nitrite Ur Leukocyte Esterase Urine Opiates Screen Ur Barbiturates Screen Ur Phencyclidine Scrn Ur Amphetamines Screen U Benzodiazepines Scrn Urine Cocaine Screen U Marijuana (THC) Screen Acetone, Qual Coronavirus (PCR) Influenza Type A (PCR) Influenza Type B (PCR) RSV RNA Qual (PCR) 04/23/20 04/24/20 04/24/20 23:42 00:29 01:01 WBC RBC Hgb Hct MCV MCH MCHC RDW Plt Count MPV Immature Gran % (Auto) Neut % (Auto) Lymph % (Auto) [place] % (Auto) Eos % (Auto) Baso % (Auto) Lymph # (Auto) [place] # (Auto) Eos # (Auto) Baso # (Auto) Abs Immat Gran (auto) Absolute Neuts (auto) Absolute Nucleated RBC Nucleated RBC % (auto) Hold Blue Top VBG pH VBG pCO2 VBG pO2 VBG HCO3 VBG O2 Saturation VBG Base Excess Sodium 137 Potassium 3.7 Chloride 101 Carbon Dioxide 23 Anion Gap 17 BUN 30 H Creatinine 1.64 H Estim Creat Clear Calc 51.4 Estimated GFR 44 POC Glucose 241 H 229 H Random Glucose 192 H Fasting Glucose Lactic Acid Calcium 7.9 L Phosphorus Magnesium Total Bilirubin Direct Bilirubin AST ALT Alkaline Phosphatase Troponin I High Sens Total Protein Albumin Lipase Urine Color Urine Appearance Urine pH Ur Specific Adger Urine Protein Urine Glucose (UA) Urine Ketones Urine Blood Urine Nitrite Ur Leukocyte Esterase Urine Opiates Screen Ur Barbiturates Screen Ur Phencyclidine Scrn Ur Amphetamines Screen U Benzodiazepines Scrn Urine Cocaine Screen U Marijuana (THC) Screen Acetone, Qual Coronavirus (PCR) Influenza Type A (PCR) Influenza Type B (PCR) RSV RNA Qual (PCR) 04/24/20 04/24/20 04/24/20 03:03 04:54 04:54 WBC 7.9 RBC 4.12 L D Hgb 12.3 L D Hct 36.0 L D MCV 87.4 MCH 29.9 MCHC 34.2 RDW 12.5 Plt Count 200 MPV 10.9 Immature Gran % (Auto) 0.5 H Neut % (Auto) 66.1 Lymph % (Auto) 24.5 [place] % (Auto) 8.8 Eos % (Auto) 0.0 Baso % (Auto) 0.1 Lymph # (Auto) 1.9 [place] # (Auto) 0.7 Eos # (Auto) 0.0 Baso # (Auto) 0.0 Abs Immat Gran (auto) 0.04 H Absolute Neuts (auto) 5.2 Absolute Nucleated RBC 0.000 Nucleated RBC % (auto) 0.0 Hold Blue Top VBG pH VBG pCO2 VBG pO2 VBG HCO3 VBG O2 Saturation VBG Base Excess Sodium 137 Potassium 4.1 Chloride 102 Carbon Dioxide 21 L Anion Gap 18 BUN 26 H Creatinine 1.43 H Estim Creat Clear Calc 58.9 Estimated GFR 52 POC Glucose 105 Random Glucose 111 D Fasting Glucose Lactic Acid Calcium 7.8 L Phosphorus 3.2 Magnesium 2.0 Total Bilirubin Direct Bilirubin AST ALT Alkaline Phosphatase Troponin I High Sens Total Protein Albumin Lipase Urine Color Urine Appearance Urine pH Ur Specific Adger Urine Protein Urine Glucose (UA) Urine Ketones Urine Blood Urine Nitrite Ur Leukocyte Esterase Urine Opiates Screen Ur Barbiturates Screen Ur Phencyclidine Scrn Ur Amphetamines Screen U Benzodiazepines Scrn Urine Cocaine Screen U Marijuana (THC) Screen Acetone, Qual Coronavirus (PCR) Influenza Type A (PCR) Influenza Type B (PCR) RSV RNA Qual (PCR) 04/24/20 04/24/20 04/24/20 08:07 11:23 15:58 WBC RBC Hgb 13.9 L Hct 41.6 L MCV MCH MCHC RDW Plt Count MPV Immature Gran % (Auto) Neut % (Auto) Lymph % (Auto) [place] % (Auto) Eos % (Auto) Baso % (Auto) Lymph # (Auto) [place] # (Auto) Eos # (Auto) Baso # (Auto) Abs Immat Gran (auto) Absolute Neuts (auto) Absolute Nucleated RBC Nucleated RBC % (auto) Hold Blue Top VBG pH VBG pCO2 VBG pO2 VBG HCO3 VBG O2 Saturation VBG Base Excess Sodium Potassium Chloride Carbon Dioxide Anion Gap BUN Creatinine Estim Creat Clear Calc Estimated GFR POC Glucose 154 H 140 H Random Glucose Fasting Glucose Lactic Acid Calcium Phosphorus Magnesium Total Bilirubin Direct Bilirubin AST ALT Alkaline Phosphatase Troponin I High Sens Total Protein Albumin Lipase Urine Color Urine Appearance Urine pH Ur Specific Adger Urine Protein Urine Glucose (UA) Urine Ketones Urine Blood Urine Nitrite Ur Leukocyte Esterase Urine Opiates Screen Ur Barbiturates Screen Ur Phencyclidine Scrn Ur Amphetamines Screen U Benzodiazepines Scrn Urine Cocaine Screen U Marijuana (THC) Screen Acetone, Qual Coronavirus (PCR) Influenza Type A (PCR) Influenza Type B (PCR) RSV RNA Qual (PCR) 04/24/20 04/24/20 04/24/20 15:58 16:13 20:34 WBC RBC Hgb Hct MCV MCH MCHC RDW Plt Count MPV Immature Gran % (Auto) Neut % (Auto) Lymph % (Auto) [place] % (Auto) Eos % (Auto) Baso % (Auto) Lymph # (Auto) [place] # (Auto) Eos # (Auto) Baso # (Auto) Abs Immat Gran (auto) Absolute Neuts (auto) Absolute Nucleated RBC Nucleated RBC % (auto) Hold Blue Top VBG pH VBG pCO2 VBG pO2 VBG HCO3 VBG O2 Saturation VBG Base Excess Sodium 134 L Potassium 4.5 Chloride 98 Carbon Dioxide 14 L Anion Gap 27 H BUN 19 H Creatinine 1.41 H Estim Creat Clear Calc 59.8 Estimated GFR 52 POC Glucose 206 H 161 H Random Glucose 197 H D Fasting Glucose Lactic Acid Calcium 8.7 D Phosphorus Magnesium Total Bilirubin Direct Bilirubin AST ALT Alkaline Phosphatase Troponin I High Sens Total Protein Albumin Lipase Urine Color Urine Appearance Urine pH Ur Specific Adger Urine Protein Urine Glucose (UA) Urine Ketones Urine Blood Urine Nitrite Ur Leukocyte Esterase Urine Opiates Screen Ur Barbiturates Screen Ur Phencyclidine Scrn Ur Amphetamines Screen U Benzodiazepines Scrn Urine Cocaine Screen U Marijuana (THC) Screen Acetone, Qual Coronavirus (PCR) Influenza Type A (PCR) Influenza Type B (PCR) RSV RNA Qual (PCR) 04/25/20 04/25/20 04/25/20 07:22 08:33 08:34 WBC 4.2 L RBC 4.14 L Hgb 12.3 L Hct 35.5 L MCV 85.7 MCH 29.7 MCHC 34.6 RDW 12.2 Plt Count 163 MPV 10.4 Immature Gran % (Auto) Neut % (Auto) Lymph % (Auto) [place] % (Auto) Eos % (Auto) Baso % (Auto) Lymph # (Auto) [place] # (Auto) Eos # (Auto) Baso # (Auto) Abs Immat Gran (auto) Absolute Neuts (auto) Absolute Nucleated RBC 0.000 Nucleated RBC % (auto) 0.0 Hold Blue Top VBG pH VBG pCO2 VBG pO2 VBG HCO3 VBG O2 Saturation VBG Base Excess Sodium 128 L Potassium 4.1 Chloride 96 Carbon Dioxide 19 L Anion Gap 17 BUN 12 Creatinine 1.17 Estim Creat Clear Calc 72.1 Estimated GFR > 60 POC Glucose 221 H Random Glucose Fasting Glucose 213 H Lactic Acid Calcium 7.9 L D Phosphorus Magnesium Total Bilirubin Direct Bilirubin AST ALT Alkaline Phosphatase Troponin I High Sens Total Protein Albumin Lipase Urine Color Urine Appearance Urine pH Ur Specific Adger Urine Protein Urine Glucose (UA) Urine Ketones Urine Blood Urine Nitrite Ur Leukocyte Esterase Urine Opiates Screen Ur Barbiturates Screen Ur Phencyclidine Scrn Ur Amphetamines Screen U Benzodiazepines Scrn Urine Cocaine Screen U Marijuana (THC) Screen Acetone, Qual Coronavirus (PCR) Influenza Type A (PCR) Influenza Type B (PCR) RSV RNA Qual (PCR) 04/25/20 11:16 WBC RBC Hgb Hct MCV MCH MCHC RDW Plt Count MPV Immature Gran % (Auto) Neut % (Auto) Lymph % (Auto) [place] % (Auto) Eos % (Auto) Baso % (Auto) Lymph # (Auto) [place] # (Auto) Eos # (Auto) Baso # (Auto) Abs Immat Gran (auto) Absolute Neuts (auto) Absolute Nucleated RBC Nucleated RBC % (auto) Hold Blue Top VBG pH VBG pCO2 VBG pO2 VBG HCO3 VBG O2 Saturation VBG Base Excess Sodium Potassium Chloride Carbon Dioxide Anion Gap BUN Creatinine Estim Creat Clear Calc Estimated GFR POC Glucose 170 H Random Glucose Fasting Glucose Lactic Acid Calcium Phosphorus Magnesium Total Bilirubin Direct Bilirubin AST ALT Alkaline Phosphatase Troponin I High Sens Total Protein Albumin Lipase Urine Color Urine Appearance Urine pH Ur Specific Adger Urine Protein Urine Glucose (UA) Urine Ketones Urine Blood Urine Nitrite Ur Leukocyte Esterase Urine Opiates Screen Ur Barbiturates Screen Ur Phencyclidine Scrn Ur Amphetamines Screen U Benzodiazepines Scrn Urine Cocaine Screen U Marijuana (THC) Screen Acetone, Qual Coronavirus (PCR) Influenza Type A (PCR) Influenza Type B (PCR) RSV RNA Qual (PCR) Preliminary micro results at discharge 04/23/20 12:44 Blood Culture - Preliminary Blood - Venous No growth after 24 hours. 04/23/20 12:32 Blood Culture - Preliminary Blood - Venous No growth after 24 hours. Discharge Plan Discharge Patient Disposition: Home, Self-Care Referrals: Physician,Unknown [Primary Care Provider] - Discharge Medications: No Action Jardiance 10 mg Tablet 10 mg PO DAILY RF: 0 lisinopril 5 mg Tablet 5 mg PO DAILY RF: 0 metformin 500 mg Tablet 1,000 mg PO BID RF: 0 gabapentin 300 mg Capsule 300 mg PO 0800,1200 RF: 0 cholecalciferol (vitamin D3) [Vitamin D3] 25 mcg (1,000 unit) Tablet 25 mcg PO DAILY RF: 0 insulin lispro [Humalog KwikPen Insulin] 100 unit/mL Insulin Pen 0 unit SUBCUT TID RF: 0 Lantus U-100 Insulin 100 unit/mL Solution 20 unit SUBCUT BEDTIME RF: 0 Discharge Orders: Discharge Order (Routine); Ordered 04/25/20 Ordered By: Leroy Woodruff Activity on Discharge: As tolerated Visit Report Forms: Patient Portal Discharge page Care Plan Goals: recovery Health Concerns: DKA and covid Plan of Treatment: insulin, monitor covid symptoms, isolation
== END 2020-04-25 13:51 | disposition home or self-care (01) | DRG 420 ==
LOC: HO.ED 14:28 → HO.EDOVER 15:10 → HO.ICU 17:33
PROVIDERS: Family Medicine; Physician Assistant; Physician Assistant Medical; Admitting Provider Anesthesiology; Emergency Provider Emergency Medicine Emergency Medical Services; PCP Internal Medicine; Visit Provider Internal Medicine
DX: E11.10 Type 2 diabetes mellitus with ketoacidosis without coma (principal); U07.1 COVID-19; N17.9 Acute kidney failure, unspecified; F10.10 Alcohol abuse, uncomplicated; F14.10 Cocaine abuse, uncomplicated; E86.0 Dehydration; Z79.4 Long term (current) use of insulin; Z79.899 Other long term (current) drug therapy
CPT/HCPCS: 0241U; 36415; 71045; 80048; 80076; 80307; 81003; 82009; 82803; 82947; 83605; 83690; 83735; 84100; 84484; 85014; 85018; 85025; 85027; 87040; 93005; 96361; 96374; 96375; 99285; 99291; J2270; J2405

== ENCOUNTER 2020-04-26 19:53 | Inpatient (IN) | payer MEDICAID, SELFPAY ==
--- NOTE | 2020-04-26 | ECG_ITS ---
Test Reason : EPIGASTRIC PAIN Blood Pressure : / mmHG Vent. Rate : 077 BPM Atrial Rate : 077 BPM P-R Int : 134 ms QRS Dur : 076 ms QT Int : 382 ms P-R-T Axes : 075 049 053 degrees QTc Int : 432 ms Normal sinus rhythm Normal ECG When compared with ECG of 26-DEC-2019 22:41, No significant change was found Referred By: Generic ED Physician Electronically Signed By:HEIDI FOSTER
[2020-04-26 20:02] VITALS: BP 151/103; PULSE 84; RESP 24; TEMP 37.4; O2SAT 95; BMI 25.1
--- NOTE | 2020-04-26 20:15 | PC.NURSE ---
Pt tearing electrodes off, pt removing mask, spitting in the bed and on the floor. Pt anxious, screaming in room.
--- NOTE | 2020-04-26 20:18 | PC.NURSE ---
This RN into room after hearing yelling, pt requesting shavon gabriela for his epigastric discomfort- advised this rn cannot offer that, only doctor can prescribe. This rn attempted to place pt on tele monitor, obtain EKG- pt refusing what the fuck is wrong with you people , pt spitting on floor. Pt speaks in clear and full sentences, rr even and unlabored, skin w/p/d, no obvious distress, thrashing in stretcher.
[2020-04-26 20:37] LABS: MANUAL DIFF FLAG NO
[2020-04-26] MEDS: ondansetron HCL 4 MG/2 ML VIAL IVPUSH (20:38)
[2020-04-26] MEDS: 0.9 % Sodium Chloride 1,000 ML 999 ML IV ×3 (20:39→23:14)
[2020-04-26 20:42] LABS: Basophils Percent Auto 0.1 % (0-2); Hematocrit 44.8 % (42-52); Hemoglobin 15.3 g/dl (14.0-18.0); Imm Gran Abs Auto 0.05 X10*3/uL (0.00-0.03); Imm Gran Pct Auto 0.6 % (0.0-0.4); Lymphocytes Absolute Auto 1.1 X10*3/uL (1.2-4.9); Lymphocytes Percent Auto 13.3 % (20-40); Mean Corpuscular HGB Conc 34.2 g/dl (31.0-36.0); Mean Corpuscular Hemoglobin 30.1 pg (27.0-33.0); Mean Platelet Volume 10.6 fL (9.4-12.4); Monocytes Absolute Auto 0.4 X10*3/uL (0.1-1.2); Monocytes Percent Auto 4.4 % (2-11); Neutrophils Absolute Auto 6.8 X10*3/uL (2.0-8.3); Neutrophils Percent Auto 81.6 % (45-73); Platelet Count 232 X10*3/uL (160-400); Red Blood Count 5.09 X10*6/uL (4.60-5.80); Red Cell Distribution Width 12.4 % (11.0-16.0); White Blood Count 8.4 X10*3/uL (4.8-10.8)
[2020-04-26 21:01] LABS: Ethanol < 10 mg/dL
[2020-04-26] MEDS: Acetaminophen 325 MG TABLET 650 MG PO (21:14)
--- NOTE | 2020-04-26 21:16 | PC.NURSE ---
Pt medicated with Tylenol per JUN.
[2020-04-26 21:44] LABS: Glucose, Whole Blood 332 mg/dL (60-115)
--- NOTE | 2020-04-26 21:57 | XR_ITS ---
EXAMINATION: XR CHEST CLINICAL INFORMATION: Cough. COMPARISON: Chest x-ray 04/24/2020 TECHNIQUE: Frontal view of the chest was obtained. 2204 hours FINDINGS: There are subtle patchy multifocal bilateral airspace opacities. There are small airspace opacities in the right midlung. There are more significant airspace opacities at the left lung base. These have worsened since the exam of 04/24/2020. No pleural effusion. Heart size is normal. Cardiac mediastinal contours are normal. No pulmonary vascular congestion. XR/XR chest 1V IMPRESSION: Bilateral multifocal airspace opacities which have worsened since prior chest x-ray 04/24/2020.
--- NOTE | 2020-04-26 21:59 | ED.WEAKNESS ---
HPI - Weakness General Chief complaint: Weakness Stated complaint: COVID Time Seen by Provider: 04/26/20 21:56 Source: patient Mode of arrival: EMS History of Present Illness HPI Narrative: This is a 54-year-old male past medical history of drug use/diabetes/COVID-19 positive who presents via EMS for complaints of chills and multiple episodes of nausea, nonbloody vomiting, without abdominal discomfort/diarrhea/ symptoms this started 2 days ago and have worsened. Since vomiting patient now is complaining of a burning significant pain within his chest but otherwise states that he is not short of breath but is weak. Related Data Home Medications Medication Instructions Recorded Confirmed Jardiance 10 mg PO DAILY 04/25/20 04/25/20 Lantus U-100 Insulin 20 unit SUBCUT BEDTIME 04/25/20 04/25/20 cholecalciferol (vitamin D3) 25 mcg PO DAILY 04/25/20 04/25/20 [Vitamin D3] gabapentin 300 mg PO 0800,1200 04/25/20 04/25/20 insulin lispro [Humalog KwikPen 0 unit SUBCUT TID 04/25/20 04/25/20 Insulin] lisinopril 5 mg PO DAILY 04/25/20 04/25/20 metformin 1,000 mg PO BID 04/25/20 04/25/20 Previous Rx's Medication Instructions Recorded blood sugar diagnostic [FreeStyle #100 ea 04/25/20 Lite Strips] Allergies Allergy/AdvReac Type Severity Reaction Status Date / Time No Known Allergies Allergy Unverified 04/24/20 08:19 [No Known Allergies*] Review of Systems Review of Systems: Pertinent positives and negatives as stated in HPI 10 point review systems is otherwise negative. [facility] Past Medical History Source: nursing notes reviewed Medical History Diabetes Substance abuse Social History Social History Household Members: Family Housing: Apartment Smoking Status: Never smoker Substance Use Type: Crack/Cocaine Advance Directives: No Advance Directives Information Provided: No service: No Current occupational status: unemployed Physical Exam Vital Signs: Vital Signs: Last Vital Signs Temp 99.4 F 04/26/20 20:02 Pulse 88 04/26/20 22:32 Resp 20 04/26/20 22:32 BP 149/99 H 04/26/20 22:32 Pulse Ox 96 04/26/20 22:32 Body Mass Index 25.1 VITAL SIGNS: Reviewed. GENERAL: Well developed, well nourished, in no acute distress. HEAD: Normocephalic/atraumatic, EYES: PERRLA, EOMI EARS: Ext canals without abnormality, TMs non-bulging and non-erythematous NOSE: Nares patent bilateral OROPHARYNX: no oral lesions noted, posterior pharynx clear, dry mucosa NECK: Supple, no adenopathy LUNGS: Normal breath sounds. SpO2<95> CARDIOVASCULAR: Regular rate and rhythm without noted murmurs ABDOMEN: Soft, non-tender, non-distended with bowel sounds. MUSCULOSKELETAL: No tenderness, deformities, or effusions noted on gross inspection. EXTREMITIES: No cyanosis, clubbing or edema. SKIN: Inspection of the skin reveals no rashes, ulcerations, jaundice, pallor, or petechiae. NEUROLOGIC: Alert and oriented x 4. Course Course Course Narrative: This is a 54-year-old male with history and clinical presentation consistent with possibility of DKA, gastroenteritis, alcohol use. Sirs response secondary to DKA and viral infection. Review of all investigations is consistent with DKA, TISH, known COVID-19 positivity, and patient will undergo aggressive fluid hydration/8 units insulin subcutaneous/starting insulin drip/ as well as treatment for acid reflux. Discussed case with power tool repair technician who is agreeable for admission. MDM - Weakness Lab Data Result diagrams: 04/26/20 20:32 04/26/20 21:48 Labs: Lab Results 04/26/20 04/26/20 04/26/20 Range/Units 20:32 20:32 20:33 WBC 8.4 (4.8-10.8) X10*3/uL RBC 5.09 D (4.60-5.80) X10*6/uL Hgb 15.3 D (14.0-18.0) g/dl Hct 44.8 D (42-52) % MCV 88.0 (80-98) fL MCH 30.1 (27.0-33.0) pg MCHC 34.2 (31.0-36.0) g/dl RDW 12.4 (11.0-16.0) % Plt Count 232 D (160-400) X10*3/uL MPV 10.6 (9.4-12.4) fL Immature Gran % (Auto) 0.6 H (0.0-0.4) % Neut % (Auto) 81.6 H (45-73) % Lymph % (Auto) 13.3 L (20-40) % [place] % (Auto) 4.4 (2-11) % Eos % (Auto) 0.0 (0-4) % Baso % (Auto) 0.1 (0-2) % Lymph # (Auto) 1.1 L (1.2-4.9) X10*3/uL [place] # (Auto) 0.4 (0.1-1.2) X10*3/uL Eos # (Auto) 0.0 (0.0-0.4) X10*3/uL Baso # (Auto) 0.0 (0.0-0.2) X10*3/uL Abs Immat Gran (auto) 0.05 H (0.00-0.03) X10*3/uL Absolute Neuts (auto) 6.8 (2.0-8.3) X10*3/uL Absolute Nucleated RBC 0.000 (0.0-0.012) X10*3/uL Nucleated RBC % (auto) 0.0 (0.0-0.2) /100WBC Hold Blue Top SEE NOTE Sodium (135-145) mmol/L Potassium (3.3-5.1) mmol/l Chloride (96-108) mmol/L Carbon Dioxide (22-29) mmol/L Anion Gap (12-20) BUN (9-16) mg/dL Creatinine (0.5-1.4) mg/dL Estim Creat Clear Calc Estimated GFR POC Glucose (60-115) mg/dL Random Glucose (60-115) mg/dL Lactic Acid (0.5-2.0) mmol/L Calcium (8.4-10.2) mg/dL Total Bilirubin (0.0-1.0) mg/dL AST (5-37) U/L ALT (0-40) U/L Alkaline Phosphatase (39-117) U/L Total Protein (6.5-8.0) g/dL Albumin (3.5-5.0) g/dL Lipase (8-78) U/L Ethyl Alcohol < 10 mg/dL Acetone, Qual (Negative) 04/26/20 04/26/20 04/26/20 Range/Units 21:40 21:48 21:53 WBC (4.8-10.8) X10*3/uL RBC (4.60-5.80) X10*6/uL Hgb (14.0-18.0) g/dl Hct (42-52) % MCV (80-98) fL MCH (27.0-33.0) pg MCHC (31.0-36.0) g/dl RDW (11.0-16.0) % Plt Count (160-400) X10*3/uL MPV (9.4-12.4) fL Immature Gran % (Auto) (0.0-0.4) % Neut % (Auto) (45-73) % Lymph % (Auto) (20-40) % [place] % (Auto) (2-11) % Eos % (Auto) (0-4) % Baso % (Auto) (0-2) % Lymph # (Auto) (1.2-4.9) X10*3/uL [place] # (Auto) (0.1-1.2) X10*3/uL Eos # (Auto) (0.0-0.4) X10*3/uL Baso # (Auto) (0.0-0.2) X10*3/uL Abs Immat Gran (auto) (0.00-0.03) X10*3/uL Absolute Neuts (auto) (2.0-8.3) X10*3/uL Absolute Nucleated RBC (0.0-0.012) X10*3/uL Nucleated RBC % (auto) (0.0-0.2) /100WBC Hold Blue Top Sodium 130 L (135-145) mmol/L Potassium 5.4 H D (3.3-5.1) mmol/l Chloride 90 L (96-108) mmol/L Carbon Dioxide 10 L* D (22-29) mmol/L Anion Gap 35 H (12-20) BUN 18 H (9-16) mg/dL Creatinine 1.78 H (0.5-1.4) mg/dL Estim Creat Clear Calc 47.4 Estimated GFR 40 POC Glucose 332 H (60-115) mg/dL Random Glucose 381 H* (60-115) mg/dL Lactic Acid (0.5-2.0) mmol/L Calcium 8.5 D (8.4-10.2) mg/dL Total Bilirubin 0.4 (0.0-1.0) mg/dL AST 29 D (5-37) U/L ALT 11 (0-40) U/L Alkaline Phosphatase 69 (39-117) U/L Total Protein 7.9 (6.5-8.0) g/dL Albumin 4.1 (3.5-5.0) g/dL Lipase 17 (8-78) U/L Ethyl Alcohol mg/dL Acetone, Qual Moderate H (Negative) 04/26/20 Range/Units 22:31 WBC (4.8-10.8) X10*3/uL RBC (4.60-5.80) X10*6/uL Hgb (14.0-18.0) g/dl Hct (42-52) % MCV (80-98) fL MCH (27.0-33.0) pg MCHC (31.0-36.0) g/dl RDW (11.0-16.0) % Plt Count (160-400) X10*3/uL MPV (9.4-12.4) fL Immature Gran % (Auto) (0.0-0.4) % Neut % (Auto) (45-73) % Lymph % (Auto) (20-40) % [place] % (Auto) (2-11) % Eos % (Auto) (0-4) % Baso % (Auto) (0-2) % Lymph # (Auto) (1.2-4.9) X10*3/uL [place] # (Auto) (0.1-1.2) X10*3/uL Eos # (Auto) (0.0-0.4) X10*3/uL Baso # (Auto) (0.0-0.2) X10*3/uL Abs Immat Gran (auto) (0.00-0.03) X10*3/uL Absolute Neuts (auto) (2.0-8.3) X10*3/uL Absolute Nucleated RBC (0.0-0.012) X10*3/uL Nucleated RBC % (auto) (0.0-0.2) /100WBC Hold Blue Top Sodium (135-145) mmol/L Potassium (3.3-5.1) mmol/l Chloride (96-108) mmol/L Carbon Dioxide (22-29) mmol/L Anion Gap (12-20) BUN (9-16) mg/dL Creatinine (0.5-1.4) mg/dL Estim Creat Clear Calc Estimated GFR POC Glucose (60-115) mg/dL Random Glucose (60-115) mg/dL Lactic Acid 3.0 H* (0.5-2.0) mmol/L Calcium (8.4-10.2) mg/dL Total Bilirubin (0.0-1.0) mg/dL AST (5-37) U/L ALT (0-40) U/L Alkaline Phosphatase (39-117) U/L Total Protein (6.5-8.0) g/dL Albumin (3.5-5.0) g/dL Lipase (8-78) U/L Ethyl Alcohol mg/dL Acetone, Qual (Negative) Discharge Plan Discharge Clinical Impression: DKA (diabetic ketoacidoses), COVID-19, TISH (acute kidney injury) Patient Disposition: Admitted As Inpatient
[2020-04-26 22:14] LABS: Acetone, serum QL Moderate (Negative)
[2020-04-26 22:23] LABS: Lipase 17 U/L (8-78)
[2020-04-26] MEDS: Famotidine/PF 20 MG/2 ML VIAL IVPUSH (22:27)
[2020-04-26] MEDS: Lidocaine HCl Viscous 2 % 15 ML SOLUTION 10 ML MUCOUS MEM (22:27)
[2020-04-26] MEDS: Magnesium Hydrox/Alum Hydrox 30 ML ORAL.SUSP PO (22:28)
[2020-04-26 22:32] VITALS: BP 149/99; PULSE 88; RESP 20; O2SAT 96
--- NOTE | 2020-04-26 22:32 | PC.NURSE ---
Pt medicated per JUN. manufacturing process technician at bedside to obtain BCX and lactic. Pt provided with a urinal to obtain urine sample, pt states he is unable to urinate at this time. VSS. Continue to monitor.
[2020-04-26 22:34] LABS: Alanine Aminotransferase 11 U/L (0-40); Albumin Level 4.1 g/dL (3.5-5.0); Alkaline Phosphatase 69 U/L (39-117); Anion Gap 35 (12-20); Aspartate Amino Transferase 29 U/L (5-37); Bilirubin Total 0.4 mg/dL (0.0-1.0); Blood Urea Nitrogen 18 mg/dL (9-16); Calcium 8.5 mg/dL (8.4-10.2); Carbon Dioxide 10 mmol/L (22-29); Chloride 90 mmol/L (96-108); Creatinine Clr Calc Pharmacy 47.4; Estimated Glomerular Filt Rate 40; Glucose Random 381 mg/dL (60-115); Potassium 5.4 mmol/l (3.3-5.1); Sodium 130 mmol/L (135-145); Total Protein 7.9 g/dL (6.5-8.0)
[2020-04-26] MEDS: Insulin Lispro 100 UNIT/ML 3 ML VIAL 7 UNIT SUBCUT (23:04)
--- NOTE | 2020-04-26 23:38 | PC.NURSE ---
Hospitalist and ED techs at bedside discussingg
--- NOTE | 2020-04-26 23:39 | PC.NURSE ---
Hospitalist at bedside discussing plan for admission. ED techs at bedside to obtain POC and ordered labs.
[2020-04-26 23:44] LABS: Glucose, Whole Blood 314 mg/dL (60-115)
--- NOTE | 2020-04-26 23:45 | PM.CCHP ---
History of Present Illness Date of Service: 04/26/20 Chief Complaint: DKA Mr. Rojo is a 54-year-old male with a past medical history of insulin-dependent diabetes, ETOH abuse and crack cocaine use who was just discharged from this hospital yesterday afternoon after being treated for DKA, nausea and vomiting as well as an TISH, both secondary to COVID-19. He tested positive for COVID-19 on 04/23/2020 when he was admitted to this hospital and discharged on 04/25/2020. He presented via EMS to the emergency room earlier this evening c/o fatigue and multiple episodes of nausea and vomiting. non bloody but pt states it did look like coffee grounds. Is complaining of chest discomfort and burning but denies chest pain or shortness of breath. He denies abdominal pain, fevers, cough or congestion. Upon my exam, patient was breathing easily satting at 97% on RA, vital signs were stable, he appeared fatigued, he is requesting ?something to help me sleep?. He states he took his insulin after he was discharged yesterday afternoon but cannot recall exactly when or how much or which kind of insulin. Labs revealed in the 300s, bicarb 10 and a gap 35, BUN 18, sCr 1.78 (unknown baseline), Hb 15 as well as moderate level of acetone. Patient was given 3 L of normal saline, 8U insulin and placed on an insulin drip in the ED. lactic acid is elevated at 3 but does not appear to be sepsis related. Patient will be transferred to the ICU for management of his DKA. Review of Systems Review of Systems: Yes all other systems are reviewed and are negative PMFSH Past Medical History Medical History Diabetes Substance abuse Social History Social History Household Members: None Housing: Apartment Do you presently have visiting nurse or other home services: No Smoking Status: Smoker, status unknown Smoked in Last 30 Days: Yes Patient Interested in Nicotine Replacement: No Use of substances other than those prescribed or required for medical reasons: Yes Substance Use Type: Crack/Cocaine Currently Displaying Signs/Symptoms of Drug Intoxication Withdrawal: No Advance Directives: No Advance Directives Information Provided: No Do you have thoughts of harming others: None Do you have a plan to hurt others: No Plan service: No Current occupational status: unemployed Meds Allergies Allergy/AdvReac Type Severity Reaction Status Date / Time No Known Allergies Allergy Unverified 04/24/20 08:19 [No Known Allergies*] Home Medications Medication Instructions Recorded Confirmed Type Jardiance 10 mg PO DAILY 04/25/20 04/27/20 History Lantus U-100 Insulin 20 unit SUBCUT BEDTIME 04/25/20 04/27/20 History cholecalciferol (vitamin D3) 25 mcg PO DAILY 04/25/20 04/27/20 History [Vitamin D3] gabapentin 300 mg PO BID 04/25/20 04/27/20 History insulin lispro [Humalog KwikPen 0 unit SUBCUT TID 04/25/20 04/27/20 History Insulin] lisinopril 5 mg PO DAILY 04/25/20 04/27/20 History metformin 1,000 mg PO BID 04/25/20 04/27/20 History Physical Exam Vital Signs: Vital Signs: Last Vital Signs Temp 99.4 F 04/26/20 20:02 Pulse 88 04/26/20 22:32 Resp 20 04/26/20 22:32 BP 149/99 H 04/26/20 22:32 Pulse Ox 96 04/26/20 22:32 Body Mass Index 25.1 Const: General: cooperative, no acute distress, well developed and tired appearing Orientation/consciousness: patient oriented x3 Limitations: no limitations HENMT: Head: Yes normal to inspection Eyes: General: appearance normal, both eyes and all related structures Neck: Neck: Yes normal visual inspection and Yes full ROM Resp: Effort & Inspection: normal respiratory effort and able to speak in complete sentences Auscultation: clear to auscultation bilaterally Cardio: Rate: regular rate Rhythm: regular rhythm Heart sounds: normal S1 and S2 GI: Inspection: Yes normal to inspection Palpation (GI): Soft to palpation and nontender Skin: General skin exam: no rashes or lesions noted Neuro: General: patient oriented x3 Extrem: General: Yes normal to inspection Results Labs CBC and Chem 7: 04/27/20 06:18 04/27/20 21:10 Labs: Laboratory Results - last 24 hr 04/26/20 04/26/20 04/26/20 20:32 20:32 20:33 MCV 88.0 MCH 30.1 MCHC 34.2 RDW 12.4 Plt Count 232 D MPV 10.6 Immature Gran % (Auto) 0.6 H Neut % (Auto) 81.6 H Lymph % (Auto) 13.3 L [place] % (Auto) 4.4 Eos % (Auto) 0.0 Baso % (Auto) 0.1 Lymph # (Auto) 1.1 L [place] # (Auto) 0.4 Eos # (Auto) 0.0 Baso # (Auto) 0.0 Abs Immat Gran (auto) 0.05 H Absolute Neuts (auto) 6.8 Absolute Nucleated RBC 0.000 Nucleated RBC % (auto) 0.0 Hold Blue Top SEE NOTE Anion Gap Estim Creat Clear Calc Estimated GFR POC Glucose Random Glucose Lactic Acid Calcium Total Bilirubin AST ALT Alkaline Phosphatase Total Protein Albumin Lipase Ethyl Alcohol < 10 Acetone, Qual 04/26/20 04/26/20 04/26/20 21:40 21:48 21:53 MCV MCH MCHC RDW Plt Count MPV Immature Gran % (Auto) Neut % (Auto) Lymph % (Auto) [place] % (Auto) Eos % (Auto) Baso % (Auto) Lymph # (Auto) [place] # (Auto) Eos # (Auto) Baso # (Auto) Abs Immat Gran (auto) Absolute Neuts (auto) Absolute Nucleated RBC Nucleated RBC % (auto) Hold Blue Top Anion Gap 35 H Estim Creat Clear Calc 47.4 Estimated GFR 40 POC Glucose 332 H Random Glucose 381 H* Lactic Acid Calcium 8.5 D Total Bilirubin 0.4 AST 29 D ALT 11 Alkaline Phosphatase 69 Total Protein 7.9 Albumin 4.1 Lipase 17 Ethyl Alcohol Acetone, Qual Moderate H 04/26/20 04/26/20 22:31 23:38 MCV MCH MCHC RDW Plt Count MPV Immature Gran % (Auto) Neut % (Auto) Lymph % (Auto) [place] % (Auto) Eos % (Auto) Baso % (Auto) Lymph # (Auto) [place] # (Auto) Eos # (Auto) Baso # (Auto) Abs Immat Gran (auto) Absolute Neuts (auto) Absolute Nucleated RBC Nucleated RBC % (auto) Hold Blue Top Anion Gap Estim Creat Clear Calc Estimated GFR POC Glucose 314 H Random Glucose Lactic Acid 3.0 H* Calcium Total Bilirubin AST ALT Alkaline Phosphatase Total Protein Albumin Lipase Ethyl Alcohol Acetone, Qual Imaging Radiologist's Impressions: Impressions Chest X-Ray 04/26/20 21:57 IMPRESSION: Bilateral multifocal airspace opacities which have worsened since prior chest x-ray 04/24/2020. Assessment and Plan (1) DKA (diabetic ketoacidoses): Status: Acute VBG not resulted. Continue insulin drip and fluids, POC hourly, correct using ISS. Monitor chemistries, once gap is closed, transition to Lantus and Humalog subcu. (2) TISH (acute kidney injury): Status: Acute Rehydrate, avoid nephrotoxic drugs and follow renal indices. (3) COVID-19: Problem details: nausea & vomiting Status: Acute Patient given a GI cocktail in the emergency department. Manage patient's nausea, is tolerating clear liquids. Monitor H&H Critical Care Time Critical Care Time (minutes): 60
[2020-04-26 23:47] VITALS: BP 154/78; PULSE 85; RESP 19; O2SAT 98
[2020-04-26 23:54] LABS: MANUAL DIFF FLAG NO
[2020-04-26 23:55] LABS: Basophils Percent Auto 0.1 % (0-2); Hematocrit 42.3 % (42-52); Hemoglobin 14.2 g/dl (14.0-18.0); Imm Gran Abs Auto 0.06 X10*3/uL (0.00-0.03); Imm Gran Pct Auto 0.6 % (0.0-0.4); Lymphocytes Absolute Auto 0.8 X10*3/uL (1.2-4.9); Lymphocytes Percent Auto 7.7 % (20-40); Mean Corpuscular HGB Conc 33.6 g/dl (31.0-36.0); Mean Corpuscular Hemoglobin 29.8 pg (27.0-33.0); Mean Corpuscular Volume 88.9 fL (80-98); Mean Platelet Volume 10.6 fL (9.4-12.4); Monocytes Absolute Auto 0.4 X10*3/uL (0.1-1.2); Monocytes Percent Auto 3.3 % (2-11); Neutrophils Absolute Auto 9.5 X10*3/uL (2.0-8.3); Neutrophils Percent Auto 88.3 % (45-73); Platelet Count 204 X10*3/uL (160-400); Red Blood Count 4.76 X10*6/uL (4.60-5.80); Red Cell Distribution Width 12.4 % (11.0-16.0); White Blood Count 10.7 X10*3/uL (4.8-10.8)
[2020-04-26] MEDS: Insulin Regular/NS 100 UNIT/100 ML PLAST..BAG IVCONT (23:57)
[2020-04-26 23:59] VITALS: BP 163/98; PULSE 92; RESP 14; TEMP 36.8; O2SAT 99
[2020-04-27] VITALS (23 sets, daily range): BP systolic 102–132; BP diastolic 58–85; PULSE 64–87; RESP 13–25; TEMP 35.9–37.2; O2SAT 96–99; BMI 22.8
--- NOTE | 2020-04-27 | ECG_ITS ---
Test Reason : CHEST PAIN Blood Pressure : / mmHG Vent. Rate : 062 BPM Atrial Rate : 062 BPM P-R Int : 128 ms QRS Dur : 082 ms QT Int : 404 ms P-R-T Axes : 044 013 020 degrees QTc Int : 410 ms Normal sinus rhythm Normal ECG When compared with ECG of 26-APR-2020 21:36, Nonspecific T wave abnormality now evident in Inferior leads Referred By: Anna Marc Electronically Signed By:HEIDI FOSTER
--- NOTE | 2020-04-27 | XR_ITS ---
EXAMINATION: XR CHEST CLINICAL INFORMATION: Chest pain. Covid positive. COMPARISON: Chest x-ray 04/26/2020 TECHNIQUE: Frontal portable view of the chest was obtained. 8:36 PM FINDINGS: Previously noted patchy airspace opacities at left lung base have shown mild improvement since prior chest x-ray 04/26/2019. The subtle peripheral opacities in the right midlung no prior chest x-ray are not apparent on today's exam. No new airspace opacities. No pleural effusion. Heart size is normal. Cardiac mediastinal contours are normal. No pulmonary vascular congestion. XR/XR chest 1V IMPRESSION: Mild improvement of the patchy airspace opacity left lung base. Resolution of airspace opacities right midlung. No new airspace disease.
[2020-04-27 00:11] LABS: Glucose Urine UA 500 MG/DL (NEG); Leukocyte Esterase Urine NEG (NEG); Nitrite Urine NEG (NEG); PH 5.5 (5.0-8.0); Specific Gravity - Urine >= 1.030 (1.005-1.025); Urine Blood NEG (NEG); Urine Ketones >=80 MG/DL (NEG); Urine Protein NEG (NEG-TRACE)
[2020-04-27 00:12] LABS: Appearance Urine CLEAR; Color Urine YELLOW; UACC Culture Trigger NO
--- NOTE | 2020-04-27 00:15 | PC.NURSE ---
POC noted to be 314 mg/dl, per MD to begin insulin infusion at 2 units/hour. VSS. Continue to monitor.
--- NOTE | 2020-04-27 00:20 | PC.NURSE ---
Med Rec completed by this RN, pt noncompliant with his medications, unsure when he last took any including insulin.
[2020-04-27] MEDS: 0.9 % Sodium Chloride 1,000 ML 999 ML IV (00:24)
[2020-04-27] MEDS: hydrOXYzine HCL 50 MG TABLET PO (00:32)
[2020-04-27 00:37] LABS: Anion Gap 33 (12-20); Blood Urea Nitrogen 17 mg/dL (9-16); Carbon Dioxide 8 mmol/L (22-29); Chloride 96 mmol/L (96-108); Creatinine Clr Calc Pharmacy 59.8; Estimated Glomerular Filt Rate 52; Glucose Random 350 mg/dL (60-115); Influenza A PCR NEGATIVE (Negative); Influenza B PCR NEGATIVE (Negative); Potassium 4.4 mmol/l (3.3-5.1); Resp Syncy Virus RNA Qual PCR NEGATIVE (Negative); Sodium 133 mmol/L (135-145)
[2020-04-27 00:46] LABS: Reflex Lactate? Lactic Acid Added
[2020-04-27 00:46] LABS: Amphetamine Screen Urine Not Detected (Not Detect); Barbiturates, Urine Not Detected (Not Detect); Benzodiazepines Screen Urine Not Detected (Not Detect); Cannabinoid Screen Urine Not Detected (Not Detect); Cocaine Screen Urine Not Detected (Not Detect); Opiate Screen Urine Not Detected (Not Detect); Phencyclidine Screen Urine Not Detected (Not Detect)
[2020-04-27 00:54] LABS: HCO3 VBG 9 mmol/L; PCO2 VBG 23 mmHg; PO2 VBG 68 mmHg
[2020-04-27 00:55] LABS: Base Excess VBG -16.6 mmol/L
[2020-04-27 00:58] LABS: SARS COV2 PCR INHOUSE POSITIVE (Negative)
--- NOTE | 2020-04-27 01:00 | PC.NURSE ---
Per PA Ester, P to increase insulin to 3 units/hr and then follow insulin protocol from there.
[2020-04-27 01:02] LABS: Glucose, Whole Blood 259 mg/dL (60-115)
--- NOTE | 2020-04-27 01:30 | PC.NURSE ---
Pt sleeping in bed in NAD. POC 222 mg/dl. Per protocol, insulin drip increased by 1 unit/hr to 4 units/hr. VSS.
[2020-04-27 01:39] LABS: Glucose, Whole Blood 222 mg/dL (60-115)
--- NOTE | 2020-04-27 01:52 | PC.NURSE ---
lab tech at bedside to obtain repeat Lactic.
[2020-04-27] MEDS: 0.9 % Sodium Chloride 1,000 ML 150 ML IVCONT (02:04)
--- NOTE | 2020-04-27 02:04 | PC.NURSE ---
IVF infusing @ 150/hr.
--- NOTE | 2020-04-27 02:29 | PC.NURSE ---
Addendum entered by Kathy Streeter 04/27/20 02:45: Per DKA protocol, insulin infusion paused due to POC of 183. Unable to switch patient to D5 1/2 N Original Note: POC 183 units/hr. Insulin drip increased by 1 unit to 5 units/hr. Pt sleeping in bed in NAD. VSS. Continue to monitor.
[2020-04-27 02:32] LABS: Glucose, Whole Blood 183 mg/dL (60-115)
--- NOTE | 2020-04-27 02:45 | PC.NURSE ---
Per DKA protocol, insulin infusion paused due to POC of 183. Unable to switch patient to D5 1/2 NS as fluid not stocked in ED. NS continues infusing @ 150 ml/hr. Report given to SHIP YARD ELECTRICAL PERSON by Eyad HERRERA. Pt being prepared for transport to ICU.
[2020-04-27] MEDS: ondansetron HCL 4 MG/2 ML VIAL IVPUSH (03:09)
[2020-04-27 03:17] LABS: Glucose, Whole Blood 167 mg/dL (60-115)
--- NOTE | 2020-04-27 03:40 | PC.NURSE ---
ADMIT TO 261-1...AWAKE..ALERT..ORIENTED X3...ANXIOUS...VSS...NSR..NO ECTOPY..VOMITED BILOIUS EMESIS ON ARRIVAL TO ICU...VOIDED YELLOW URINE IN URINAL...POC RXVLVOW=372....NS 0.9%150 CC/HR CHANGED TO D5 1/2NS 150 CC/HR PER ICU PA PREVIOUS INSTRUCTIONS FOR GLUCOSE <200...INSULIN DRIP CURRENTLY @ 4 UNITS/HR...TO TITRATE PER DKA NOMOGRAM PER ICU PA...PATIENT CURRENTLY DOZING..PREVIOUSLY ORIENTED TO UNIT ROUTINE/ENVIRONMENT AND OVERNIGHT PLAN OF CARE
[2020-04-27 04:04] LABS: Glucose, Whole Blood 164 mg/dL (60-115)
[2020-04-27 05:04] LABS: Glucose, Whole Blood 158 mg/dL (60-115)
[2020-04-27] MEDS: Omeprazole 40 MG CAPSULE.DR PO (05:30)
[2020-04-27 06:06] LABS: Glucose, Whole Blood 133 mg/dL (60-115)
[2020-04-27] MEDS: KCl 20 mEq in 5% Dex/0.45% Sod 20 MEQ/1,000 ML IV.SOLN 125 MEQ IVCONT ×2 (06:27→15:33)
[2020-04-27 07:00] LABS: D Dimer 683 NG/ML
[2020-04-27 07:01] LABS: Glucose, Whole Blood 156 mg/dL (60-115)
[2020-04-27 07:07] LABS: Basophils Percent Auto 0.1 % (0-2); Hematocrit 34.5 % (42-52); Hemoglobin 12.1 g/dl (14.0-18.0); Imm Gran Abs Auto 0.03 X10*3/uL (0.00-0.03); Imm Gran Pct Auto 0.4 % (0.0-0.4); Lymphocytes Absolute Auto 1.6 X10*3/uL (1.2-4.9); MANUAL DIFF FLAG SCAN; Mean Corpuscular HGB Conc 35.1 g/dl (31.0-36.0); Mean Corpuscular Hemoglobin 30.1 pg (27.0-33.0); Mean Corpuscular Volume 85.8 fL (80-98); Mean Platelet Volume 10.6 fL (9.4-12.4); Monocytes Absolute Auto 0.3 X10*3/uL (0.1-1.2); Monocytes Percent Auto 5.1 % (2-11); Neutrophils Absolute Auto 4.7 X10*3/uL (2.0-8.3); Neutrophils Percent Auto 70.4 % (45-73); Platelet Count 218 X10*3/uL (160-400); Red Blood Count 4.02 X10*6/uL (4.60-5.80); Red Cell Distribution Width 12.2 % (11.0-16.0); SCAN SMEAR FLAG 1; White Blood Count 6.7 X10*3/uL (4.8-10.8)
[2020-04-27 07:22] LABS: Anion Gap 12 (12-20); Blood Urea Nitrogen 13 mg/dL (9-16); Carbon Dioxide 19 mmol/L (22-29); Chloride 107 mmol/L (96-108); Creatinine Clr Calc Pharmacy 78.9; Estimated Glomerular Filt Rate > 60; Glucose Random 149 mg/dL (60-115); Magnesium 1.9 mg/dL (1.6-2.6); Potassium 4.1 mmol/l (3.3-5.1); Sodium 134 mmol/L (135-145)
[2020-04-27 07:24] LABS: C Reactive Protein 5.09 mg/dL (< or = 0.50); Glucose Random 148 mg/dL (60-115); Lactate Dehydrogenase 208 U/L (118-273); Magnesium 1.9 mg/dL (1.6-2.6); Phosphorus 1.5 mg/dL (2.7-4.5)
[2020-04-27 07:33] LABS: Calcium 7.4 mg/dL (8.4-10.2)
[2020-04-27 08:01] LABS: Glucose, Whole Blood 142 mg/dL (60-115)
[2020-04-27 08:05] LABS: Procalcitonin 0.18 ng/mL
[2020-04-27 08:08] LABS: SLIDE REVIEW VERIFIED
[2020-04-27 08:32] LABS: Phosphorus 1.4 mg/dL (2.7-4.5)
[2020-04-27] MEDS: 0.9 % Sodium Chloride Flush 3 ML SYRINGE IVFLUSH ×3 (08:43→23:47)
--- NOTE | 2020-04-27 08:59 | MHC.CM.PN ---
pt lives c his brother in apt. he reports being independent in his care. he denied the need for vna svcs at last visit, this continues to be the case, he may benefit from vna this visit considering he is a readmission; plan to revisit vna topic prior to dc . pt would benefit froma a care team consult for substance abuse. pt will need help c transportation home , last admission a taxi voucher was dispensed as his brother could not transport. cm to cont. to follow.
[2020-04-27 09:00] LABS: Glucose, Whole Blood 129 mg/dL (60-115)
[2020-04-27 10:03] LABS: Glucose, Whole Blood 160 mg/dL (60-115)
[2020-04-27] MEDS: Calcium Carbonate 750 MG TAB.CHEW PO (10:09)
[2020-04-27 11:01] LABS: Glucose, Whole Blood 162 mg/dL (60-115)
[2020-04-27 11:03] LABS: Anion Gap 15 (12-20); Blood Urea Nitrogen 11 mg/dL (9-16); Calcium 7.2 mg/dL (8.4-10.2); Carbon Dioxide 16 mmol/L (22-29); Chloride 106 mmol/L (96-108); Creatinine Clr Calc Pharmacy 79.9; Estimated Glomerular Filt Rate > 60; Glucose Random 156 mg/dL (60-115); Potassium 4.3 mmol/l (3.3-5.1); Sodium 133 mmol/L (135-145)
[2020-04-27 12:27] LABS: Glucose, Whole Blood 172 mg/dL (60-115)
[2020-04-27 13:14] LABS: Glucose, Whole Blood 183 mg/dL (60-115)
[2020-04-27 14:11] LABS: Glucose, Whole Blood 180 mg/dL (60-115)
--- NOTE | 2020-04-27 15:28 | PM.CCPN ---
Subjective Subjective Date of Service: 04/27/20 Interval History: A 54-year-old cocaine addict but with negative toxicology recently diagnosed COVID-19 disease but no evidence of pneumonia presenting within several days for 2nd time with diabetic ketoacidosis still has a significant negative base excess borderline anion gap serum bicarb of 16 in the face of resolving renal insufficiency with current creatinine 1.07 and therefore he still remains on an insulin drip otherwise metabolically normal Physical Exam Vital Signs: Vital Signs: Last Vital Signs Temp 98.8 F 04/27/20 12:00 Pulse 68 04/27/20 15:00 Resp 24 H 04/27/20 15:00 BP 120/79 04/27/20 15:00 Pulse Ox 98 04/27/20 15:00 Body Mass Index 22.8 Const: Other: Awake alert and nonfocal neurologically Cardiac with normal S1 and normal S2 and no neck vein distension and good bilateral carotid upstrokes Chest without adventitious sounds Abdomen benign with no organomegaly no tenderness good bowel sounds Skin is intact with no acrocyanosis Objective Data Labs CBC & Chem 7: 04/27/20 06:18 04/27/20 10:32 Labs: Laboratory Results - last 24 hr 04/26/20 04/26/20 04/26/20 20:32 20:32 20:33 WBC 8.4 RBC 5.09 D Hgb 15.3 D Hct 44.8 D MCV 88.0 MCH 30.1 MCHC 34.2 RDW 12.4 Plt Count 232 D MPV 10.6 Immature Gran % (Auto) 0.6 H Neut % (Auto) 81.6 H Lymph % (Auto) 13.3 L [place] % (Auto) 4.4 Eos % (Auto) 0.0 Baso % (Auto) 0.1 Lymph # (Auto) 1.1 L [place] # (Auto) 0.4 Eos # (Auto) 0.0 Baso # (Auto) 0.0 Abs Immat Gran (auto) 0.05 H Absolute Neuts (auto) 6.8 Absolute Nucleated RBC 0.000 Nucleated RBC % (auto) 0.0 Smear Tech's Comments D-Dimer Hold Blue Top SEE NOTE VBG pH VBG pCO2 VBG pO2 VBG HCO3 VBG O2 Saturation VBG Base Excess Sodium Potassium Chloride Carbon Dioxide Anion Gap BUN Creatinine Estim Creat Clear Calc Estimated GFR POC Glucose Random Glucose Lactic Acid Lactic Acid Fup @ 2Hr Calcium Phosphorus Magnesium Total Bilirubin AST ALT Alkaline Phosphatase Lactate Dehydrogenase Total Creatine Kinase C-Reactive Protein Total Protein Albumin Lipase Procalcitonin Urine Color Urine Appearance Urine pH Ur Specific Ensign Urine Protein Urine Glucose (UA) Urine Ketones Urine Blood Urine Nitrite Ur Leukocyte Esterase Urine Opiates Screen Ur Barbiturates Screen Ur Phencyclidine Scrn Ur Amphetamines Screen U Benzodiazepines Scrn Urine Cocaine Screen U Marijuana (THC) Screen Ethyl Alcohol < 10 Acetone, Qual Coronavirus (PCR) Influenza Type A (PCR) Influenza Type B (PCR) RSV RNA Qual (PCR) 04/26/20 04/26/20 04/26/20 21:40 21:48 21:53 WBC RBC Hgb Hct MCV MCH MCHC RDW Plt Count MPV Immature Gran % (Auto) Neut % (Auto) Lymph % (Auto) [place] % (Auto) Eos % (Auto) Baso % (Auto) Lymph # (Auto) [place] # (Auto) Eos # (Auto) Baso # (Auto) Abs Immat Gran (auto) Absolute Neuts (auto) Absolute Nucleated RBC Nucleated RBC % (auto) Smear Tech's Comments D-Dimer Hold Blue Top VBG pH VBG pCO2 VBG pO2 VBG HCO3 VBG O2 Saturation VBG Base Excess Sodium 130 L Potassium 5.4 H D Chloride 90 L Carbon Dioxide 10 L* D Anion Gap 35 H BUN 18 H Creatinine 1.78 H Estim Creat Clear Calc 47.4 Estimated GFR 40 POC Glucose 332 H Random Glucose 381 H* Lactic Acid Lactic Acid Fup @ 2Hr Calcium 8.5 D Phosphorus Magnesium Total Bilirubin 0.4 AST 29 D ALT 11 Alkaline Phosphatase 69 Lactate Dehydrogenase Total Creatine Kinase C-Reactive Protein Total Protein 7.9 Albumin 4.1 Lipase 17 Procalcitonin Urine Color Urine Appearance Urine pH Ur Specific Ensign Urine Protein Urine Glucose (UA) Urine Ketones Urine Blood Urine Nitrite Ur Leukocyte Esterase Urine Opiates Screen Ur Barbiturates Screen Ur Phencyclidine Scrn Ur Amphetamines Screen U Benzodiazepines Scrn Urine Cocaine Screen U Marijuana (THC) Screen Ethyl Alcohol Acetone, Qual Moderate H Coronavirus (PCR) Influenza Type A (PCR) Influenza Type B (PCR) RSV RNA Qual (PCR) 04/26/20 04/26/20 04/26/20 22:31 23:38 23:47 WBC RBC Hgb Hct MCV MCH MCHC RDW Plt Count MPV Immature Gran % (Auto) Neut % (Auto) Lymph % (Auto) [place] % (Auto) Eos % (Auto) Baso % (Auto) Lymph # (Auto) [place] # (Auto) Eos # (Auto) Baso # (Auto) Abs Immat Gran (auto) Absolute Neuts (auto) Absolute Nucleated RBC Nucleated RBC % (auto) Smear Tech's Comments D-Dimer Hold Blue Top VBG pH VBG pCO2 VBG pO2 VBG HCO3 VBG O2 Saturation VBG Base Excess Sodium Potassium Chloride Carbon Dioxide Anion Gap BUN Creatinine Estim Creat Clear Calc Estimated GFR POC Glucose 314 H Random Glucose Lactic Acid 3.0 H* Lactic Acid Fup @ 2Hr Calcium Phosphorus Magnesium Total Bilirubin AST ALT Alkaline Phosphatase Lactate Dehydrogenase Total Creatine Kinase C-Reactive Protein Total Protein Albumin Lipase Procalcitonin Urine Color Urine Appearance Urine pH Ur Specific Ensign Urine Protein Urine Glucose (UA) Urine Ketones Urine Blood Urine Nitrite Ur Leukocyte Esterase Urine Opiates Screen Ur Barbiturates Screen Ur Phencyclidine Scrn Ur Amphetamines Screen U Benzodiazepines Scrn Urine Cocaine Screen U Marijuana (THC) Screen Ethyl Alcohol Acetone, Qual Coronavirus (PCR) POSITIVE A Influenza Type A (PCR) NEGATIVE Influenza Type B (PCR) NEGATIVE RSV RNA Qual (PCR) NEGATIVE 04/26/20 04/26/20 04/26/20 23:47 23:47 23:47 WBC 10.7 RBC 4.76 Hgb 14.2 Hct 42.3 MCV 88.9 MCH 29.8 MCHC 33.6 RDW 12.4 Plt Count 204 MPV 10.6 Immature Gran % (Auto) 0.6 H Neut % (Auto) 88.3 H Lymph % (Auto) 7.7 L [place] % (Auto) 3.3 Eos % (Auto) 0.0 Baso % (Auto) 0.1 Lymph # (Auto) 0.8 L [place] # (Auto) 0.4 Eos # (Auto) 0.0 Baso # (Auto) 0.0 Abs Immat Gran (auto) 0.06 H Absolute Neuts (auto) 9.5 H Absolute Nucleated RBC 0.000 Nucleated RBC % (auto) 0.0 Smear Tech's Comments D-Dimer Hold Blue Top VBG pH 7.20 L* VBG pCO2 23 VBG pO2 68 VBG HCO3 9 VBG O2 Saturation 89.0 VBG Base Excess -16.6 Sodium 133 L Potassium 4.4 Chloride 96 Carbon Dioxide 8 L* Anion Gap 33 H BUN 17 H Creatinine 1.41 H Estim Creat Clear Calc 59.8 Estimated GFR 52 POC Glucose Random Glucose 350 H* Lactic Acid Lactic Acid Fup @ 2Hr Calcium 8.0 L Phosphorus Magnesium Total Bilirubin AST ALT Alkaline Phosphatase Lactate Dehydrogenase Total Creatine Kinase C-Reactive Protein Total Protein Albumin Lipase Procalcitonin Urine Color Urine Appearance Urine pH Ur Specific Ensign Urine Protein Urine Glucose (UA) Urine Ketones Urine Blood Urine Nitrite Ur Leukocyte Esterase Urine Opiates Screen Ur Barbiturates Screen Ur Phencyclidine Scrn Ur Amphetamines Screen U Benzodiazepines Scrn Urine Cocaine Screen U Marijuana (THC) Screen Ethyl Alcohol Acetone, Qual Coronavirus (PCR) Influenza Type A (PCR) Influenza Type B (PCR) RSV RNA Qual (PCR) 04/27/20 04/27/20 04/27/20 00:01 00:01 00:34 WBC RBC Hgb Hct MCV MCH MCHC RDW Plt Count MPV Immature Gran % (Auto) Neut % (Auto) Lymph % (Auto) [place] % (Auto) Eos % (Auto) Baso % (Auto) Lymph # (Auto) [place] # (Auto) Eos # (Auto) Baso # (Auto) Abs Immat Gran (auto) Absolute Neuts (auto) Absolute Nucleated RBC Nucleated RBC % (auto) Smear Tech's Comments D-Dimer Hold Blue Top VBG pH VBG pCO2 VBG pO2 VBG HCO3 VBG O2 Saturation VBG Base Excess Sodium Potassium Chloride Carbon Dioxide Anion Gap BUN Creatinine Estim Creat Clear Calc Estimated GFR POC Glucose 259 H Random Glucose Lactic Acid Lactic Acid Fup @ 2Hr Calcium Phosphorus Magnesium Total Bilirubin AST ALT Alkaline Phosphatase Lactate Dehydrogenase Total Creatine Kinase C-Reactive Protein Total Protein Albumin Lipase Procalcitonin Urine Color YELLOW Urine Appearance CLEAR Urine pH 5.5 Ur Specific Ensign >= 1.030 H Urine Protein NEG Urine Glucose (UA) 500 H Urine Ketones >=80 Urine Blood NEG Urine Nitrite NEG Ur Leukocyte Esterase NEG Urine Opiates Screen Not Detected Ur Barbiturates Screen Not Detected Ur Phencyclidine Scrn Not Detected Ur Amphetamines Screen Not Detected U Benzodiazepines Scrn Not Detected Urine Cocaine Screen Not Detected U Marijuana (THC) Screen Not Detected Ethyl Alcohol Acetone, Qual Coronavirus (PCR) Influenza Type A (PCR) Influenza Type B (PCR) RSV RNA Qual (PCR) 04/27/20 04/27/20 04/27/20 01:26 01:52 02:26 WBC RBC Hgb Hct MCV MCH MCHC RDW Plt Count MPV Immature Gran % (Auto) Neut % (Auto) Lymph % (Auto) [place] % (Auto) Eos % (Auto) Baso % (Auto) Lymph # (Auto) [place] # (Auto) Eos # (Auto) Baso # (Auto) Abs Immat Gran (auto) Absolute Neuts (auto) Absolute Nucleated RBC Nucleated RBC % (auto) Smear Tech's Comments D-Dimer Hold Blue Top VBG pH VBG pCO2 VBG pO2 VBG HCO3 VBG O2 Saturation VBG Base Excess Sodium Potassium Chloride Carbon Dioxide Anion Gap BUN Creatinine Estim Creat Clear Calc Estimated GFR POC Glucose 222 H 183 H Random Glucose Lactic Acid Lactic Acid Fup @ 2Hr 1.0 Calcium Phosphorus Magnesium Total Bilirubin AST ALT Alkaline Phosphatase Lactate Dehydrogenase Total Creatine Kinase C-Reactive Protein Total Protein Albumin Lipase Procalcitonin Urine Color Urine Appearance Urine pH Ur Specific Ensign Urine Protein Urine Glucose (UA) Urine Ketones Urine Blood Urine Nitrite Ur Leukocyte Esterase Urine Opiates Screen Ur Barbiturates Screen Ur Phencyclidine Scrn Ur Amphetamines Screen U Benzodiazepines Scrn Urine Cocaine Screen U Marijuana (THC) Screen Ethyl Alcohol Acetone, Qual Coronavirus (PCR) Influenza Type A (PCR) Influenza Type B (PCR) RSV RNA Qual (PCR) 04/27/20 04/27/20 04/27/20 03:04 04:00 05:01 WBC RBC Hgb Hct MCV MCH MCHC RDW Plt Count MPV Immature Gran % (Auto) Neut % (Auto) Lymph % (Auto) [place] % (Auto) Eos % (Auto) Baso % (Auto) Lymph # (Auto) [place] # (Auto) Eos # (Auto) Baso # (Auto) Abs Immat Gran (auto) Absolute Neuts (auto) Absolute Nucleated RBC Nucleated RBC % (auto) Smear Tech's Comments D-Dimer Hold Blue Top VBG pH VBG pCO2 VBG pO2 VBG HCO3 VBG O2 Saturation VBG Base Excess Sodium Potassium Chloride Carbon Dioxide Anion Gap BUN Creatinine Estim Creat Clear Calc Estimated GFR POC Glucose 167 H 164 H 158 H Random Glucose Lactic Acid Lactic Acid Fup @ 2Hr Calcium Phosphorus Magnesium Total Bilirubin AST ALT Alkaline Phosphatase Lactate Dehydrogenase Total Creatine Kinase C-Reactive Protein Total Protein Albumin Lipase Procalcitonin Urine Color Urine Appearance Urine pH Ur Specific Ensign Urine Protein Urine Glucose (UA) Urine Ketones Urine Blood Urine Nitrite Ur Leukocyte Esterase Urine Opiates Screen Ur Barbiturates Screen Ur Phencyclidine Scrn Ur Amphetamines Screen U Benzodiazepines Scrn Urine Cocaine Screen U Marijuana (THC) Screen Ethyl Alcohol Acetone, Qual Coronavirus (PCR) Influenza Type A (PCR) Influenza Type B (PCR) RSV RNA Qual (PCR) 04/27/20 04/27/20 04/27/20 06:02 06:18 06:18 WBC Cancelled RBC Cancelled Hgb Cancelled Hct Cancelled MCV Cancelled MCH Cancelled MCHC Cancelled RDW Cancelled Plt Count Cancelled MPV Cancelled Immature Gran % (Auto) Cancelled Neut % (Auto) Cancelled Lymph % (Auto) Cancelled [place] % (Auto) Cancelled Eos % (Auto) Cancelled Baso % (Auto) Cancelled Lymph # (Auto) Cancelled [place] # (Auto) Cancelled Eos # (Auto) Cancelled Baso # (Auto) Cancelled Abs Immat Gran (auto) Cancelled Absolute Neuts (auto) Cancelled Absolute Nucleated RBC Cancelled Nucleated RBC % (auto) Cancelled Smear Tech's Comments D-Dimer Hold Blue Top VBG pH VBG pCO2 VBG pO2 VBG HCO3 VBG O2 Saturation VBG Base Excess Sodium 134 L Potassium 4.1 Chloride 107 Carbon Dioxide 19 L Anion Gap 12 BUN 13 Creatinine 1.07 Estim Creat Clear Calc 78.9 Estimated GFR > 60 POC Glucose 133 H Random Glucose 149 H D Lactic Acid Lactic Acid Fup @ 2Hr Calcium 7.4 L D Phosphorus 1.4 L Magnesium 1.9 Total Bilirubin AST ALT Alkaline Phosphatase Lactate Dehydrogenase Total Creatine Kinase C-Reactive Protein Total Protein Albumin Lipase Procalcitonin Urine Color Urine Appearance Urine pH Ur Specific Ensign Urine Protein Urine Glucose (UA) Urine Ketones Urine Blood Urine Nitrite Ur Leukocyte Esterase Urine Opiates Screen Ur Barbiturates Screen Ur Phencyclidine Scrn Ur Amphetamines Screen U Benzodiazepines Scrn Urine Cocaine Screen U Marijuana (THC) Screen Ethyl Alcohol Acetone, Qual Coronavirus (PCR) Influenza Type A (PCR) Influenza Type B (PCR) RSV RNA Qual (PCR) 04/27/20 04/27/20 04/27/20 06:18 06:18 06:18 WBC 6.7 RBC 4.02 L Hgb 12.1 L Hct 34.5 L MCV 85.8 MCH 30.1 MCHC 35.1 RDW 12.2 Plt Count 218 MPV 10.6 Immature Gran % (Auto) 0.4 Neut % (Auto) 70.4 Lymph % (Auto) 24.0 [place] % (Auto) 5.1 Eos % (Auto) 0.0 Baso % (Auto) 0.1 Lymph # (Auto) 1.6 [place] # (Auto) 0.3 Eos # (Auto) 0.0 Baso # (Auto) 0.0 Abs Immat Gran (auto) 0.03 Absolute Neuts (auto) 4.7 Absolute Nucleated RBC 0.000 Nucleated RBC % (auto) 0.0 Smear Tech's Comments VERIFIED D-Dimer 683 Hold Blue Top VBG pH VBG pCO2 VBG pO2 VBG HCO3 VBG O2 Saturation VBG Base Excess Sodium Potassium Chloride Carbon Dioxide Anion Gap BUN Creatinine Estim Creat Clear Calc Estimated GFR POC Glucose Random Glucose 148 H Lactic Acid Lactic Acid Fup @ 2Hr Calcium Phosphorus 1.5 L Magnesium 1.9 Total Bilirubin AST ALT Alkaline Phosphatase Lactate Dehydrogenase 208 Total Creatine Kinase 28 L C-Reactive Protein 5.09 H Total Protein Albumin Lipase Procalcitonin Urine Color Urine Appearance Urine pH Ur Specific Ensign Urine Protein Urine Glucose (UA) Urine Ketones Urine Blood Urine Nitrite Ur Leukocyte Esterase Urine Opiates Screen Ur Barbiturates Screen Ur Phencyclidine Scrn Ur Amphetamines Screen U Benzodiazepines Scrn Urine Cocaine Screen U Marijuana (THC) Screen Ethyl Alcohol Acetone, Qual Coronavirus (PCR) Influenza Type A (PCR) Influenza Type B (PCR) RSV RNA Qual (PCR) 04/27/20 04/27/20 04/27/20 06:18 06:54 07:56 WBC RBC Hgb Hct MCV MCH MCHC RDW Plt Count MPV Immature Gran % (Auto) Neut % (Auto) Lymph % (Auto) [place] % (Auto) Eos % (Auto) Baso % (Auto) Lymph # (Auto) [place] # (Auto) Eos # (Auto) Baso # (Auto) Abs Immat Gran (auto) Absolute Neuts (auto) Absolute Nucleated RBC Nucleated RBC % (auto) Smear Tech's Comments D-Dimer Hold Blue Top VBG pH VBG pCO2 VBG pO2 VBG HCO3 VBG O2 Saturation VBG Base Excess Sodium Potassium Chloride Carbon Dioxide Anion Gap BUN Creatinine Estim Creat Clear Calc Estimated GFR POC Glucose 156 H 142 H Random Glucose Lactic Acid Lactic Acid Fup @ 2Hr Calcium Phosphorus Magnesium Total Bilirubin AST ALT Alkaline Phosphatase Lactate Dehydrogenase Total Creatine Kinase C-Reactive Protein Total Protein Albumin Lipase Procalcitonin 0.18 Urine Color Urine Appearance Urine pH Ur Specific Ensign Urine Protein Urine Glucose (UA) Urine Ketones Urine Blood Urine Nitrite Ur Leukocyte Esterase Urine Opiates Screen Ur Barbiturates Screen Ur Phencyclidine Scrn Ur Amphetamines Screen U Benzodiazepines Scrn Urine Cocaine Screen U Marijuana (THC) Screen Ethyl Alcohol Acetone, Qual Coronavirus (PCR) Influenza Type A (PCR) Influenza Type B (PCR) RSV RNA Qual (PCR) 04/27/20 04/27/20 04/27/20 08:57 09:58 10:32 WBC RBC Hgb Hct MCV MCH MCHC RDW Plt Count MPV Immature Gran % (Auto) Neut % (Auto) Lymph % (Auto) [place] % (Auto) Eos % (Auto) Baso % (Auto) Lymph # (Auto) [place] # (Auto) Eos # (Auto) Baso # (Auto) Abs Immat Gran (auto) Absolute Neuts (auto) Absolute Nucleated RBC Nucleated RBC % (auto) Smear Tech's Comments D-Dimer Hold Blue Top VBG pH VBG pCO2 VBG pO2 VBG HCO3 VBG O2 Saturation VBG Base Excess Sodium 133 L Potassium 4.3 Chloride 106 Carbon Dioxide 16 L Anion Gap 15 BUN 11 Creatinine 1.05 Estim Creat Clear Calc 79.9 Estimated GFR > 60 POC Glucose 129 H 160 H Random Glucose 156 H Lactic Acid Lactic Acid Fup @ 2Hr Calcium 7.2 L Phosphorus Magnesium Total Bilirubin AST ALT Alkaline Phosphatase Lactate Dehydrogenase Total Creatine Kinase C-Reactive Protein Total Protein Albumin Lipase Procalcitonin Urine Color Urine Appearance Urine pH Ur Specific Ensign Urine Protein Urine Glucose (UA) Urine Ketones Urine Blood Urine Nitrite Ur Leukocyte Esterase Urine Opiates Screen Ur Barbiturates Screen Ur Phencyclidine Scrn Ur Amphetamines Screen U Benzodiazepines Scrn Urine Cocaine Screen U Marijuana (THC) Screen Ethyl Alcohol Acetone, Qual Coronavirus (PCR) Influenza Type A (PCR) Influenza Type B (PCR) RSV RNA Qual (PCR) 04/27/20 04/27/20 04/27/20 10:58 12:08 13:11 WBC RBC Hgb Hct MCV MCH MCHC RDW Plt Count MPV Immature Gran % (Auto) Neut % (Auto) Lymph % (Auto) [place] % (Auto) Eos % (Auto) Baso % (Auto) Lymph # (Auto) [place] # (Auto) Eos # (Auto) Baso # (Auto) Abs Immat Gran (auto) Absolute Neuts (auto) Absolute Nucleated RBC Nucleated RBC % (auto) Smear Tech's Comments D-Dimer Hold Blue Top VBG pH VBG pCO2 VBG pO2 VBG HCO3 VBG O2 Saturation VBG Base Excess Sodium Potassium Chloride Carbon Dioxide Anion Gap BUN Creatinine Estim Creat Clear Calc Estimated GFR POC Glucose 162 H 172 H 183 H Random Glucose Lactic Acid Lactic Acid Fup @ 2Hr Calcium Phosphorus Magnesium Total Bilirubin AST ALT Alkaline Phosphatase Lactate Dehydrogenase Total Creatine Kinase C-Reactive Protein Total Protein Albumin Lipase Procalcitonin Urine Color Urine Appearance Urine pH Ur Specific Ensign Urine Protein Urine Glucose (UA) Urine Ketones Urine Blood Urine Nitrite Ur Leukocyte Esterase Urine Opiates Screen Ur Barbiturates Screen Ur Phencyclidine Scrn Ur Amphetamines Screen U Benzodiazepines Scrn Urine Cocaine Screen U Marijuana (THC) Screen Ethyl Alcohol Acetone, Qual Coronavirus (PCR) Influenza Type A (PCR) Influenza Type B (PCR) RSV RNA Qual (PCR) 04/27/20 14:08 WBC RBC Hgb Hct MCV MCH MCHC RDW Plt Count MPV Immature Gran % (Auto) Neut % (Auto) Lymph % (Auto) [place] % (Auto) Eos % (Auto) Baso % (Auto) Lymph # (Auto) [place] # (Auto) Eos # (Auto) Baso # (Auto) Abs Immat Gran (auto) Absolute Neuts (auto) Absolute Nucleated RBC Nucleated RBC % (auto) Smear Tech's Comments D-Dimer Hold Blue Top VBG pH VBG pCO2 VBG pO2 VBG HCO3 VBG O2 Saturation VBG Base Excess Sodium Potassium Chloride Carbon Dioxide Anion Gap BUN Creatinine Estim Creat Clear Calc Estimated GFR POC Glucose 180 H Random Glucose Lactic Acid Lactic Acid Fup @ 2Hr Calcium Phosphorus Magnesium Total Bilirubin AST ALT Alkaline Phosphatase Lactate Dehydrogenase Total Creatine Kinase C-Reactive Protein Total Protein Albumin Lipase Procalcitonin Urine Color Urine Appearance Urine pH Ur Specific Ensign Urine Protein Urine Glucose (UA) Urine Ketones Urine Blood Urine Nitrite Ur Leukocyte Esterase Urine Opiates Screen Ur Barbiturates Screen Ur Phencyclidine Scrn Ur Amphetamines Screen U Benzodiazepines Scrn Urine Cocaine Screen U Marijuana (THC) Screen Ethyl Alcohol Acetone, Qual Coronavirus (PCR) Influenza Type A (PCR) Influenza Type B (PCR) RSV RNA Qual (PCR) Progress Note: A&P Assessment and plan (1) Diabetes: Status: Acute (2) DKA (diabetic ketoacidoses): Status: Acute (3) TISH (acute kidney injury): Status: Acute (4) COVID-19: Problem details: nausea & vomiting Status: Acute Assessment and Plan: Plan is to continue the IV insulin drip and volume replacement in until serum bicarb at least exceeds 20 with normal anion gap and compensated pH at which point he can be switched to subcutaneous coverage and transferred Time Spent With Patient Time: Total time spent is greater than 50% in coordination of care (as documented) at patient's floor/unit and/or counseling patient: Total time spent with greater than 50% in coordination of care (as documented) at patient's floor/unit and/or counseling patient:: 25
[2020-04-27 15:44] LABS: Glucose, Whole Blood 196 mg/dL (60-115)
[2020-04-27 16:46] LABS: Anion Gap 16 (12-20); Blood Urea Nitrogen 8 mg/dL (9-16); Calcium 7.5 mg/dL (8.4-10.2); Carbon Dioxide 15 mmol/L (22-29); Chloride 105 mmol/L (96-108); Creatinine Clr Calc Pharmacy 84.8; Estimated Glomerular Filt Rate > 60; Glucose Random 196 mg/dL (60-115); Potassium 4.2 mmol/l (3.3-5.1); Sodium 132 mmol/L (135-145)
[2020-04-27] MEDS: Dextrose 5 % and Lactated Ring 1,000 ML 100 ML IVCONT ×2 (17:21→23:46)
[2020-04-27 17:38] LABS: Base Excess VBG -5.6 mmol/L; HCO3 VBG 18 mmol/L; PCO2 VBG 33 mmHg; PO2 VBG 52 mmHg; pH VBG 7.35 (7.32-7.43)
[2020-04-27 18:06] LABS: Glucose, Whole Blood 184 mg/dL (60-115)
[2020-04-27 18:06] LABS: Glucose, Whole Blood 180 mg/dL (60-115)
--- NOTE | 2020-04-27 18:15 | PC.NURSE ---
Pt alert and oriented x3, mostly withdrawn, laying in bed napping occasionally. POC glucose ranging 120-196, last two blood sugars 180s. Insulin rate change to 2units/hr per Shankar ESTRADA. Fluids changed to D5LR at 100ml/hr. Pt continues to have poor PO intake, does not want to eat, educated on importance, only drinking coffee. Goal is to check labs again at 1999. Anion gap is closed, however, bicarb remains low and trending down, hence changing to D5LR at 100ml/hr. VSS, NSR, nothing remarkable on physical assessment. Will continue to monitor. Bed locked and in lowest position, call sharif in reach, bed alarm on.
[2020-04-27 19:26] LABS: Glucose, Whole Blood 194 mg/dL (60-115)
[2020-04-27] MEDS: Acetaminophen 325 MG TABLET 650 MG PO (21:25)
[2020-04-27 21:40] LABS: Glucose, Whole Blood 194 mg/dL (60-115)
[2020-04-27 21:40] LABS: Glucose, Whole Blood 194 mg/dL (60-115)
[2020-04-27 21:50] LABS: Troponin-I High Sensitivity < 3.5 ng/L (<3.5-35.0)
[2020-04-27 22:00] LABS: Alanine Aminotransferase 7 U/L (0-40); Albumin Level 3.1 g/dL (3.5-5.0); Alkaline Phosphatase 57 U/L (39-117); Anion Gap 12 (12-20); Aspartate Amino Transferase 13 U/L (5-37); Bilirubin Total 0.2 mg/dL (0.0-1.0); Blood Urea Nitrogen 6 mg/dL (9-16); Calcium 7.6 mg/dL (8.4-10.2); Carbon Dioxide 20 mmol/L (22-29); Chloride 103 mmol/L (96-108); Creatinine Clr Calc Pharmacy 93.2; Estimated Glomerular Filt Rate > 60; Glucose Random 185 mg/dL (60-115); Magnesium 1.9 mg/dL (1.6-2.6); Potassium 3.8 mmol/l (3.3-5.1); Sodium 131 mmol/L (135-145); Total Protein 5.5 g/dL (6.5-8.0)
[2020-04-27 22:39] LABS: Glucose, Whole Blood 161 mg/dL (60-115)
[2020-04-27] MEDS: Insulin Regular/NS 100 UNIT/100 ML PLAST..BAG IVCONT (23:46)
[2020-04-27] MEDS: Famotidine/PF 20 MG/2 ML VIAL IVPUSH (23:47)
[2020-04-27] MEDS: Lidocaine HCl Viscous 2 % 15 ML SOLUTION 10 ML MUCOUS MEM (23:48)
[2020-04-27] MEDS: Magnesium Hydrox/Alum Hydrox 30 ML ORAL.SUSP PO (23:48)
--- NOTE | 2020-04-27 23:55 | PC.NURSE ---
assumed care at 1500. patient alert, oriented, anxious, withdrawn. Patient is somewhat fatigued. Under covid precautions, continues on insulin gtt and continues to have electrolyte imbalance and low serum bicarb. Patient was changed over to D5 LR at 100 cc/hour today. Insulin gtt turned up from 1 to 2 u/hour per MD and no changes since then. patient does complain of chest pain, sternal, stabbing in character, nonradiating, worse on inspiration, rated at 9/10, and was medicated with PRN tylenol, was also provided with education, EKG was taken and reviewed by PA as unremarkable, Patient had troponins taken and were apparently negative, and new CXR was taken and reviewed by PA. new orders for viscous lidocaine and PPI. Patient demonstrates poor diet. Continues on room air. breathing easy and regular, diminished lung sounds at bases.
[2020-04-28] VITALS (17 sets, daily range): BP systolic 98–137; BP diastolic 66–87; PULSE 56–70; RESP 14–25; TEMP 36.7–37.3; O2SAT 95–100
--- NOTE | 2020-04-28 | XR_ITS ---
EXAMINATION: XR CHEST CLINICAL INFORMATION: COVID COMPARISON: Chest radiographs 04/27/2020, 04/26/2020 TECHNIQUE: Portable upright AP view of the chest was obtained. FINDINGS: There is small groundglass opacity peripherally right middle lobe. Opacity left base retrocardiac region is improved since 04/26/2020. The heart is normal in size. The vascularity is normal. There is no effusion. The hilar and mediastinal contours and bony structures are unremarkable. XR/XR chest 1V IMPRESSION: 1. Small groundglass opacity peripherally right middle lobe. 2. Opacity left retrocardiac region improved since 04/26/2020.
[2020-04-28 01:15] LABS: Glucose, Whole Blood 145 mg/dL (60-115)
[2020-04-28 01:24] LABS: Glucose, Whole Blood 159 mg/dL (60-115)
[2020-04-28 03:14] LABS: Glucose, Whole Blood 201 mg/dL (60-115)
[2020-04-28] MEDS: Omeprazole 40 MG CAPSULE.DR PO (04:56)
[2020-04-28 05:43] LABS: Basophils Percent Auto 0.2 % (0-2); Eosinophils Percent Auto 0.2 % (0-4); Hematocrit 34.7 % (42-52); Hemoglobin 12.2 g/dl (14.0-18.0); Imm Gran Abs Auto 0.01 X10*3/uL (0.00-0.03); Imm Gran Pct Auto 0.2 % (0.0-0.4); Lymphocytes Absolute Auto 1.8 X10*3/uL (1.2-4.9); Lymphocytes Percent Auto 33.5 % (20-40); MANUAL DIFF FLAG SCAN; Mean Corpuscular HGB Conc 35.2 g/dl (31.0-36.0); Mean Corpuscular Hemoglobin 29.8 pg (27.0-33.0); Mean Corpuscular Volume 84.8 fL (80-98); Mean Platelet Volume 9.9 fL (9.4-12.4); Monocytes Absolute Auto 0.4 X10*3/uL (0.1-1.2); Monocytes Percent Auto 6.9 % (2-11); Neutrophils Absolute Auto 3.1 X10*3/uL (2.0-8.3); Platelet Count 213 X10*3/uL (160-400); Red Blood Count 4.09 X10*6/uL (4.60-5.80); Red Cell Distribution Width 12.2 % (11.0-16.0); SCAN SMEAR FLAG 1; White Blood Count 5.2 X10*3/uL (4.8-10.8)
[2020-04-28 05:46] LABS: Base Excess VBG -1.4 mmol/L; HCO3 VBG 22 mmol/L; PCO2 VBG 32 mmHg; PO2 VBG 50 mmHg; pH VBG 7.43 (7.32-7.43)
[2020-04-28 05:59] LABS: D Dimer 1903 NG/ML
[2020-04-28 06:06] LABS: SLIDE REVIEW VERIFIED
[2020-04-28 06:15] LABS: Alanine Aminotransferase 7 U/L (0-40); Alkaline Phosphatase 55 U/L (39-117); Anion Gap 12 (12-20); Aspartate Amino Transferase 11 U/L (5-37); Bilirubin Total 0.3 mg/dL (0.0-1.0); Blood Urea Nitrogen 6 mg/dL (9-16); C Reactive Protein 3.94 mg/dL (< or = 0.50); Calcium 7.8 mg/dL (8.4-10.2); Carbon Dioxide 20 mmol/L (22-29); Chloride 104 mmol/L (96-108); Creatinine Clr Calc Pharmacy 99.9; Estimated Glomerular Filt Rate > 60; Glucose Random 178 mg/dL (60-115); Lactate Dehydrogenase 187 U/L (118-273); Magnesium 1.8 mg/dL (1.6-2.6); Phosphorus 1.4 mg/dL (2.7-4.5); Potassium 3.4 mmol/l (3.3-5.1); Sodium 133 mmol/L (135-145); Total Protein 5.4 g/dL (6.5-8.0)
[2020-04-28 06:22] LABS: Glucose, Whole Blood 215 mg/dL (60-115)
[2020-04-28 06:22] LABS: Glucose, Whole Blood 184 mg/dL (60-115)
[2020-04-28 06:32] LABS: Procalcitonin 0.11 ng/mL
[2020-04-28] MEDS: 0.9 % Sodium Chloride Flush 3 ML SYRINGE IVFLUSH ×2 (07:25→23:23)
[2020-04-28 07:48] LABS: Glucose, Whole Blood 168 mg/dL (60-115)
[2020-04-28] MEDS: Dextrose 5 % and Lactated Ring 1,000 ML 100 ML IVCONT (09:06)
[2020-04-28 09:18] LABS: Glucose, Whole Blood 162 mg/dL (60-115)
[2020-04-28 10:26] LABS: Glucose, Whole Blood 154 mg/dL (60-115)
[2020-04-28 10:55] LABS: Anion Gap 11 (12-20); Blood Urea Nitrogen 5 mg/dL (9-16); Calcium 7.8 mg/dL (8.4-10.2); Carbon Dioxide 22 mmol/L (22-29); Chloride 103 mmol/L (96-108); Estimated Glomerular Filt Rate > 60; Glucose Random 163 mg/dL (60-115); Potassium 3.4 mmol/l (3.3-5.1); Sodium 133 mmol/L (135-145)
--- NOTE | 2020-04-28 11:08 | MHC.CM.PN ---
Pt has been stable in the ICU and is expected to transfer to the [facility] floor. His d/c plan is to return to home with [facility] - per notes, pt may need transportation: d/t his + COVID findings, he will not be able to take a taxi. ? chair van vs [employer] shuttle unless pt has completed his 10 day CDC COVID quarantine but the time of d/c
[2020-04-28 11:20] LABS: Glucose, Whole Blood 162 mg/dL (60-115)
--- NOTE | 2020-04-28 12:09 | PM.CCPN ---
Subjective Subjective Date of Service: 04/28/20 Interval History: 54-year-old type 1 diabetic with a recurrence within a few days of diabetic ketoacidosis finally with serum bicarb of 22 and no anion gap and now just taken off his insulin drip Renal function completely repaired metabolically normal except for very mild residual hyponatremia and hypokalemia Recently diagnosed COVID-19 positivity but no respiratory symptoms and and my interpretation of chest x-rays have been negative only presenting symptom was nausea vomiting and I believe that is the diabetic ketoacidosis rather than the COVID He is a known cocaine abuser but his toxicologies were negative Physical Exam Vital Signs: Vital Signs: Last Vital Signs Temp 98.0 F 04/28/20 04:00 Pulse 68 04/28/20 12:00 Resp 16 04/28/20 12:00 BP 112/78 04/28/20 12:00 Pulse Ox 99 04/28/20 12:00 Body Mass Index 22.8 Const: Other: Awake alert oriented and nonfocal Cardiac exam with normal S1 normal S2 no neck vein distension no gallops and good bilateral carotid upstrokes Lungs clear with no adventitious sounds Abdomen benign with no organomegaly non distended No edema and skin is intact Objective Data Labs CBC & Chem 7: 04/28/20 05:36 04/28/20 09:59 Labs: Laboratory Results - last 24 hr 04/27/20 04/27/20 04/27/20 12:08 13:11 14:08 WBC RBC Hgb Hct MCV MCH MCHC RDW Plt Count MPV Immature Gran % (Auto) Neut % (Auto) Lymph % (Auto) Monroe % (Auto) Eos % (Auto) Baso % (Auto) Lymph # (Auto) Monroe # (Auto) Eos # (Auto) Baso # (Auto) Abs Immat Gran (auto) Absolute Neuts (auto) Absolute Nucleated RBC Nucleated RBC % (auto) Smear Tech's Comments D-Dimer VBG pH VBG pCO2 VBG pO2 VBG HCO3 VBG O2 Saturation VBG Base Excess Sodium Potassium Chloride Carbon Dioxide Anion Gap BUN Creatinine Estim Creat Clear Calc Estimated GFR POC Glucose 172 H 183 H 180 H Random Glucose Lactic Acid Calcium Phosphorus Magnesium Total Bilirubin AST ALT Alkaline Phosphatase Lactate Dehydrogenase Total Creatine Kinase Troponin I High Sens C-Reactive Protein Total Protein Albumin Procalcitonin 04/27/20 04/27/20 04/27/20 15:31 16:14 17:23 WBC RBC Hgb Hct MCV MCH MCHC RDW Plt Count MPV Immature Gran % (Auto) Neut % (Auto) Lymph % (Auto) Monroe % (Auto) Eos % (Auto) Baso % (Auto) Lymph # (Auto) Monroe # (Auto) Eos # (Auto) Baso # (Auto) Abs Immat Gran (auto) Absolute Neuts (auto) Absolute Nucleated RBC Nucleated RBC % (auto) Smear Tech's Comments D-Dimer VBG pH Cancelled VBG pCO2 Cancelled VBG pO2 Cancelled VBG HCO3 Cancelled VBG O2 Saturation Cancelled VBG Base Excess Cancelled Sodium 132 L Potassium 4.2 Chloride 105 Carbon Dioxide 15 L Anion Gap 16 BUN 8 L Creatinine 0.99 Estim Creat Clear Calc 84.8 Estimated GFR > 60 POC Glucose 196 H Random Glucose 196 H Lactic Acid Calcium 7.5 L Phosphorus Magnesium Total Bilirubin AST ALT Alkaline Phosphatase Lactate Dehydrogenase Total Creatine Kinase Troponin I High Sens C-Reactive Protein Total Protein Albumin Procalcitonin 04/27/20 04/27/20 04/27/20 17:25 17:25 17:57 WBC RBC Hgb Hct MCV MCH MCHC RDW Plt Count MPV Immature Gran % (Auto) Neut % (Auto) Lymph % (Auto) Monroe % (Auto) Eos % (Auto) Baso % (Auto) Lymph # (Auto) Monroe # (Auto) Eos # (Auto) Baso # (Auto) Abs Immat Gran (auto) Absolute Neuts (auto) Absolute Nucleated RBC Nucleated RBC % (auto) Smear Tech's Comments D-Dimer VBG pH 7.35 VBG pCO2 33 VBG pO2 52 VBG HCO3 18 VBG O2 Saturation 82.0 VBG Base Excess -5.6 Sodium Potassium Chloride Carbon Dioxide Anion Gap BUN Creatinine Estim Creat Clear Calc Estimated GFR POC Glucose 180 H 184 H Random Glucose Lactic Acid Calcium Phosphorus Magnesium Total Bilirubin AST ALT Alkaline Phosphatase Lactate Dehydrogenase Total Creatine Kinase Troponin I High Sens C-Reactive Protein Total Protein Albumin Procalcitonin 04/27/20 04/27/20 04/27/20 19:15 20:17 21:10 WBC RBC Hgb Hct MCV MCH MCHC RDW Plt Count MPV Immature Gran % (Auto) Neut % (Auto) Lymph % (Auto) Monroe % (Auto) Eos % (Auto) Baso % (Auto) Lymph # (Auto) Monroe # (Auto) Eos # (Auto) Baso # (Auto) Abs Immat Gran (auto) Absolute Neuts (auto) Absolute Nucleated RBC Nucleated RBC % (auto) Smear Tech's Comments D-Dimer VBG pH VBG pCO2 VBG pO2 VBG HCO3 VBG O2 Saturation VBG Base Excess Sodium 131 L Potassium 3.8 Chloride 103 Carbon Dioxide 20 L Anion Gap 12 BUN 6 L Creatinine 0.90 Estim Creat Clear Calc 93.2 Estimated GFR > 60 POC Glucose 194 H 194 H Random Glucose 185 H Lactic Acid Calcium 7.6 L Phosphorus Magnesium 1.9 Total Bilirubin 0.2 AST 13 D ALT 7 Alkaline Phosphatase 57 Lactate Dehydrogenase Total Creatine Kinase Troponin I High Sens C-Reactive Protein Total Protein 5.5 L D Albumin 3.1 L D Procalcitonin 04/27/20 04/27/20 04/27/20 21:10 21:11 21:23 WBC RBC Hgb Hct MCV MCH MCHC RDW Plt Count MPV Immature Gran % (Auto) Neut % (Auto) Lymph % (Auto) Monroe % (Auto) Eos % (Auto) Baso % (Auto) Lymph # (Auto) Monroe # (Auto) Eos # (Auto) Baso # (Auto) Abs Immat Gran (auto) Absolute Neuts (auto) Absolute Nucleated RBC Nucleated RBC % (auto) Smear Tech's Comments D-Dimer VBG pH VBG pCO2 VBG pO2 VBG HCO3 VBG O2 Saturation VBG Base Excess Sodium Potassium Chloride Carbon Dioxide Anion Gap BUN Creatinine Estim Creat Clear Calc Estimated GFR POC Glucose 194 H Random Glucose Lactic Acid 1.0 Calcium Phosphorus Magnesium Total Bilirubin AST ALT Alkaline Phosphatase Lactate Dehydrogenase Total Creatine Kinase Troponin I High Sens < 3.5 C-Reactive Protein Total Protein Albumin Procalcitonin 04/27/20 04/27/20 04/28/20 22:34 23:56 01:19 WBC RBC Hgb Hct MCV MCH MCHC RDW Plt Count MPV Immature Gran % (Auto) Neut % (Auto) Lymph % (Auto) Monroe % (Auto) Eos % (Auto) Baso % (Auto) Lymph # (Auto) Monroe # (Auto) Eos # (Auto) Baso # (Auto) Abs Immat Gran (auto) Absolute Neuts (auto) Absolute Nucleated RBC Nucleated RBC % (auto) Smear Tech's Comments D-Dimer VBG pH VBG pCO2 VBG pO2 VBG HCO3 VBG O2 Saturation VBG Base Excess Sodium Potassium Chloride Carbon Dioxide Anion Gap BUN Creatinine Estim Creat Clear Calc Estimated GFR POC Glucose 161 H 145 H 159 H Random Glucose Lactic Acid Calcium Phosphorus Magnesium Total Bilirubin AST ALT Alkaline Phosphatase Lactate Dehydrogenase Total Creatine Kinase Troponin I High Sens C-Reactive Protein Total Protein Albumin Procalcitonin 04/28/20 04/28/20 04/28/20 03:05 04:51 05:36 WBC 5.2 RBC 4.09 L Hgb 12.2 L Hct 34.7 L MCV 84.8 MCH 29.8 MCHC 35.2 RDW 12.2 Plt Count 213 MPV 9.9 Immature Gran % (Auto) 0.2 Neut % (Auto) 59.0 Lymph % (Auto) 33.5 Monroe % (Auto) 6.9 Eos % (Auto) 0.2 Baso % (Auto) 0.2 Lymph # (Auto) 1.8 Monroe # (Auto) 0.4 Eos # (Auto) 0.0 Baso # (Auto) 0.0 Abs Immat Gran (auto) 0.01 Absolute Neuts (auto) 3.1 Absolute Nucleated RBC 0.000 Nucleated RBC % (auto) 0.0 Smear Tech's Comments VERIFIED D-Dimer VBG pH VBG pCO2 VBG pO2 VBG HCO3 VBG O2 Saturation VBG Base Excess Sodium Potassium Chloride Carbon Dioxide Anion Gap BUN Creatinine Estim Creat Clear Calc Estimated GFR POC Glucose 201 H 215 H Random Glucose Lactic Acid Calcium Phosphorus Magnesium Total Bilirubin AST ALT Alkaline Phosphatase Lactate Dehydrogenase Total Creatine Kinase Troponin I High Sens C-Reactive Protein Total Protein Albumin Procalcitonin 04/28/20 04/28/20 04/28/20 05:36 05:36 05:36 WBC RBC Hgb Hct MCV MCH MCHC RDW Plt Count MPV Immature Gran % (Auto) Neut % (Auto) Lymph % (Auto) Monroe % (Auto) Eos % (Auto) Baso % (Auto) Lymph # (Auto) Monroe # (Auto) Eos # (Auto) Baso # (Auto) Abs Immat Gran (auto) Absolute Neuts (auto) Absolute Nucleated RBC Nucleated RBC % (auto) Smear Tech's Comments D-Dimer 1903 VBG pH VBG pCO2 VBG pO2 VBG HCO3 VBG O2 Saturation VBG Base Excess Sodium 133 L Potassium 3.4 Chloride 104 Carbon Dioxide 20 L Anion Gap 12 BUN 6 L Creatinine 0.84 Estim Creat Clear Calc 99.9 Estimated GFR > 60 POC Glucose Random Glucose 178 H Lactic Acid Calcium 7.8 L Phosphorus 1.4 L Magnesium 1.8 Total Bilirubin 0.3 AST 11 ALT 7 Alkaline Phosphatase 55 Lactate Dehydrogenase 187 Total Creatine Kinase 19 L Troponin I High Sens C-Reactive Protein 3.94 H Total Protein 5.4 L Albumin 3.0 L Procalcitonin 0.11 04/28/20 04/28/20 04/28/20 05:36 06:17 07:31 WBC RBC Hgb Hct MCV MCH MCHC RDW Plt Count MPV Immature Gran % (Auto) Neut % (Auto) Lymph % (Auto) Monroe % (Auto) Eos % (Auto) Baso % (Auto) Lymph # (Auto) Monroe # (Auto) Eos # (Auto) Baso # (Auto) Abs Immat Gran (auto) Absolute Neuts (auto) Absolute Nucleated RBC Nucleated RBC % (auto) Smear Tech's Comments D-Dimer VBG pH 7.43 VBG pCO2 32 VBG pO2 50 VBG HCO3 22 VBG O2 Saturation 82.0 VBG Base Excess -1.4 Sodium Potassium Chloride Carbon Dioxide Anion Gap BUN Creatinine Estim Creat Clear Calc Estimated GFR POC Glucose 184 H 168 H Random Glucose Lactic Acid Calcium Phosphorus Magnesium Total Bilirubin AST ALT Alkaline Phosphatase Lactate Dehydrogenase Total Creatine Kinase Troponin I High Sens C-Reactive Protein Total Protein Albumin Procalcitonin 04/28/20 04/28/20 04/28/20 09:10 09:59 10:18 WBC RBC Hgb Hct MCV MCH MCHC RDW Plt Count MPV Immature Gran % (Auto) Neut % (Auto) Lymph % (Auto) Monroe % (Auto) Eos % (Auto) Baso % (Auto) Lymph # (Auto) Monroe # (Auto) Eos # (Auto) Baso # (Auto) Abs Immat Gran (auto) Absolute Neuts (auto) Absolute Nucleated RBC Nucleated RBC % (auto) Smear Tech's Comments D-Dimer VBG pH VBG pCO2 VBG pO2 VBG HCO3 VBG O2 Saturation VBG Base Excess Sodium 133 L Potassium 3.4 Chloride 103 Carbon Dioxide 22 Anion Gap 11 L BUN 5 L Creatinine 0.77 Estim Creat Clear Calc 109.0 Estimated GFR > 60 POC Glucose 162 H 154 H Random Glucose 163 H Lactic Acid Calcium 7.8 L Phosphorus Magnesium Total Bilirubin AST ALT Alkaline Phosphatase Lactate Dehydrogenase Total Creatine Kinase Troponin I High Sens C-Reactive Protein Total Protein Albumin Procalcitonin 04/28/20 11:14 WBC RBC Hgb Hct MCV MCH MCHC RDW Plt Count MPV Immature Gran % (Auto) Neut % (Auto) Lymph % (Auto) Monroe % (Auto) Eos % (Auto) Baso % (Auto) Lymph # (Auto) Monroe # (Auto) Eos # (Auto) Baso # (Auto) Abs Immat Gran (auto) Absolute Neuts (auto) Absolute Nucleated RBC Nucleated RBC % (auto) Smear Tech's Comments D-Dimer VBG pH VBG pCO2 VBG pO2 VBG HCO3 VBG O2 Saturation VBG Base Excess Sodium Potassium Chloride Carbon Dioxide Anion Gap BUN Creatinine Estim Creat Clear Calc Estimated GFR POC Glucose 162 H Random Glucose Lactic Acid Calcium Phosphorus Magnesium Total Bilirubin AST ALT Alkaline Phosphatase Lactate Dehydrogenase Total Creatine Kinase Troponin I High Sens C-Reactive Protein Total Protein Albumin Procalcitonin Microbiology Microbiology Results: Microbiology 04/26/20 22:31 Blood - Venous Blood Culture - Preliminary No growth after 24 hours. 04/26/20 22:31 Blood - Venous Blood Culture - Preliminary No growth after 24 hours. Progress Note: A&P Assessment and plan (1) Diabetes: Status: Acute (2) DKA (diabetic ketoacidoses): Status: Acute (3) TISH (acute kidney injury): Status: Acute (4) COVID-19: Problem details: nausea & vomiting Status: Acute Assessment and Plan: Plan is to maintain his plain Ringer's lactate until morning and switch him to subcutaneous Lantus as well as aggressive subcutaneous coverage Time Spent With Patient Time: Total time spent is greater than 50% in coordination of care (as documented) at patient's floor/unit and/or counseling patient: Total time spent with greater than 50% in coordination of care (as documented) at patient's floor/unit and/or counseling patient:: 25
[2020-04-28 12:21] LABS: Glucose, Whole Blood 176 mg/dL (60-115)
[2020-04-28] MEDS: Lactated Ringers 1,000 ML 80 ML IVCONT (13:02)
[2020-04-28 13:23] LABS: Glucose, Whole Blood 174 mg/dL (60-115)
[2020-04-28] MEDS: Insulin Glargine,Hum.rec.anlog 100 UNIT/ML 10 ML VIAL 15 UNIT SUBCUT (13:54)
--- NOTE | 2020-04-28 13:54 | PC.NURSE ---
Pt alert and oriented x3, denies pain, unremakable physical assessment. Vital signs stable, however, sinus bradycardia 49bpm transiently when napping throughout the shift, stable BP. Anion gap is closed at 1000 chemistry labs showed bicarb level of 22. Inuslin drip has been running at 2.5units/hr with POC glucose 150-170 since 0700. Pt will be covered with 15 units lantus. IV fluids changed to LR at 80ml/hr. Pt is eating. Urine output 500ml this shift. Plan is to transfer pt. Pt states he needs assisstance managing his diabetes when he is discharged, states living with his mother. Bed locked and in lowest position, call sharif in reach.
--- NOTE | 2020-04-28 13:55 | PC.NURSE ---
Lantus 15 units subcut given at 1400 per MD, schedulede at 1630 given early per MD, pt not to get any more lantus until tomorrow 04/29
[2020-04-28 16:18] LABS: Glucose, Whole Blood 199 mg/dL (60-115)
[2020-04-28] MEDS: Insulin Lispro 100 UNIT/ML 3 ML VIAL SUBCUT ×2 (17:02→21:08)
[2020-04-28] MEDS: Calcium Carbonate 750 MG TAB.CHEW PO (20:27)
[2020-04-28 20:35] LABS: Glucose, Whole Blood 205 mg/dL (60-115)
[2020-04-28] MEDS: Throat Lozenge, Medicated LOZENGE 1 LOZENGE MUCOUS MEM (23:25)
[2020-04-29] MEDS: Lactated Ringers 1,000 ML 80 ML IVCONT (01:58)
[2020-04-29] MEDS: Calcium Carbonate 750 MG TAB.CHEW PO (01:58)
[2020-04-29 06:00] LABS: Glucose, Whole Blood 198 mg/dL (60-115)
[2020-04-29] MEDS: Omeprazole 40 MG CAPSULE.DR PO (06:05)
[2020-04-29] MEDS: Insulin Glargine,Hum.rec.anlog 100 UNIT/ML 10 ML VIAL 15 UNIT SUBCUT (06:05)
[2020-04-29 07:44] LABS: Glucose, Whole Blood 210 mg/dL (60-115)
[2020-04-29 07:48] VITALS: BP 113/68; PULSE 60; RESP 26; TEMP 36.7; O2SAT 92
[2020-04-29] MEDS: Insulin Lispro 100 UNIT/ML 3 ML VIAL SUBCUT ×2 (07:49→11:39)
[2020-04-29 07:50] VITALS: BMI 24.1
[2020-04-29 08:30] VITALS: RESP 20
[2020-04-29] MEDS: Throat Lozenge, Medicated LOZENGE 1 LOZENGE MUCOUS MEM (10:40)
[2020-04-29 11:25] LABS: Glucose, Whole Blood 263 mg/dL (60-115)
--- NOTE | 2020-04-29 12:17 | HO.PM.IMPN ---
Subjective Subjective Date of Service: 04/29/20 Interval History: Seen in f/u for DKA and covid. Assymptomatic with covid and DKA resolved. Physical Exam Vital Signs: Vital Signs: Last Vital Signs Temp 98.0 F 04/29/20 07:48 Pulse 60 04/29/20 07:48 Resp 20 04/29/20 08:30 BP 113/68 04/29/20 07:48 Pulse Ox 92 04/29/20 07:48 Body Mass Index 24.1 Const: General: cooperative Orientation/consciousness: patient oriented x3 Resp: Effort & Inspection: normal respiratory effort Auscultation: clear to auscultation bilaterally Cardio: Rhythm: regular rhythm Heart sounds: S1 normal heart sound present and S2 normal heart sound present Skin: General skin exam: no rashes or lesions noted Neuro: General: patient oriented x3 Psych: Insight: Good insight present (Psych) Objective Data Current Medications Generic Name Dose Route Start Last Admin Trade Name Freq PRN Reason Stop Dose Admin Acetaminophen 650 mg 04/27/20 00:12 04/27/20 21:25 Acetaminophen 325 Mg Tablet PO 650 mg RQ6H PRN Administration headache Benzocaine 1 lozenge 04/28/20 19:58 04/29/20 10:40 Throat Lozenge, Medicated Lozenge MUCOUS MEM 1 lozenge Q2H PRN Administration Sore Throat Calcium Carbonate 750 mg 04/27/20 09:43 04/29/20 01:58 Calcium Carbonate 750 Mg Tab.Chew PO 750 mg Q4H PRN Administration Nausea Hydroxyzine HCl 50 mg 04/28/20 00:55 Hydroxyzine Hcl 50 Mg Tablet PO BEDTIME PRN anxiety/restlessness Insulin Glargine 15 unit 04/28/20 16:30 04/29/20 06:05 Insulin Glargine,Hum.Rec.Anlog 100 Unit/Ml 10 Ml Vial SUBCUT 15 unit BID@0630,1630 NICOLE Administration Omeprazole 40 mg 04/27/20 06:30 04/29/20 06:05 Omeprazole 40 Mg Capsule.Dr PO 40 mg DAILY@0630 NICOLE Administration Ondansetron HCl 4 mg 04/27/20 00:00 04/27/20 03:09 Ondansetron Hcl 4 Mg/2 Ml Vial IVPUSH 4 mg Q8H PRN Administration Nausea Sodium Chloride 3 ml 04/27/20 08:00 04/29/20 07:03 0.9 % Sodium Chloride Flush 3 Ml Syringe IVFLUSH Not Given QSHIFT NICOLE Sodium Chloride 1 spray 04/27/20 17:16 Sodium Chloride 0.65 % Nasal 44 Ml Sprbtl NOSTRIL-B Q1H PRN Dry Nasal Passages Labs CBC & Chem 7: 04/28/20 05:36 04/28/20 09:59 Microbiology Microbiology Results: Microbiology 04/26/20 22:31 Blood - Venous Blood Culture - Preliminary No growth after 48 hours. 04/26/20 22:31 Blood - Venous Blood Culture - Preliminary No growth after 48 hours. Assessment and Plan (1) DKA (diabetic ketoacidoses): Status: Acute (2) COVID-19: Problem details: nausea & vomiting Status: Acute (3) TISH (acute kidney injury): Status: Acute (4) Diabetes: Status: Acute Assessment and Plan: 1. DKA--resolved. DC LR, converted to Lantus at night only, Sliding scale and restart Metformin. Jardiance not on formulary 2.HTN--restart Lisinopril 3.Covid 19. No hypoxia. Hold Steroid, Remdesevir or Monoclonal antibody 4. Gen weakness--Get PT consult
[2020-04-29 12:53] VITALS: BP 113/68; PULSE 60; O2SAT 92
--- NOTE | 2020-04-29 13:12 | MHC.CM.PN ---
Met with pt to finalize d/c plans: Initial d/c plan was for a return to his brother's apt with whom he stated he resides with per CM note. Pt will require transportation. Today, the pt stated he was homeless (since 2016) and had no access to his insulin. Reviewed the original d/c plan with pt: he denied stating this and then stated he was staying with his mother taking care of her but could not return as she lives in elderly housing and has COVID also. He also notes that he stays wherever and with whoever will let him. He requested housing - when it was explained to him that we cannot arrange for permanent housing, he requested transfer to a [facility] facility. PT saw pt and found no skilled needs for services. Pt then verbalized an inability to obtain insulin. Call placed to [facility]: PCP is Dr. Lang: Pt was issued and picked up a 75 day supply of Humalog and Lantus on 03/23/[address] [facility] pharmacy. Call placed to [facility] at [phone] to inquire on homeless shelters who accept COVID + - the closest facility is located in [place] and would require a referral, a site clinician review and once approved, the [facility] would transport them. Discussed above with MD - is planning on discharging pt today as he is medically cleared. Met with pt again to review d/c plan including placement to COVID + shelters. Informed pt on discrepancies living situations and insulin. Discussed pt's lack of address since 2016 as a chronic condition and not something that could be solved during this admission. Reviewed insulin issues: Pt stated he doesn't remember where he left his insulin. Asked pt if he could use his cell phone (on bedside table) to contact the places he stayed between insulin tile picker on 03/23 until [place] [facility] [place] medications. Pt then became very upset and demanded to leave AMA. MD and security at bedside to assist pt with AMA discharge.
--- NOTE | 2020-04-29 14:21 | PC.NURSE ---
Case management discussing discharge plans with patient at bedside with this RN this afternoon. Patient became very agressive and angry towards staff. Patient demanding to leave AMA. Dr. Goss made aware and at bedside. Security made aware and at bedside. Patient alert and oriented, aware of the risks of leaving and educated on safety measures of leaving the hospital AMA. Both IVs were removed, however patient refused to sign AMA paperwork. Patient escorted out of the room by security at this time.
--- NOTE | 2020-04-29 14:35 | PM.DS ---
DS: Providers Provider Date of Service: 04/29/20 Date of admission: 04/27/20 00:00 Primary care physician: Unknown Physician DS: Diagnosis Discharge Diagnosis (1) DKA (diabetic ketoacidoses): Status: Acute (2) COVID-19: Status: Acute Problem details: nausea & vomiting (3) TISH (acute kidney injury): Status: Acute (4) Diabetes: Status: Acute DS: Medications Discharge Medications Home Medications: Home Medications Medication Instructions Recorded Confirmed Jardiance 10 mg PO DAILY 04/25/20 04/27/20 Lantus U-100 Insulin 20 unit SUBCUT BEDTIME 04/25/20 04/27/20 cholecalciferol (vitamin D3) 25 mcg PO DAILY 04/25/20 04/27/20 [Vitamin D3] gabapentin 300 mg PO BID 04/25/20 04/27/20 insulin lispro [Humalog KwikPen 0 unit SUBCUT TID 04/25/20 04/27/20 Insulin] lisinopril 5 mg PO DAILY 04/25/20 04/27/20 metformin 1,000 mg PO BID 04/25/20 04/27/20 Previous Rx's Medication Instructions Recorded blood sugar diagnostic [FreeStyle #100 ea 04/25/20 Lite Strips] DS: Summary Hospital Course Hospital Course: Patient was admitted for DKA, renal failure and covid. DKA was treated in ICU and while case management was looking into his living situation and medication. He abruptly became very angry, beligerant and wanted to leave AMA. I tried to advise him with no avail. He understood that he was responsibility for his medical condition worsening and possibly even and advised to take his medication as advised and to make sure to follow up with PCP Time Spent with Patient Time attestation: Total time spent providing and/or coordinating discharge services: Discharge coordination time: Greater than 30 minutes Physical Exam Vital Signs: Vital Signs: Last Vital Signs Temp 98.0 F 04/29/20 07:48 Pulse 60 04/29/20 12:53 Resp 20 04/29/20 08:30 BP 113/68 04/29/20 12:53 Pulse Ox 92 04/29/20 12:53 Body Mass Index 24.1 DS: Data Data Completed and Pending Labs on day of discharge: Laboratory Tests 04/26/20 04/26/20 04/26/20 20:32 20:32 20:33 WBC 8.4 RBC 5.09 D Hgb 15.3 D Hct 44.8 D MCV 88.0 MCH 30.1 MCHC 34.2 RDW 12.4 Plt Count 232 D MPV 10.6 Immature Gran % (Auto) 0.6 H Neut % (Auto) 81.6 H Lymph % (Auto) 13.3 L [place] % (Auto) 4.4 Eos % (Auto) 0.0 Baso % (Auto) 0.1 Lymph # (Auto) 1.1 L [place] # (Auto) 0.4 Eos # (Auto) 0.0 Baso # (Auto) 0.0 Abs Immat Gran (auto) 0.05 H Absolute Neuts (auto) 6.8 Absolute Nucleated RBC 0.000 Nucleated RBC % (auto) 0.0 Smear Tech's Comments D-Dimer Hold Blue Top SEE NOTE VBG pH VBG pCO2 VBG pO2 VBG HCO3 VBG O2 Saturation VBG Base Excess Sodium Potassium Chloride Carbon Dioxide Anion Gap BUN Creatinine Estim Creat Clear Calc Estimated GFR POC Glucose Random Glucose Lactic Acid Lactic Acid Fup @ 2Hr Calcium Phosphorus Magnesium Total Bilirubin AST ALT Alkaline Phosphatase Lactate Dehydrogenase Total Creatine Kinase Troponin I High Sens C-Reactive Protein Total Protein Albumin Lipase Procalcitonin Urine Color Urine Appearance Urine pH Ur Specific [place] Urine Protein Urine Glucose (UA) Urine Ketones Urine Blood Urine Nitrite Ur Leukocyte Esterase Urine Opiates Screen Ur Barbiturates Screen Ur Phencyclidine Scrn Ur Amphetamines Screen U Benzodiazepines Scrn Urine Cocaine Screen U Marijuana (THC) Screen Ethyl Alcohol < 10 Acetone, Qual Coronavirus (PCR) Influenza Type A (PCR) Influenza Type B (PCR) RSV RNA Qual (PCR) 04/26/20 04/26/20 04/26/20 21:40 21:48 21:53 WBC RBC Hgb Hct MCV MCH MCHC RDW Plt Count MPV Immature Gran % (Auto) Neut % (Auto) Lymph % (Auto) [place] % (Auto) Eos % (Auto) Baso % (Auto) Lymph # (Auto) [place] # (Auto) Eos # (Auto) Baso # (Auto) Abs Immat Gran (auto) Absolute Neuts (auto) Absolute Nucleated RBC Nucleated RBC % (auto) Smear Tech's Comments D-Dimer Hold Blue Top VBG pH VBG pCO2 VBG pO2 VBG HCO3 VBG O2 Saturation VBG Base Excess Sodium 130 L Potassium 5.4 H D Chloride 90 L Carbon Dioxide 10 L* D Anion Gap 35 H BUN 18 H Creatinine 1.78 H Estim Creat Clear Calc 47.4 Estimated GFR 40 POC Glucose 332 H Random Glucose 381 H* Lactic Acid Lactic Acid Fup @ 2Hr Calcium 8.5 D Phosphorus Magnesium Total Bilirubin 0.4 AST 29 D ALT 11 Alkaline Phosphatase 69 Lactate Dehydrogenase Total Creatine Kinase Troponin I High Sens C-Reactive Protein Total Protein 7.9 Albumin 4.1 Lipase 17 Procalcitonin Urine Color Urine Appearance Urine pH Ur Specific [place] Urine Protein Urine Glucose (UA) Urine Ketones Urine Blood Urine Nitrite Ur Leukocyte Esterase Urine Opiates Screen Ur Barbiturates Screen Ur Phencyclidine Scrn Ur Amphetamines Screen U Benzodiazepines Scrn Urine Cocaine Screen U Marijuana (THC) Screen Ethyl Alcohol Acetone, Qual Moderate H Coronavirus (PCR) Influenza Type A (PCR) Influenza Type B (PCR) RSV RNA Qual (PCR) 04/26/20 04/26/20 04/26/20 22:31 23:38 23:47 WBC RBC Hgb Hct MCV MCH MCHC RDW Plt Count MPV Immature Gran % (Auto) Neut % (Auto) Lymph % (Auto) [place] % (Auto) Eos % (Auto) Baso % (Auto) Lymph # (Auto) [place] # (Auto) Eos # (Auto) Baso # (Auto) Abs Immat Gran (auto) Absolute Neuts (auto) Absolute Nucleated RBC Nucleated RBC % (auto) Smear Tech's Comments D-Dimer Hold Blue Top VBG pH VBG pCO2 VBG pO2 VBG HCO3 VBG O2 Saturation VBG Base Excess Sodium Potassium Chloride Carbon Dioxide Anion Gap BUN Creatinine Estim Creat Clear Calc Estimated GFR POC Glucose 314 H Random Glucose Lactic Acid 3.0 H* Lactic Acid Fup @ 2Hr Calcium Phosphorus Magnesium Total Bilirubin AST ALT Alkaline Phosphatase Lactate Dehydrogenase Total Creatine Kinase Troponin I High Sens C-Reactive Protein Total Protein Albumin Lipase Procalcitonin Urine Color Urine Appearance Urine pH Ur Specific [place] Urine Protein Urine Glucose (UA) Urine Ketones Urine Blood Urine Nitrite Ur Leukocyte Esterase Urine Opiates Screen Ur Barbiturates Screen Ur Phencyclidine Scrn Ur Amphetamines Screen U Benzodiazepines Scrn Urine Cocaine Screen U Marijuana (THC) Screen Ethyl Alcohol Acetone, Qual Coronavirus (PCR) POSITIVE A Influenza Type A (PCR) NEGATIVE Influenza Type B (PCR) NEGATIVE RSV RNA Qual (PCR) NEGATIVE 04/26/20 04/26/20 04/26/20 23:47 23:47 23:47 WBC 10.7 RBC 4.76 Hgb 14.2 Hct 42.3 MCV 88.9 MCH 29.8 MCHC 33.6 RDW 12.4 Plt Count 204 MPV 10.6 Immature Gran % (Auto) 0.6 H Neut % (Auto) 88.3 H Lymph % (Auto) 7.7 L [place] % (Auto) 3.3 Eos % (Auto) 0.0 Baso % (Auto) 0.1 Lymph # (Auto) 0.8 L [place] # (Auto) 0.4 Eos # (Auto) 0.0 Baso # (Auto) 0.0 Abs Immat Gran (auto) 0.06 H Absolute Neuts (auto) 9.5 H Absolute Nucleated RBC 0.000 Nucleated RBC % (auto) 0.0 Smear Tech's Comments D-Dimer Hold Blue Top VBG pH 7.20 L* VBG pCO2 23 VBG pO2 68 VBG HCO3 9 VBG O2 Saturation 89.0 VBG Base Excess -16.6 Sodium 133 L Potassium 4.4 Chloride 96 Carbon Dioxide 8 L* Anion Gap 33 H BUN 17 H Creatinine 1.41 H Estim Creat Clear Calc 59.8 Estimated GFR 52 POC Glucose Random Glucose 350 H* Lactic Acid Lactic Acid Fup @ 2Hr Calcium 8.0 L Phosphorus Magnesium Total Bilirubin AST ALT Alkaline Phosphatase Lactate Dehydrogenase Total Creatine Kinase Troponin I High Sens C-Reactive Protein Total Protein Albumin Lipase Procalcitonin Urine Color Urine Appearance Urine pH Ur Specific [place] Urine Protein Urine Glucose (UA) Urine Ketones Urine Blood Urine Nitrite Ur Leukocyte Esterase Urine Opiates Screen Ur Barbiturates Screen Ur Phencyclidine Scrn Ur Amphetamines Screen U Benzodiazepines Scrn Urine Cocaine Screen U Marijuana (THC) Screen Ethyl Alcohol Acetone, Qual Coronavirus (PCR) Influenza Type A (PCR) Influenza Type B (PCR) RSV RNA Qual (PCR) 04/27/20 04/27/20 04/27/20 00:01 00:01 00:34 WBC RBC Hgb Hct MCV MCH MCHC RDW Plt Count MPV Immature Gran % (Auto) Neut % (Auto) Lymph % (Auto) [place] % (Auto) Eos % (Auto) Baso % (Auto) Lymph # (Auto) [place] # (Auto) Eos # (Auto) Baso # (Auto) Abs Immat Gran (auto) Absolute Neuts (auto) Absolute Nucleated RBC Nucleated RBC % (auto) Smear Tech's Comments D-Dimer Hold Blue Top VBG pH VBG pCO2 VBG pO2 VBG HCO3 VBG O2 Saturation VBG Base Excess Sodium Potassium Chloride Carbon Dioxide Anion Gap BUN Creatinine Estim Creat Clear Calc Estimated GFR POC Glucose 259 H Random Glucose Lactic Acid Lactic Acid Fup @ 2Hr Calcium Phosphorus Magnesium Total Bilirubin AST ALT Alkaline Phosphatase Lactate Dehydrogenase Total Creatine Kinase Troponin I High Sens C-Reactive Protein Total Protein Albumin Lipase Procalcitonin Urine Color YELLOW Urine Appearance CLEAR Urine pH 5.5 Ur Specific [place] >= 1.030 H Urine Protein NEG Urine Glucose (UA) 500 H Urine Ketones >=80 Urine Blood NEG Urine Nitrite NEG Ur Leukocyte Esterase NEG Urine Opiates Screen Not Detected Ur Barbiturates Screen Not Detected Ur Phencyclidine Scrn Not Detected Ur Amphetamines Screen Not Detected U Benzodiazepines Scrn Not Detected Urine Cocaine Screen Not Detected U Marijuana (THC) Screen Not Detected Ethyl Alcohol Acetone, Qual Coronavirus (PCR) Influenza Type A (PCR) Influenza Type B (PCR) RSV RNA Qual (PCR) 04/27/20 04/27/20 04/27/20 01:26 01:52 02:26 WBC RBC Hgb Hct MCV MCH MCHC RDW Plt Count MPV Immature Gran % (Auto) Neut % (Auto) Lymph % (Auto) [place] % (Auto) Eos % (Auto) Baso % (Auto) Lymph # (Auto) [place] # (Auto) Eos # (Auto) Baso # (Auto) Abs Immat Gran (auto) Absolute Neuts (auto) Absolute Nucleated RBC Nucleated RBC % (auto) Smear Tech's Comments D-Dimer Hold Blue Top VBG pH VBG pCO2 VBG pO2 VBG HCO3 VBG O2 Saturation VBG Base Excess Sodium Potassium Chloride Carbon Dioxide Anion Gap BUN Creatinine Estim Creat Clear Calc Estimated GFR POC Glucose 222 H 183 H Random Glucose Lactic Acid Lactic Acid Fup @ 2Hr 1.0 Calcium Phosphorus Magnesium Total Bilirubin AST ALT Alkaline Phosphatase Lactate Dehydrogenase Total Creatine Kinase Troponin I High Sens C-Reactive Protein Total Protein Albumin Lipase Procalcitonin Urine Color Urine Appearance Urine pH Ur Specific [place] Urine Protein Urine Glucose (UA) Urine Ketones Urine Blood Urine Nitrite Ur Leukocyte Esterase Urine Opiates Screen Ur Barbiturates Screen Ur Phencyclidine Scrn Ur Amphetamines Screen U Benzodiazepines Scrn Urine Cocaine Screen U Marijuana (THC) Screen Ethyl Alcohol Acetone, Qual Coronavirus (PCR) Influenza Type A (PCR) Influenza Type B (PCR) RSV RNA Qual (PCR) 04/27/20 04/27/20 04/27/20 03:04 04:00 05:01 WBC RBC Hgb Hct MCV MCH MCHC RDW Plt Count MPV Immature Gran % (Auto) Neut % (Auto) Lymph % (Auto) [place] % (Auto) Eos % (Auto) Baso % (Auto) Lymph # (Auto) [place] # (Auto) Eos # (Auto) Baso # (Auto) Abs Immat Gran (auto) Absolute Neuts (auto) Absolute Nucleated RBC Nucleated RBC % (auto) Smear Tech's Comments D-Dimer Hold Blue Top VBG pH VBG pCO2 VBG pO2 VBG HCO3 VBG O2 Saturation VBG Base Excess Sodium Potassium Chloride Carbon Dioxide Anion Gap BUN Creatinine Estim Creat Clear Calc Estimated GFR POC Glucose 167 H 164 H 158 H Random Glucose Lactic Acid Lactic Acid Fup @ 2Hr Calcium Phosphorus Magnesium Total Bilirubin AST ALT Alkaline Phosphatase Lactate Dehydrogenase Total Creatine Kinase Troponin I High Sens C-Reactive Protein Total Protein Albumin Lipase Procalcitonin Urine Color Urine Appearance Urine pH Ur Specific [place] Urine Protein Urine Glucose (UA) Urine Ketones Urine Blood Urine Nitrite Ur Leukocyte Esterase Urine Opiates Screen Ur Barbiturates Screen Ur Phencyclidine Scrn Ur Amphetamines Screen U Benzodiazepines Scrn Urine Cocaine Screen U Marijuana (THC) Screen Ethyl Alcohol Acetone, Qual Coronavirus (PCR) Influenza Type A (PCR) Influenza Type B (PCR) RSV RNA Qual (PCR) 04/27/20 04/27/20 04/27/20 06:02 06:18 06:18 WBC Cancelled RBC Cancelled Hgb Cancelled Hct Cancelled MCV Cancelled MCH Cancelled MCHC Cancelled RDW Cancelled Plt Count Cancelled MPV Cancelled Immature Gran % (Auto) Cancelled Neut % (Auto) Cancelled Lymph % (Auto) Cancelled [place] % (Auto) Cancelled Eos % (Auto) Cancelled Baso % (Auto) Cancelled Lymph # (Auto) Cancelled [place] # (Auto) Cancelled Eos # (Auto) Cancelled Baso # (Auto) Cancelled Abs Immat Gran (auto) Cancelled Absolute Neuts (auto) Cancelled Absolute Nucleated RBC Cancelled Nucleated RBC % (auto) Cancelled Smear Tech's Comments D-Dimer Hold Blue Top VBG pH VBG pCO2 VBG pO2 VBG HCO3 VBG O2 Saturation VBG Base Excess Sodium 134 L Potassium 4.1 Chloride 107 Carbon Dioxide 19 L Anion Gap 12 BUN 13 Creatinine 1.07 Estim Creat Clear Calc 78.9 Estimated GFR > 60 POC Glucose 133 H Random Glucose 149 H D Lactic Acid Lactic Acid Fup @ 2Hr Calcium 7.4 L D Phosphorus 1.4 L Magnesium 1.9 Total Bilirubin AST ALT Alkaline Phosphatase Lactate Dehydrogenase Total Creatine Kinase Troponin I High Sens C-Reactive Protein Total Protein Albumin Lipase Procalcitonin Urine Color Urine Appearance Urine pH Ur Specific [place] Urine Protein Urine Glucose (UA) Urine Ketones Urine Blood Urine Nitrite Ur Leukocyte Esterase Urine Opiates Screen Ur Barbiturates Screen Ur Phencyclidine Scrn Ur Amphetamines Screen U Benzodiazepines Scrn Urine Cocaine Screen U Marijuana (THC) Screen Ethyl Alcohol Acetone, Qual Coronavirus (PCR) Influenza Type A (PCR) Influenza Type B (PCR) RSV RNA Qual (PCR) 04/27/20 04/27/20 04/27/20 06:18 06:18 06:18 WBC 6.7 RBC 4.02 L Hgb 12.1 L Hct 34.5 L MCV 85.8 MCH 30.1 MCHC 35.1 RDW 12.2 Plt Count 218 MPV 10.6 Immature Gran % (Auto) 0.4 Neut % (Auto) 70.4 Lymph % (Auto) 24.0 [place] % (Auto) 5.1 Eos % (Auto) 0.0 Baso % (Auto) 0.1 Lymph # (Auto) 1.6 [place] # (Auto) 0.3 Eos # (Auto) 0.0 Baso # (Auto) 0.0 Abs Immat Gran (auto) 0.03 Absolute Neuts (auto) 4.7 Absolute Nucleated RBC 0.000 Nucleated RBC % (auto) 0.0 Smear Tech's Comments VERIFIED D-Dimer 683 Hold Blue Top VBG pH VBG pCO2 VBG pO2 VBG HCO3 VBG O2 Saturation VBG Base Excess Sodium Potassium Chloride Carbon Dioxide Anion Gap BUN Creatinine Estim Creat Clear Calc Estimated GFR POC Glucose Random Glucose 148 H Lactic Acid Lactic Acid Fup @ 2Hr Calcium Phosphorus 1.5 L Magnesium 1.9 Total Bilirubin AST ALT Alkaline Phosphatase Lactate Dehydrogenase 208 Total Creatine Kinase 28 L Troponin I High Sens C-Reactive Protein 5.09 H Total Protein Albumin Lipase Procalcitonin Urine Color Urine Appearance Urine pH Ur Specific [place] Urine Protein Urine Glucose (UA) Urine Ketones Urine Blood Urine Nitrite Ur Leukocyte Esterase Urine Opiates Screen Ur Barbiturates Screen Ur Phencyclidine Scrn Ur Amphetamines Screen U Benzodiazepines Scrn Urine Cocaine Screen U Marijuana (THC) Screen Ethyl Alcohol Acetone, Qual Coronavirus (PCR) Influenza Type A (PCR) Influenza Type B (PCR) RSV RNA Qual (PCR) 04/27/20 04/27/20 04/27/20 06:18 06:54 07:56 WBC RBC Hgb Hct MCV MCH MCHC RDW Plt Count MPV Immature Gran % (Auto) Neut % (Auto) Lymph % (Auto) [place] % (Auto) Eos % (Auto) Baso % (Auto) Lymph # (Auto) [place] # (Auto) Eos # (Auto) Baso # (Auto) Abs Immat Gran (auto) Absolute Neuts (auto) Absolute Nucleated RBC Nucleated RBC % (auto) Smear Tech's Comments D-Dimer Hold Blue Top VBG pH VBG pCO2 VBG pO2 VBG HCO3 VBG O2 Saturation VBG Base Excess Sodium Potassium Chloride Carbon Dioxide Anion Gap BUN Creatinine Estim Creat Clear Calc Estimated GFR POC Glucose 156 H 142 H Random Glucose Lactic Acid Lactic Acid Fup @ 2Hr Calcium Phosphorus Magnesium Total Bilirubin AST ALT Alkaline Phosphatase Lactate Dehydrogenase Total Creatine Kinase Troponin I High Sens C-Reactive Protein Total Protein Albumin Lipase Procalcitonin 0.18 Urine Color Urine Appearance Urine pH Ur Specific [place] Urine Protein Urine Glucose (UA) Urine Ketones Urine Blood Urine Nitrite Ur Leukocyte Esterase Urine Opiates Screen Ur Barbiturates Screen Ur Phencyclidine Scrn Ur Amphetamines Screen U Benzodiazepines Scrn Urine Cocaine Screen U Marijuana (THC) Screen Ethyl Alcohol Acetone, Qual Coronavirus (PCR) Influenza Type A (PCR) Influenza Type B (PCR) RSV RNA Qual (PCR) 04/27/20 04/27/20 04/27/20 08:57 09:58 10:32 WBC RBC Hgb Hct MCV MCH MCHC RDW Plt Count MPV Immature Gran % (Auto) Neut % (Auto) Lymph % (Auto) [place] % (Auto) Eos % (Auto) Baso % (Auto) Lymph # (Auto) [place] # (Auto) Eos # (Auto) Baso # (Auto) Abs Immat Gran (auto) Absolute Neuts (auto) Absolute Nucleated RBC Nucleated RBC % (auto) Smear Tech's Comments D-Dimer Hold Blue Top VBG pH VBG pCO2 VBG pO2 VBG HCO3 VBG O2 Saturation VBG Base Excess Sodium 133 L Potassium 4.3 Chloride 106 Carbon Dioxide 16 L Anion Gap 15 BUN 11 Creatinine 1.05 Estim Creat Clear Calc 79.9 Estimated GFR > 60 POC Glucose 129 H 160 H Random Glucose 156 H Lactic Acid Lactic Acid Fup @ 2Hr Calcium 7.2 L Phosphorus Magnesium Total Bilirubin AST ALT Alkaline Phosphatase Lactate Dehydrogenase Total Creatine Kinase Troponin I High Sens C-Reactive Protein Total Protein Albumin Lipase Procalcitonin Urine Color Urine Appearance Urine pH Ur Specific [place] Urine Protein Urine Glucose (UA) Urine Ketones Urine Blood Urine Nitrite Ur Leukocyte Esterase Urine Opiates Screen Ur Barbiturates Screen Ur Phencyclidine Scrn Ur Amphetamines Screen U Benzodiazepines Scrn Urine Cocaine Screen U Marijuana (THC) Screen Ethyl Alcohol Acetone, Qual Coronavirus (PCR) Influenza Type A (PCR) Influenza Type B (PCR) RSV RNA Qual (PCR) 04/27/20 04/27/20 04/27/20 10:58 12:08 13:11 WBC RBC Hgb Hct MCV MCH MCHC RDW Plt Count MPV Immature Gran % (Auto) Neut % (Auto) Lymph % (Auto) [place] % (Auto) Eos % (Auto) Baso % (Auto) Lymph # (Auto) [place] # (Auto) Eos # (Auto) Baso # (Auto) Abs Immat Gran (auto) Absolute Neuts (auto) Absolute Nucleated RBC Nucleated RBC % (auto) Smear Tech's Comments D-Dimer Hold Blue Top VBG pH VBG pCO2 VBG pO2 VBG HCO3 VBG O2 Saturation VBG Base Excess Sodium Potassium Chloride Carbon Dioxide Anion Gap BUN Creatinine Estim Creat Clear Calc Estimated GFR POC Glucose 162 H 172 H 183 H Random Glucose Lactic Acid Lactic Acid Fup @ 2Hr Calcium Phosphorus Magnesium Total Bilirubin AST ALT Alkaline Phosphatase Lactate Dehydrogenase Total Creatine Kinase Troponin I High Sens C-Reactive Protein Total Protein Albumin Lipase Procalcitonin Urine Color Urine Appearance Urine pH Ur Specific [place] Urine Protein Urine Glucose (UA) Urine Ketones Urine Blood Urine Nitrite Ur Leukocyte Esterase Urine Opiates Screen Ur Barbiturates Screen Ur Phencyclidine Scrn Ur Amphetamines Screen U Benzodiazepines Scrn Urine Cocaine Screen U Marijuana (THC) Screen Ethyl Alcohol Acetone, Qual Coronavirus (PCR) Influenza Type A (PCR) Influenza Type B (PCR) RSV RNA Qual (PCR) 04/27/20 04/27/20 04/27/20 14:08 15:31 16:14 WBC RBC Hgb Hct MCV MCH MCHC RDW Plt Count MPV Immature Gran % (Auto) Neut % (Auto) Lymph % (Auto) [place] % (Auto) Eos % (Auto) Baso % (Auto) Lymph # (Auto) [place] # (Auto) Eos # (Auto) Baso # (Auto) Abs Immat Gran (auto) Absolute Neuts (auto) Absolute Nucleated RBC Nucleated RBC % (auto) Smear Tech's Comments D-Dimer Hold Blue Top VBG pH VBG pCO2 VBG pO2 VBG HCO3 VBG O2 Saturation VBG Base Excess Sodium 132 L Potassium 4.2 Chloride 105 Carbon Dioxide 15 L Anion Gap 16 BUN 8 L Creatinine 0.99 Estim Creat Clear Calc 84.8 Estimated GFR > 60 POC Glucose 180 H 196 H Random Glucose 196 H Lactic Acid Lactic Acid Fup @ 2Hr Calcium 7.5 L Phosphorus Magnesium Total Bilirubin AST ALT Alkaline Phosphatase Lactate Dehydrogenase Total Creatine Kinase Troponin I High Sens C-Reactive Protein Total Protein Albumin Lipase Procalcitonin Urine Color Urine Appearance Urine pH Ur Specific [place] Urine Protein Urine Glucose (UA) Urine Ketones Urine Blood Urine Nitrite Ur Leukocyte Esterase Urine Opiates Screen Ur Barbiturates Screen Ur Phencyclidine Scrn Ur Amphetamines Screen U Benzodiazepines Scrn Urine Cocaine Screen U Marijuana (THC) Screen Ethyl Alcohol Acetone, Qual Coronavirus (PCR) Influenza Type A (PCR) Influenza Type B (PCR) RSV RNA Qual (PCR) 04/27/20 04/27/20 04/27/20 17:23 17:25 17:25 WBC RBC Hgb Hct MCV MCH MCHC RDW Plt Count MPV Immature Gran % (Auto) Neut % (Auto) Lymph % (Auto) [place] % (Auto) Eos % (Auto) Baso % (Auto) Lymph # (Auto) [place] # (Auto) Eos # (Auto) Baso # (Auto) Abs Immat Gran (auto) Absolute Neuts (auto) Absolute Nucleated RBC Nucleated RBC % (auto) Smear Tech's Comments D-Dimer Hold Blue Top VBG pH Cancelled 7.35 VBG pCO2 Cancelled 33 VBG pO2 Cancelled 52 VBG HCO3 Cancelled 18 VBG O2 Saturation Cancelled 82.0 VBG Base Excess Cancelled -5.6 Sodium Potassium Chloride Carbon Dioxide Anion Gap BUN Creatinine Estim Creat Clear Calc Estimated GFR POC Glucose 180 H Random Glucose Lactic Acid Lactic Acid Fup @ 2Hr Calcium Phosphorus Magnesium Total Bilirubin AST ALT Alkaline Phosphatase Lactate Dehydrogenase Total Creatine Kinase Troponin I High Sens C-Reactive Protein Total Protein Albumin Lipase Procalcitonin Urine Color Urine Appearance Urine pH Ur Specific [place] Urine Protein Urine Glucose (UA) Urine Ketones Urine Blood Urine Nitrite Ur Leukocyte Esterase Urine Opiates Screen Ur Barbiturates Screen Ur Phencyclidine Scrn Ur Amphetamines Screen U Benzodiazepines Scrn Urine Cocaine Screen U Marijuana (THC) Screen Ethyl Alcohol Acetone, Qual Coronavirus (PCR) Influenza Type A (PCR) Influenza Type B (PCR) RSV RNA Qual (PCR) 04/27/20 04/27/20 04/27/20 17:57 19:15 20:17 WBC RBC Hgb Hct MCV MCH MCHC RDW Plt Count MPV Immature Gran % (Auto) Neut % (Auto) Lymph % (Auto) [place] % (Auto) Eos % (Auto) Baso % (Auto) Lymph # (Auto) [place] # (Auto) Eos # (Auto) Baso # (Auto) Abs Immat Gran (auto) Absolute Neuts (auto) Absolute Nucleated RBC Nucleated RBC % (auto) Smear Tech's Comments D-Dimer Hold Blue Top VBG pH VBG pCO2 VBG pO2 VBG HCO3 VBG O2 Saturation VBG Base Excess Sodium Potassium Chloride Carbon Dioxide Anion Gap BUN Creatinine Estim Creat Clear Calc Estimated GFR POC Glucose 184 H 194 H 194 H Random Glucose Lactic Acid Lactic Acid Fup @ 2Hr Calcium Phosphorus Magnesium Total Bilirubin AST ALT Alkaline Phosphatase Lactate Dehydrogenase Total Creatine Kinase Troponin I High Sens C-Reactive Protein Total Protein Albumin Lipase Procalcitonin Urine Color Urine Appearance Urine pH Ur Specific [place] Urine Protein Urine Glucose (UA) Urine Ketones Urine Blood Urine Nitrite Ur Leukocyte Esterase Urine Opiates Screen Ur Barbiturates Screen Ur Phencyclidine Scrn Ur Amphetamines Screen U Benzodiazepines Scrn Urine Cocaine Screen U Marijuana (THC) Screen Ethyl Alcohol Acetone, Qual Coronavirus (PCR) Influenza Type A (PCR) Influenza Type B (PCR) RSV RNA Qual (PCR) 04/27/20 04/27/20 04/27/20 21:10 21:10 21:11 WBC RBC Hgb Hct MCV MCH MCHC RDW Plt Count MPV Immature Gran % (Auto) Neut % (Auto) Lymph % (Auto) [place] % (Auto) Eos % (Auto) Baso % (Auto) Lymph # (Auto) [place] # (Auto) Eos # (Auto) Baso # (Auto) Abs Immat Gran (auto) Absolute Neuts (auto) Absolute Nucleated RBC Nucleated RBC % (auto) Smear Tech's Comments D-Dimer Hold Blue Top VBG pH VBG pCO2 VBG pO2 VBG HCO3 VBG O2 Saturation VBG Base Excess Sodium 131 L Potassium 3.8 Chloride 103 Carbon Dioxide 20 L Anion Gap 12 BUN 6 L Creatinine 0.90 Estim Creat Clear Calc 93.2 Estimated GFR > 60 POC Glucose Random Glucose 185 H Lactic Acid 1.0 Lactic Acid Fup @ 2Hr Calcium 7.6 L Phosphorus Magnesium 1.9 Total Bilirubin 0.2 AST 13 D ALT 7 Alkaline Phosphatase 57 Lactate Dehydrogenase Total Creatine Kinase Troponin I High Sens < 3.5 C-Reactive Protein Total Protein 5.5 L D Albumin 3.1 L D Lipase Procalcitonin Urine Color Urine Appearance Urine pH Ur Specific [place] Urine Protein Urine Glucose (UA) Urine Ketones Urine Blood Urine Nitrite Ur Leukocyte Esterase Urine Opiates Screen Ur Barbiturates Screen Ur Phencyclidine Scrn Ur Amphetamines Screen U Benzodiazepines Scrn Urine Cocaine Screen U Marijuana (THC) Screen Ethyl Alcohol Acetone, Qual Coronavirus (PCR) Influenza Type A (PCR) Influenza Type B (PCR) RSV RNA Qual (PCR) 04/27/20 04/27/20 04/27/20 21:23 22:34 23:56 WBC RBC Hgb Hct MCV MCH MCHC RDW Plt Count MPV Immature Gran % (Auto) Neut % (Auto) Lymph % (Auto) [place] % (Auto) Eos % (Auto) Baso % (Auto) Lymph # (Auto) [place] # (Auto) Eos # (Auto) Baso # (Auto) Abs Immat Gran (auto) Absolute Neuts (auto) Absolute Nucleated RBC Nucleated RBC % (auto) Smear Tech's Comments D-Dimer Hold Blue Top VBG pH VBG pCO2 VBG pO2 VBG HCO3 VBG O2 Saturation VBG Base Excess Sodium Potassium Chloride Carbon Dioxide Anion Gap BUN Creatinine Estim Creat Clear Calc Estimated GFR POC Glucose 194 H 161 H 145 H Random Glucose Lactic Acid Lactic Acid Fup @ 2Hr Calcium Phosphorus Magnesium Total Bilirubin AST ALT Alkaline Phosphatase Lactate Dehydrogenase Total Creatine Kinase Troponin I High Sens C-Reactive Protein Total Protein Albumin Lipase Procalcitonin Urine Color Urine Appearance Urine pH Ur Specific [place] Urine Protein Urine Glucose (UA) Urine Ketones Urine Blood Urine Nitrite Ur Leukocyte Esterase Urine Opiates Screen Ur Barbiturates Screen Ur Phencyclidine Scrn Ur Amphetamines Screen U Benzodiazepines Scrn Urine Cocaine Screen U Marijuana (THC) Screen Ethyl Alcohol Acetone, Qual Coronavirus (PCR) Influenza Type A (PCR) Influenza Type B (PCR) RSV RNA Qual (PCR) 04/28/20 04/28/20 04/28/20 01:19 03:05 04:51 WBC RBC Hgb Hct MCV MCH MCHC RDW Plt Count MPV Immature Gran % (Auto) Neut % (Auto) Lymph % (Auto) [place] % (Auto) Eos % (Auto) Baso % (Auto) Lymph # (Auto) [place] # (Auto) Eos # (Auto) Baso # (Auto) Abs Immat Gran (auto) Absolute Neuts (auto) Absolute Nucleated RBC Nucleated RBC % (auto) Smear Tech's Comments D-Dimer Hold Blue Top VBG pH VBG pCO2 VBG pO2 VBG HCO3 VBG O2 Saturation VBG Base Excess Sodium Potassium Chloride Carbon Dioxide Anion Gap BUN Creatinine Estim Creat Clear Calc Estimated GFR POC Glucose 159 H 201 H 215 H Random Glucose Lactic Acid Lactic Acid Fup @ 2Hr Calcium Phosphorus Magnesium Total Bilirubin AST ALT Alkaline Phosphatase Lactate Dehydrogenase Total Creatine Kinase Troponin I High Sens C-Reactive Protein Total Protein Albumin Lipase Procalcitonin Urine Color Urine Appearance Urine pH Ur Specific [place] Urine Protein Urine Glucose (UA) Urine Ketones Urine Blood Urine Nitrite Ur Leukocyte Esterase Urine Opiates Screen Ur Barbiturates Screen Ur Phencyclidine Scrn Ur Amphetamines Screen U Benzodiazepines Scrn Urine Cocaine Screen U Marijuana (THC) Screen Ethyl Alcohol Acetone, Qual Coronavirus (PCR) Influenza Type A (PCR) Influenza Type B (PCR) RSV RNA Qual (PCR) 04/28/20 04/28/20 04/28/20 05:36 05:36 05:36 WBC 5.2 RBC 4.09 L Hgb 12.2 L Hct 34.7 L MCV 84.8 MCH 29.8 MCHC 35.2 RDW 12.2 Plt Count 213 MPV 9.9 Immature Gran % (Auto) 0.2 Neut % (Auto) 59.0 Lymph % (Auto) 33.5 [place] % (Auto) 6.9 Eos % (Auto) 0.2 Baso % (Auto) 0.2 Lymph # (Auto) 1.8 [place] # (Auto) 0.4 Eos # (Auto) 0.0 Baso # (Auto) 0.0 Abs Immat Gran (auto) 0.01 Absolute Neuts (auto) 3.1 Absolute Nucleated RBC 0.000 Nucleated RBC % (auto) 0.0 Smear Tech's Comments VERIFIED D-Dimer 1903 Hold Blue Top VBG pH VBG pCO2 VBG pO2 VBG HCO3 VBG O2 Saturation VBG Base Excess Sodium 133 L Potassium 3.4 Chloride 104 Carbon Dioxide 20 L Anion Gap 12 BUN 6 L Creatinine 0.84 Estim Creat Clear Calc 99.9 Estimated GFR > 60 POC Glucose Random Glucose 178 H Lactic Acid Lactic Acid Fup @ 2Hr Calcium 7.8 L Phosphorus 1.4 L Magnesium 1.8 Total Bilirubin 0.3 AST 11 ALT 7 Alkaline Phosphatase 55 Lactate Dehydrogenase 187 Total Creatine Kinase 19 L Troponin I High Sens C-Reactive Protein 3.94 H Total Protein 5.4 L Albumin 3.0 L Lipase Procalcitonin Urine Color Urine Appearance Urine pH Ur Specific [place] Urine Protein Urine Glucose (UA) Urine Ketones Urine Blood Urine Nitrite Ur Leukocyte Esterase Urine Opiates Screen Ur Barbiturates Screen Ur Phencyclidine Scrn Ur Amphetamines Screen U Benzodiazepines Scrn Urine Cocaine Screen U Marijuana (THC) Screen Ethyl Alcohol Acetone, Qual Coronavirus (PCR) Influenza Type A (PCR) Influenza Type B (PCR) RSV RNA Qual (PCR) 04/28/20 04/28/20 04/28/20 05:36 05:36 06:17 WBC RBC Hgb Hct MCV MCH MCHC RDW Plt Count MPV Immature Gran % (Auto) Neut % (Auto) Lymph % (Auto) [place] % (Auto) Eos % (Auto) Baso % (Auto) Lymph # (Auto) [place] # (Auto) Eos # (Auto) Baso # (Auto) Abs Immat Gran (auto) Absolute Neuts (auto) Absolute Nucleated RBC Nucleated RBC % (auto) Smear Tech's Comments D-Dimer Hold Blue Top VBG pH 7.43 VBG pCO2 32 VBG pO2 50 VBG HCO3 22 VBG O2 Saturation 82.0 VBG Base Excess -1.4 Sodium Potassium Chloride Carbon Dioxide Anion Gap BUN Creatinine Estim Creat Clear Calc Estimated GFR POC Glucose 184 H Random Glucose Lactic Acid Lactic Acid Fup @ 2Hr Calcium Phosphorus Magnesium Total Bilirubin AST ALT Alkaline Phosphatase Lactate Dehydrogenase Total Creatine Kinase Troponin I High Sens C-Reactive Protein Total Protein Albumin Lipase Procalcitonin 0.11 Urine Color Urine Appearance Urine pH Ur Specific [place] Urine Protein Urine Glucose (UA) Urine Ketones Urine Blood Urine Nitrite Ur Leukocyte Esterase Urine Opiates Screen Ur Barbiturates Screen Ur Phencyclidine Scrn Ur Amphetamines Screen U Benzodiazepines Scrn Urine Cocaine Screen U Marijuana (THC) Screen Ethyl Alcohol Acetone, Qual Coronavirus (PCR) Influenza Type A (PCR) Influenza Type B (PCR) RSV RNA Qual (PCR) 04/28/20 04/28/20 04/28/20 07:31 09:10 09:59 WBC RBC Hgb Hct MCV MCH MCHC RDW Plt Count MPV Immature Gran % (Auto) Neut % (Auto) Lymph % (Auto) [place] % (Auto) Eos % (Auto) Baso % (Auto) Lymph # (Auto) [place] # (Auto) Eos # (Auto) Baso # (Auto) Abs Immat Gran (auto) Absolute Neuts (auto) Absolute Nucleated RBC Nucleated RBC % (auto) Smear Tech's Comments D-Dimer Hold Blue Top VBG pH VBG pCO2 VBG pO2 VBG HCO3 VBG O2 Saturation VBG Base Excess Sodium 133 L Potassium 3.4 Chloride 103 Carbon Dioxide 22 Anion Gap 11 L BUN 5 L Creatinine 0.77 Estim Creat Clear Calc 109.0 Estimated GFR > 60 POC Glucose 168 H 162 H Random Glucose 163 H Lactic Acid Lactic Acid Fup @ 2Hr Calcium 7.8 L Phosphorus Magnesium Total Bilirubin AST ALT Alkaline Phosphatase Lactate Dehydrogenase Total Creatine Kinase Troponin I High Sens C-Reactive Protein Total Protein Albumin Lipase Procalcitonin Urine Color Urine Appearance Urine pH Ur Specific [place] Urine Protein Urine Glucose (UA) Urine Ketones Urine Blood Urine Nitrite Ur Leukocyte Esterase Urine Opiates Screen Ur Barbiturates Screen Ur Phencyclidine Scrn Ur Amphetamines Screen U Benzodiazepines Scrn Urine Cocaine Screen U Marijuana (THC) Screen Ethyl Alcohol Acetone, Qual Coronavirus (PCR) Influenza Type A (PCR) Influenza Type B (PCR) RSV RNA Qual (PCR) 04/28/20 04/28/20 04/28/20 10:18 11:14 12:17 WBC RBC Hgb Hct MCV MCH MCHC RDW Plt Count MPV Immature Gran % (Auto) Neut % (Auto) Lymph % (Auto) [place] % (Auto) Eos % (Auto) Baso % (Auto) Lymph # (Auto) [place] # (Auto) Eos # (Auto) Baso # (Auto) Abs Immat Gran (auto) Absolute Neuts (auto) Absolute Nucleated RBC Nucleated RBC % (auto) Smear Tech's Comments D-Dimer Hold Blue Top VBG pH VBG pCO2 VBG pO2 VBG HCO3 VBG O2 Saturation VBG Base Excess Sodium Potassium Chloride Carbon Dioxide Anion Gap BUN Creatinine Estim Creat Clear Calc Estimated GFR POC Glucose 154 H 162 H 176 H Random Glucose Lactic Acid Lactic Acid Fup @ 2Hr Calcium Phosphorus Magnesium Total Bilirubin AST ALT Alkaline Phosphatase Lactate Dehydrogenase Total Creatine Kinase Troponin I High Sens C-Reactive Protein Total Protein Albumin Lipase Procalcitonin Urine Color Urine Appearance Urine pH Ur Specific [place] Urine Protein Urine Glucose (UA) Urine Ketones Urine Blood Urine Nitrite Ur Leukocyte Esterase Urine Opiates Screen Ur Barbiturates Screen Ur Phencyclidine Scrn Ur Amphetamines Screen U Benzodiazepines Scrn Urine Cocaine Screen U Marijuana (THC) Screen Ethyl Alcohol Acetone, Qual Coronavirus (PCR) Influenza Type A (PCR) Influenza Type B (PCR) RSV RNA Qual (PCR) 04/28/20 04/28/20 04/28/20 13:09 15:56 20:25 WBC RBC Hgb Hct MCV MCH MCHC RDW Plt Count MPV Immature Gran % (Auto) Neut % (Auto) Lymph % (Auto) [place] % (Auto) Eos % (Auto) Baso % (Auto) Lymph # (Auto) [place] # (Auto) Eos # (Auto) Baso # (Auto) Abs Immat Gran (auto) Absolute Neuts (auto) Absolute Nucleated RBC Nucleated RBC % (auto) Smear Tech's Comments D-Dimer Hold Blue Top VBG pH VBG pCO2 VBG pO2 VBG HCO3 VBG O2 Saturation VBG Base Excess Sodium Potassium Chloride Carbon Dioxide Anion Gap BUN Creatinine Estim Creat Clear Calc Estimated GFR POC Glucose 174 H 199 H 205 H Random Glucose Lactic Acid Lactic Acid Fup @ 2Hr Calcium Phosphorus Magnesium Total Bilirubin AST ALT Alkaline Phosphatase Lactate Dehydrogenase Total Creatine Kinase Troponin I High Sens C-Reactive Protein Total Protein Albumin Lipase Procalcitonin Urine Color Urine Appearance Urine pH Ur Specific [place] Urine Protein Urine Glucose (UA) Urine Ketones Urine Blood Urine Nitrite Ur Leukocyte Esterase Urine Opiates Screen Ur Barbiturates Screen Ur Phencyclidine Scrn Ur Amphetamines Screen U Benzodiazepines Scrn Urine Cocaine Screen U Marijuana (THC) Screen Ethyl Alcohol Acetone, Qual Coronavirus (PCR) Influenza Type A (PCR) Influenza Type B (PCR) RSV RNA Qual (PCR) 04/29/20 04/29/20 04/29/20 05:56 07:19 11:14 WBC RBC Hgb Hct MCV MCH MCHC RDW Plt Count MPV Immature Gran % (Auto) Neut % (Auto) Lymph % (Auto) [place] % (Auto) Eos % (Auto) Baso % (Auto) Lymph # (Auto) [place] # (Auto) Eos # (Auto) Baso # (Auto) Abs Immat Gran (auto) Absolute Neuts (auto) Absolute Nucleated RBC Nucleated RBC % (auto) Smear Tech's Comments D-Dimer Hold Blue Top VBG pH VBG pCO2 VBG pO2 VBG HCO3 VBG O2 Saturation VBG Base Excess Sodium Potassium Chloride Carbon Dioxide Anion Gap BUN Creatinine Estim Creat Clear Calc Estimated GFR POC Glucose 198 H 210 H 263 H Random Glucose Lactic Acid Lactic Acid Fup @ 2Hr Calcium Phosphorus Magnesium Total Bilirubin AST ALT Alkaline Phosphatase Lactate Dehydrogenase Total Creatine Kinase Troponin I High Sens C-Reactive Protein Total Protein Albumin Lipase Procalcitonin Urine Color Urine Appearance Urine pH Ur Specific [place] Urine Protein Urine Glucose (UA) Urine Ketones Urine Blood Urine Nitrite Ur Leukocyte Esterase Urine Opiates Screen Ur Barbiturates Screen Ur Phencyclidine Scrn Ur Amphetamines Screen U Benzodiazepines Scrn Urine Cocaine Screen U Marijuana (THC) Screen Ethyl Alcohol Acetone, Qual Coronavirus (PCR) Influenza Type A (PCR) Influenza Type B (PCR) RSV RNA Qual (PCR) Preliminary micro results at discharge 04/26/20 22:31 Blood Culture - Preliminary Blood - Venous No growth after 48 hours. 04/26/20 22:31 Blood Culture - Preliminary Blood - Venous No growth after 48 hours. Discharge Plan Discharge Anticipated Discharge Date/Time: 04/29/20 14:32 Patient Disposition: Left Against Medical Advice Referrals: Marc Lang MD [Physician] - 1 Week (Dr. Lang 05/16/2020 10:30. Dr. Lang will call you to discuss your hospital stay.) Discharge Medications: No Action Jardiance 10 mg Tablet 10 mg PO DAILY RF: 0 lisinopril 5 mg Tablet 5 mg PO DAILY RF: 0 metformin 500 mg Tablet 1,000 mg PO BID RF: 0 gabapentin 300 mg Capsule 300 mg PO BID RF: 0 cholecalciferol (vitamin D3) [Vitamin D3] 25 mcg (1,000 unit) Tablet 25 mcg PO DAILY RF: 0 insulin lispro [Humalog KwikPen Insulin] 100 unit/mL Insulin Pen 0 unit SUBCUT TID RF: 0 Lantus U-100 Insulin 100 unit/mL Solution 20 unit SUBCUT BEDTIME RF: 0 (DME) FreeStyle Lite Strips Strip See Rx Instructions .ROUTE .MEDSUPPLY Qty: 100 RF: 0 Discharge Orders: Discharge Order (Routine); Ordered 04/29/20 Ordered By: Brendon Goss Discharge Date/Time: 04/29/20 14:20 Care Plan Goals: Left Against Medical advise Health Concerns: Left Against Medical Advise Plan of Treatment: Advise to go see his DrTerrence and to take his medication as prescribed, we verified that he had medication refil for 75 days in March
== END 2020-04-29 14:20 | disposition left against medical advice (07) | DRG 420 ==
LOC: HO.ED 22:47 → HO.ICU 04-27 02:33 → HO.ISO 04-28 13:43
PROVIDERS: Physician Assistant; Admitting Provider Internal Medicine Cardiovascular Disease; Emergency Provider Student in an Organized Health Care Education/Training Program; PCP Internal Medicine; Visit Provider Internal Medicine
DX: E10.10 Type 1 diabetes mellitus with ketoacidosis without coma (principal); U07.1 COVID-19; N17.9 Acute kidney failure, unspecified; Z79.4 Long term (current) use of insulin; Z79.899 Other long term (current) drug therapy
CPT/HCPCS: 0241U; 36415; 71045; 80048; 80053; 80307; 80320; 81003; 82009; 82550; 82803; 82947; 83605; 83615; 83690; 83735; 84100; 84145; 84484; 85025; 85379; 86140; 87040; 93005; 96361; 96365; 96375; 97110; 97116; 99285; J2405

== ENCOUNTER → 2020-08-19 08:40 | Outpatient (BNVA) | payer MEDICAID, SELFPAY | PROVIDERS: PCP Internal Medicine; Visit Provider Nurse Practitioner Gerontology | DX: E11.65 Type 2 diabetes mellitus with hyperglycemia (principal); E11.42 Type 2 diabetes mellitus with diabetic polyneuropathy; I10 Essential (primary) hypertension | CPT/HCPCS: 82947; 99212 ==

== ENCOUNTER 2020-08-19 09:53 | Emergency (ER) | payer MEDICAID, SELFPAY ==
--- NOTE | 2020-08-19 | ECG_ITS ---
Test Reason : HYPERGLYCEMIA Blood Pressure : / mmHG Vent. Rate : 061 BPM Atrial Rate : 061 BPM P-R Int : 142 ms QRS Dur : 086 ms QT Int : 410 ms P-R-T Axes : 054 024 023 degrees QTc Int : 412 ms Normal sinus rhythm Normal ECG When compared with ECG of 27-APR-2020 21:32, No significant change was found Referred By: Generic ED Physician Electronically Signed By:DREW PEREZ MD
[2020-08-19 10:00] VITALS: BP 154/98; PULSE 62; RESP 20; TEMP 36.6; O2SAT 98; BMI 22.8
[2020-08-19 10:10] VITALS: BP 154/98; PULSE 65; RESP 20; TEMP 36.6; O2SAT 99
--- NOTE | 2020-08-19 10:13 | ED_ITS ---
HPI - General Adult General Chief complaint: General Medical Stated complaint: HIGH BS Time Seen by Provider: 08/19/20 10:04 Source: patient Mode of arrival: ambulatory Limitations: no limitations History of Present Illness HPI narrative: Patient presents to the ED for blurry vision, weakness, increased thirst, and increased urinary frequency. Patient states having the symptoms for the past 2 days. Patient admits to not being compliant with his insulin Lantus/Humalog for the past 2 days. Patient states no chest pain, coughing up blood, fever, chills, slurred speech, facial droop, or paralysis of extremities. Related Data Home Medications Medication Instructions Recorded Confirmed Jardiance 10 mg PO DAILY 04/25/20 08/19/20 cholecalciferol (vitamin D3) 25 mcg PO DAILY 04/25/20 08/19/20 [Vitamin D3] lisinopril 5 mg PO DAILY 04/25/20 08/19/20 metformin 1,000 mg PO BID 04/25/20 08/19/20 gabapentin 300 mg capsule 400 mg PO TID cap 08/19/20 08/19/20 Previous Rx's Medication Instructions Recorded blood sugar diagnostic [FreeStyle #100 ea 04/25/20 Lite Strips] insulin glargine 100 unit/mL 34 unit SUBCUT BEDTIME 30 Days #15 08/19/20 subcutaneous solution ml insulin lispro 100 unit/mL 10 - 20 unit SUBCUT TID #15 ml 08/19/20 subcutaneous pen Allergies Allergy/AdvReac Type Severity Reaction Status Date / Time No Known Allergies Allergy Verified 08/19/20 10:09 [No Known Allergies*] Review of Systems Review of Systems: Yes all other systems are reviewed and are negative Constitutional: Constitutional: Reports as per HPI and Reports no additional constitutional complaints Eyes: Eyes: Reports as per HPI and Reports no additional eye complaints ENT: Reports system reviewed and no additional complaints, except as documented and Reports as per HPI Comments: Weakness, Blurry vission Cardiovascular: Cardiovascular: Reports as per HPI and Reports no additional cardiovascular complaints Respiratory: Respiratory: Reports as per HPI and Reports no additional respiratory complaints Gastrointestinal: Gastrointestinal: Reports as per HPI and Reports no additional gastrointestinal complaints Genitourinary: Genitourinary: Reports no additional male genitourinary complaints and Reports as per HPI Musculoskeletal: Musculoskeletal: Reports no additional musculoskeletal complaints and Reports as per HPI Neurologic: Reports system reviewed and no additional complaints, except as documented and Reports as per HPI Psychiatric: Psychiatric: Reports no additional psychiatric complaints and Reports as per HPI [facility] Past Medical History Medical History (Updated 08/19/20 @ 14:54 by FABIANO Ace) Diabetes Diabetes type 2, uncontrolled Hypertension Substance abuse Type 2 diabetes mellitus with diabetic polyneuropathy Surgical History (Updated 08/19/20 @ 09:02 by DOLORES Szymanski) No history of previous surgery Family History Family History (Updated 08/19/20 @ 09:03 by DOLORES Szymanski) Father Diabetes Hypertension Mother Heart problem Arthritis Asthma Social History Social History Household Members: None Housing: Apartment Smoking Status: Never smoker Use of substances other than those prescribed or required for medical reasons: No Substance Use Type: Crack/Cocaine Advance Directives: No Advance Directives Information Provided: No service: No Current occupational status: unemployed Physical Exam Vital Signs: Vital Signs: Last Vital Signs Temp 98.1 F 08/19/20 13:59 Pulse 71 08/19/20 16:24 Resp 16 08/19/20 16:24 BP 129/83 08/19/20 16:24 Pulse Ox 97 08/19/20 16:24 Body Mass Index 22.8 Const: General: cooperative, healthy appearing, comfortable, no acute distress, well developed, alert, awake and Physically active Orientation/consciousness: patient oriented x3 HENMT: Head: Yes normal to inspection, Yes No palpable skull fracture present, Yes normocephalic and Yes atraumatic Eyes: General: appearance normal, both eyes and all related structures Neck: Neck: Yes normal visual inspection, Yes full ROM, Yes no lymp hadenopathy, Yes no meningeal signs, Yes trachea midline, Yes supple and No tender Chest: Chest palpation & inspection: normal inspection of the chest and normal palpation of entire chest wall Resp: Effort & Inspection: normal respiratory effort and able to speak in complete sentences Auscultation: clear to auscultation bilaterally Cardio: Jugular venous distension: no JVD Heart sounds: S1 normal heart sound present and S2 normal heart sound present GI: Inspection: Yes normal to inspection and No abdominal wall ecchymosis Palpation (GI): Soft to palpation, not firm, nontender, no guarding and not rigid : General: No CVA tenderness and Yes no CVA tenderness Back/Spine/Pelvis: Back: no CVA tenderness, No CVA tenderness and No back tenderness Skin: General skin exam: no rashes or lesions noted and elasticity normal Neuro: Other: Negative facial droop. Negative slurred speech. All extremities 5+ equal strength and intact. Negative Romberg. [id number] and hand movement intact. General: patient oriented x3, gait normal, no meningeal signs and CN's II-XI intact bilaterally Cranial nerves: Yes CN's II-XII intact bilaterally Extrem: General: Yes normal to inspection and Yes full ROM Psych: Appearance: grossly normal, well kempt and not disheveled Course Course Course Narrative: Symptoms most likely due to hyperglycemia will rule out DKA. Patient will be given fluids and IV insulin. EKG ordered. Reevaluation(s) Reevaluation #1: Patient is not in DKA. Patient's troponin negative. EKG negative for STEMI. Will repeat fingerstick. Educated on compliance with Lantus and Humalog. Reevaluation #2: Patient states he feels better after receiving fluids . Glucose improved from 561 to 236. Patient will be discharged. patient states he will be compliant with meds. Medical Decision Making MDM Narrative Medical decision making narrative: Hyperglycemia Lab Data Result diagrams: 08/19/20 10:47 08/19/20 11:13 Labs: Lab Results 08/19/20 08/19/20 08/19/20 Range/Units 10:10 10:47 10:47 WBC 5.1 (4.8-10.8) X10*3/uL RBC 4.88 (4.60-5.80) X10*6/uL Hgb 14.4 (14.0-18.0) g/dl Hct 41.9 L D (42-52) % MCV 85.9 (80-98) fL MCH 29.5 (27.0-33.0) pg MCHC 34.4 (31.0-36.0) g/dl RDW 12.4 (11.0-16.0) % Plt Count 274 D (160-400) X10*3/uL MPV 10.6 (9.4-12.4) fL Immature Gran % (Auto) 0.0 (0.0-0.4) % Neut % (Auto) 52.1 (45-73) % Lymph % (Auto) 40.2 H (20-40) % [place] % (Auto) 5.9 (2-11) % Eos % (Auto) 1.2 (0-4) % Baso % (Auto) 0.6 (0-2) % Lymph # (Auto) 2.0 (1.2-4.9) X10*3/uL [place] # (Auto) 0.3 (0.1-1.2) X10*3/uL Eos # (Auto) 0.1 (0.0-0.4) X10*3/uL Baso # (Auto) 0.0 (0.0-0.2) X10*3/uL Abs Immat Gran (auto) 0.00 (0.00-0.03) X10*3/uL Absolute Neuts (auto) 2.7 (2.0-8.3) X10*3/uL Absolute Nucleated RBC 0.000 (0.0-0.012) X10*3/uL Nucleated RBC % (auto) 0.0 (0.0-0.2) /100WBC PT (10.8-13.0) SEC INR (0.9-1.1) APTT (24.1-38.0) SEC Sodium (135-145) mmol/L Potassium (3.3-5.1) mmol/L Chloride (96-108) mmol/L Carbon Dioxide (22-29) mmol/L Anion Gap (12-20) BUN (9-16) mg/dL Creatinine (0.5-1.4) mg/dL Estim Creat Clear Calc Estimated GFR POC Glucose 561 H* (60-115) mg/dL Random Glucose (60-115) mg/dL Calcium (8.4-10.2) mg/dL Total Bilirubin (0.0-1.0) mg/dL AST (5-37) U/L ALT (0-40) U/L Alkaline Phosphatase (39-117) U/L Troponin I High Sens < 3.5 (<3.5-35.0) ng/L Total Protein (6.5-8.0) g/dL Albumin (3.5-5.0) g/dL Urine Color Urine Appearance Urine pH (5.0-8.0) Ur Specific [place] (1.005-1.025) Urine Protein (NEG-TRACE) MG/DL Urine Glucose (UA) (NEG) MG/DL Urine Ketones (NEG) MG/DL Urine Blood (NEG) Urine Nitrite (NEG) Ur Leukocyte Esterase (NEG) Urine RBC (0) /HPF Urine WBC (0-4) /HPF Ur Squamous Epith Cells /LPF Urine Bacteria /LPF Acetone, Qual (Negative) 08/19/20 08/19/20 08/19/20 Range/Units 11:13 11:13 12:17 WBC (4.8-10.8) X10*3/uL RBC (4.60-5.80) X10*6/uL Hgb (14.0-18.0) g/dl Hct (42-52) % MCV (80-98) fL MCH (27.0-33.0) pg MCHC (31.0-36.0) g/dl RDW (11.0-16.0) % Plt Count (160-400) X10*3/uL MPV (9.4-12.4) fL Immature Gran % (Auto) (0.0-0.4) % Neut % (Auto) (45-73) % Lymph % (Auto) (20-40) % [place] % (Auto) (2-11) % Eos % (Auto) (0-4) % Baso % (Auto) (0-2) % Lymph # (Auto) (1.2-4.9) X10*3/uL [place] # (Auto) (0.1-1.2) X10*3/uL Eos # (Auto) (0.0-0.4) X10*3/uL Baso # (Auto) (0.0-0.2) X10*3/uL Abs Immat Gran (auto) (0.00-0.03) X10*3/uL Absolute Neuts (auto) (2.0-8.3) X10*3/uL Absolute Nucleated RBC (0.0-0.012) X10*3/uL Nucleated RBC % (auto) (0.0-0.2) /100WBC PT 10.8 (10.8-13.0) SEC INR 0.9 (0.9-1.1) APTT 27.1 (24.1-38.0) SEC Sodium 128 L (135-145) mmol/L Potassium 3.9 (3.3-5.1) mmol/L Chloride 93 L (96-108) mmol/L Carbon Dioxide 26 (22-29) mmol/L Anion Gap 13 (12-20) BUN 15 D (9-16) mg/dL Creatinine 1.33 (0.5-1.4) mg/dL Estim Creat Clear Calc 62.4 Estimated GFR 56 POC Glucose 392 H* (60-115) mg/dL Random Glucose 573 H* (60-115) mg/dL Calcium 9.0 D (8.4-10.2) mg/dL Total Bilirubin 0.4 (0.0-1.0) mg/dL AST 9 (5-37) U/L ALT 9 (0-40) U/L Alkaline Phosphatase 109 D (39-117) U/L Troponin I High Sens (<3.5-35.0) ng/L Total Protein 6.8 D (6.5-8.0) g/dL Albumin 4.0 D (3.5-5.0) g/dL Urine Color Urine Appearance Urine pH (5.0-8.0) Ur Specific [place] (1.005-1.025) Urine Protein (NEG-TRACE) MG/DL Urine Glucose (UA) (NEG) MG/DL Urine Ketones (NEG) MG/DL Urine Blood (NEG) Urine Nitrite (NEG) Ur Leukocyte Esterase (NEG) Urine RBC (0) /HPF Urine WBC (0-4) /HPF Ur Squamous Epith Cells /LPF Urine Bacteria /LPF Acetone, Qual Negative (Negative) 08/19/20 08/19/20 08/19/20 Range/Units 13:38 13:40 15:11 WBC (4.8-10.8) X10*3/uL RBC (4.60-5.80) X10*6/uL Hgb (14.0-18.0) g/dl Hct (42-52) % MCV (80-98) fL MCH (27.0-33.0) pg MCHC (31.0-36.0) g/dl RDW (11.0-16.0) % Plt Count (160-400) X10*3/uL MPV (9.4-12.4) fL Immature Gran % (Auto) (0.0-0.4) % Neut % (Auto) (45-73) % Lymph % (Auto) (20-40) % [place] % (Auto) (2-11) % Eos % (Auto) (0-4) % Baso % (Auto) (0-2) % Lymph # (Auto) (1.2-4.9) X10*3/uL [place] # (Auto) (0.1-1.2) X10*3/uL Eos # (Auto) (0.0-0.4) X10*3/uL Baso # (Auto) (0.0-0.2) X10*3/uL Abs Immat Gran (auto) (0.00-0.03) X10*3/uL Absolute Neuts (auto) (2.0-8.3) X10*3/uL Absolute Nucleated RBC (0.0-0.012) X10*3/uL Nucleated RBC % (auto) (0.0-0.2) /100WBC PT (10.8-13.0) SEC INR (0.9-1.1) APTT (24.1-38.0) SEC Sodium (135-145) mmol/L Potassium (3.3-5.1) mmol/L Chloride (96-108) mmol/L Carbon Dioxide (22-29) mmol/L Anion Gap (12-20) BUN (9-16) mg/dL Creatinine (0.5-1.4) mg/dL Estim Creat Clear Calc Estimated GFR POC Glucose 344 H 359 H* (60-115) mg/dL Random Glucose (60-115) mg/dL Calcium (8.4-10.2) mg/dL Total Bilirubin (0.0-1.0) mg/dL AST (5-37) U/L ALT (0-40) U/L Alkaline Phosphatase (39-117) U/L Troponin I High Sens (<3.5-35.0) ng/L Total Protein (6.5-8.0) g/dL Albumin (3.5-5.0) g/dL Urine Color STRAW Urine Appearance CLEAR Urine pH 6.5 (5.0-8.0) Ur Specific [place] 1.010 (1.005-1.025) Urine Protein NEG (NEG-TRACE) MG/DL Urine Glucose (UA) >=1000 H (NEG) MG/DL Urine Ketones 5 (NEG) MG/DL Urine Blood NEG (NEG) Urine Nitrite NEG (NEG) Ur Leukocyte Esterase NEG (NEG) Urine RBC 0 (0) /HPF Urine WBC 0 (0-4) /HPF Ur Squamous Epith Cells TRACE /LPF Urine Bacteria NONE /LPF Acetone, Qual (Negative) 08/19/20 Range/Units 16:22 WBC (4.8-10.8) X10*3/uL RBC (4.60-5.80) X10*6/uL Hgb (14.0-18.0) g/dl Hct (42-52) % MCV (80-98) fL MCH (27.0-33.0) pg MCHC (31.0-36.0) g/dl RDW (11.0-16.0) % Plt Count (160-400) X10*3/uL MPV (9.4-12.4) fL Immature Gran % (Auto) (0.0-0.4) % Neut % (Auto) (45-73) % Lymph % (Auto) (20-40) % [place] % (Auto) (2-11) % Eos % (Auto) (0-4) % Baso % (Auto) (0-2) % Lymph # (Auto) (1.2-4.9) X10*3/uL [place] # (Auto) (0.1-1.2) X10*3/uL Eos # (Auto) (0.0-0.4) X10*3/uL Baso # (Auto) (0.0-0.2) X10*3/uL Abs Immat Gran (auto) (0.00-0.03) X10*3/uL Absolute Neuts (auto) (2.0-8.3) X10*3/uL Absolute Nucleated RBC (0.0-0.012) X10*3/uL Nucleated RBC % (auto) (0.0-0.2) /100WBC PT (10.8-13.0) SEC INR (0.9-1.1) APTT (24.1-38.0) SEC Sodium (135-145) mmol/L Potassium (3.3-5.1) mmol/L Chloride (96-108) mmol/L Carbon Dioxide (22-29) mmol/L Anion Gap (12-20) BUN (9-16) mg/dL Creatinine (0.5-1.4) mg/dL Estim Creat Clear Calc Estimated GFR POC Glucose 236 H (60-115) mg/dL Random Glucose (60-115) mg/dL Calcium (8.4-10.2) mg/dL Total Bilirubin (0.0-1.0) mg/dL AST (5-37) U/L ALT (0-40) U/L Alkaline Phosphatase (39-117) U/L Troponin I High Sens (<3.5-35.0) ng/L Total Protein (6.5-8.0) g/dL Albumin (3.5-5.0) g/dL Urine Color Urine Appearance Urine pH (5.0-8.0) Ur Specific [place] (1.005-1.025) Urine Protein (NEG-TRACE) MG/DL Urine Glucose (UA) (NEG) MG/DL Urine Ketones (NEG) MG/DL Urine Blood (NEG) Urine Nitrite (NEG) Ur Leukocyte Esterase (NEG) Urine RBC (0) /HPF Urine WBC (0-4) /HPF Ur Squamous Epith Cells /LPF Urine Bacteria /LPF Acetone, Qual (Negative) ECG Data Interpretation: Normal Sinus rhythn. Vent rate 61, WA interval 142, QRS 86, QTC 412. negative for stemi Discharge Plan Discharge Clinical Impression: Diabetes Patient Disposition: Home, Self-Care Instructions: Diabetic Hyperglycemia (ED) Additional Instructions: Return to the ED for any chest pain, shorntess of breath, slurred speech, loss of vision, loss of vision, increase thirst, increase urinary frequency, abdominal pain, or any other concerning symptoms. Prescriptions: No Action Jardiance 10 mg Tablet 10 mg PO DAILY RF: 0 lisinopril 5 mg Tablet 5 mg PO DAILY RF: 0 metformin 500 mg Tablet 1,000 mg PO BID RF: 0 cholecalciferol (vitamin D3) [Vitamin D3] 25 mcg (1,000 unit) Tablet 25 mcg PO DAILY RF: 0 (DME) FreeStyle Lite Strips Strip See Rx Instructions .ROUTE .MEDSUPPLY Qty: 100 RF: 0 gabapentin 300 mg capsule 400 mg PO TID RF: 0 Lantus U-100 Insulin 100 unit/mL solution 34 unit SUBCUT BEDTIME 30 Days Qty: 15 RF: 2 insulin lispro [Humalog KwikPen Insulin] 100 unit/mL insulin pen 10 - 20 unit SUBCUT TID Qty: 15 RF: 3 Referrals: Marc Lang MD [Primary Care Provider] - 2 days (Hyperglycemia due to non- compliance with meds. Not in DKA.) Interventions: ED Discharge Assessment Last Done: 08/19/20 16:51 Discharge Date/Time: 08/19/20 16:40 Print Language: [place]ian
[2020-08-19 10:14] LABS: Glucose, Whole Blood 561 mg/dL (60-115)
[2020-08-19 10:52] LABS: MANUAL DIFF FLAG NO
[2020-08-19 10:55] LABS: Basophils Percent Auto 0.6 % (0-2); Eosinophils Absolute Auto 0.1 X10*3/uL (0.0-0.4); Eosinophils Percent Auto 1.2 % (0-4); Hematocrit 41.9 % (42-52); Hemoglobin 14.4 g/dl (14.0-18.0); Lymphocytes Percent Auto 40.2 % (20-40); Mean Corpuscular HGB Conc 34.4 g/dl (31.0-36.0); Mean Corpuscular Hemoglobin 29.5 pg (27.0-33.0); Mean Corpuscular Volume 85.9 fL (80-98); Mean Platelet Volume 10.6 fL (9.4-12.4); Monocytes Absolute Auto 0.3 X10*3/uL (0.1-1.2); Monocytes Percent Auto 5.9 % (2-11); Neutrophils Absolute Auto 2.7 X10*3/uL (2.0-8.3); Neutrophils Percent Auto 52.1 % (45-73); Platelet Count 274 X10*3/uL (160-400); Red Blood Count 4.88 X10*6/uL (4.60-5.80); Red Cell Distribution Width 12.4 % (11.0-16.0); White Blood Count 5.1 X10*3/uL (4.8-10.8)
[2020-08-19] MEDS: Insulin Regular, Human 100 UNIT/ML 3 ML VIAL 10 UNIT IVPUSH (10:58)
[2020-08-19] MEDS: 0.9 % Sodium Chloride 1,000 ML 999 ML IV ×4 (10:58→13:33)
--- NOTE | 2020-08-19 11:06 | PC.NURSE ---
Pt alert, oriented, VSS, Pt reports BS above 500 prior to arrival to ED. C/O lightheadedness and general weakness. ED POC 561, 10u Regular insulin given. IV established, fluids hung. Pt resting quietly in room at this time.
[2020-08-19 11:22] LABS: Troponin-I High Sensitivity < 3.5 ng/L (<3.5-35.0)
[2020-08-19 11:26] LABS: INTERNATIONAL NORM RATIO 0.9 (0.9-1.1); Prothrombin Time 10.8 SEC (10.8-13.0)
[2020-08-19 11:29] LABS: Partial Thromboplastin Time 27.1 SEC (24.1-38.0)
[2020-08-19 11:37] LABS: Acetone, serum QL Negative (Negative)
[2020-08-19 11:49] LABS: Alanine Aminotransferase 9 U/L (0-40); Alkaline Phosphatase 109 U/L (39-117); Anion Gap 13 (12-20); Aspartate Amino Transferase 9 U/L (5-37); Bilirubin Total 0.4 mg/dL (0.0-1.0); Blood Urea Nitrogen 15 mg/dL (9-16); Carbon Dioxide 26 mmol/L (22-29); Chloride 93 mmol/L (96-108); Creatinine Clr Calc Pharmacy 62.4; Estimated Glomerular Filt Rate 56; Glucose Random 573 mg/dL (60-115); Potassium 3.9 mmol/L (3.3-5.1); Sodium 128 mmol/L (135-145); Total Protein 6.8 g/dL (6.5-8.0)
[2020-08-19 12:18] VITALS: BP 160/97; PULSE 66; RESP 16; O2SAT 99
[2020-08-19 12:22] LABS: Glucose, Whole Blood 392 mg/dL (60-115)
[2020-08-19 13:47] LABS: Glucose, Whole Blood 344 mg/dL (60-115)
[2020-08-19 13:51] LABS: Glucose Urine UA >=1000 MG/DL (NEG); Leukocyte Esterase Urine NEG (NEG); Nitrite Urine NEG (NEG); PH 6.5 (5.0-8.0); Urine Blood NEG (NEG); Urine Ketones 5 MG/DL (NEG); Urine Protein NEG (NEG-TRACE)
[2020-08-19 13:52] LABS: Appearance Urine CLEAR; Color Urine STRAW
[2020-08-19 13:59] VITALS: BP 159/97; PULSE 64; RESP 18; TEMP 36.7; O2SAT 98
[2020-08-19 14:00] LABS: RBC Urine 0 /HPF (0); Squamous Epithelial Cell Urine TRACE /LPF; WBC Urine 0 /HPF (0-4)
[2020-08-19 15:16] LABS: Glucose, Whole Blood 359 mg/dL (60-115)
[2020-08-19] MEDS: Insulin Regular, Human 100 UNIT/ML 3 ML VIAL 8 UNIT IVPUSH (15:18)
[2020-08-19 16:24] VITALS: BP 129/83; PULSE 71; RESP 16; O2SAT 97
[2020-08-19 16:26] LABS: Glucose, Whole Blood 236 mg/dL (60-115)
== END 2020-08-19 16:40 | disposition home or self-care (01) ==
PROVIDERS: Physician Assistant; Emergency Provider Emergency Medicine; PCP Internal Medicine
DX: E11.65 Type 2 diabetes mellitus with hyperglycemia (principal); F14.90 Cocaine use, unspecified, uncomplicated; Z79.4 Long term (current) use of insulin; Z79.899 Other long term (current) drug therapy
CPT/HCPCS: 36415; 80053; 81001; 82009; 82947; 84484; 85025; 85610; 85730; 93005; 96365; 96375; 99284

== ENCOUNTER 2020-09-28 11:18 | Emergency (ER) | payer MEDICAID, SELFPAY ==
[2020-09-28 11:47] VITALS: BP 142/88; PULSE 103; RESP 19; TEMP 36.7; O2SAT 98; BMI 22.3
[2020-09-28 12:12] LABS: Glucose, Whole Blood 366 mg/dL (60-115)
[2020-09-30 08:37] LABS: Glucose, Whole Blood 479 mg/dL (60-115)
[2020-09-30 08:39] LABS: Glucose, Whole Blood 549 mg/dL (60-115)
== END 2020-09-28 14:03 | disposition left against medical advice (07) ==
PROVIDERS: Emergency Provider Emergency Medicine
DX: R73.9 Hyperglycemia, unspecified (principal)
CPT/HCPCS: 82947; 99282

== ENCOUNTER 2020-09-29 17:59 | Inpatient (IN) | payer MEDICAID, SELFPAY ==
--- NOTE | ~2020-09-29 | XR_ITS ---
EXAMINATION: XR FOOT, LEFT CLINICAL INFORMATION: Pain. Injury. COMPARISON: None TECHNIQUE: AP, lateral, and oblique views of the left foot. FINDINGS: The bones and soft tissues are normal. No fracture. Alignment is anatomic. Joint spaces are maintained. XR/XR foot LT min 3V IMPRESSION: Normal left foot.
--- NOTE | ~2020-09-29 | XR_ITS ---
EXAMINATION: XR CHEST CLINICAL INFORMATION: Weakness COMPARISON: Chest x-ray 04/28/2020 TECHNIQUE: Frontal portable view of the chest was obtained. 9:00 PM FINDINGS: No significant abnormality is noted involving the heart, lungs, mediastinum, bony thorax or soft tissues. XR/XR chest 1V IMPRESSION: Unremarkable examination.
[2020-09-29 18:09] VITALS: BP 154/85; BP 155/86; PULSE 105; PULSE 115; RESP 20; O2SAT 100; O2SAT 97; BMI 19.9
[2020-09-29 19:46] VITALS: BP 132/92; PULSE 96; RESP 24; O2SAT 99
--- NOTE | 2020-09-29 19:55 | PC.NURSE ---
REPORT FROM YADIRA AT 19:00. PT HAS #22 IN RIGHT HAND, 500CC'S 0.9 NS ATTACHED BUT NOT INFUSING. FLUSHED LINE AND INFUSION RESTARTED.
[2020-09-29 20:23] LABS: MANUAL DIFF FLAG NO
[2020-09-29] MEDS: ondansetron HCL 4 MG/2 ML VIAL IVPUSH (20:23)
[2020-09-29 20:24] LABS: Basophils Percent Auto 0.2 % (0-2); Hematocrit 46.8 % (42-52); Hemoglobin 15.7 g/dl (14.0-18.0); Imm Gran Abs Auto 0.06 X10*3/uL (0.00-0.03); Imm Gran Pct Auto 0.4 % (0.0-0.4); Lymphocytes Absolute Auto 1.5 X10*3/uL (1.2-4.9); Lymphocytes Percent Auto 8.6 % (20-40); Mean Corpuscular HGB Conc 33.5 g/dl (31.0-36.0); Mean Corpuscular Volume 89.3 fL (80-98); Mean Platelet Volume 11.1 fL (9.4-12.4); Monocytes Absolute Auto 0.6 X10*3/uL (0.1-1.2); Monocytes Percent Auto 3.3 % (2-11); Neutrophils Absolute Auto 14.8 X10*3/uL (2.0-8.3); Neutrophils Percent Auto 87.5 % (45-73); Platelet Count 376 X10*3/uL (160-400); Red Blood Count 5.24 X10*6/uL (4.60-5.80); Red Cell Distribution Width 13.4 % (11.0-16.0); White Blood Count 16.8 X10*3/uL (4.8-10.8)
[2020-09-29 20:28] LABS: Glucose Urine UA >=1000 MG/DL (NEG); Leukocyte Esterase Urine NEG (NEG); Nitrite Urine NEG (NEG); PH 5.5 (5.0-8.0); Specific Gravity - Urine >= 1.030 (1.005-1.025); Urine Blood NEG (NEG); Urine Ketones >=80 MG/DL (NEG); Urine Protein NEG (NEG-TRACE)
[2020-09-29 20:29] LABS: Appearance Urine CLEAR; Color Urine YELLOW
[2020-09-29 20:34] LABS: Bacteria Urine TRACE /LPF; RBC Urine 0-2 /HPF (0); Squamous Epithelial Cell Urine 1+ /LPF; WBC Urine 0 /HPF (0-4)
[2020-09-29 20:40] LABS: Acetone, serum QL Small (Negative)
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
[2020-09-29 20:51] LABS: Alanine Aminotransferase 10 U/L (0-40); Alkaline Phosphatase 100 U/L (39-117); Anion Gap 41 (12-20); Aspartate Amino Transferase 12 U/L (5-37); Bilirubin Total 0.7 mg/dL (0.0-1.0); Blood Urea Nitrogen 64 mg/dL (9-16); Calcium 10.1 mg/dL (8.4-10.2); Carbon Dioxide 12 mmol/L (22-29); Chloride 88 mmol/L (96-108); Creatinine Clr Calc Pharmacy 25.6; Estimated Glomerular Filt Rate 23; Glucose Random 647 mg/dL (60-115); Potassium 4.4 mmol/L (3.3-5.1); Sodium 137 mmol/L (135-145); Total Protein 8.5 g/dL (6.5-8.0)
[2020-09-29] MEDS: 0.9 % Sodium Chloride 1,000 ML 999 ML IV (20:54)
[2020-09-29 21:00] LABS: Amphetamine Screen Urine Not Detected (Not Detect); Barbiturates, Urine Not Detected (Not Detect); Benzodiazepines Screen Urine Not Detected (Not Detect); Cannabinoid Screen Urine Not Detected (Not Detect); Cocaine Screen Urine POSITIVE (Not Detect); Opiate Screen Urine Not Detected (Not Detect); Phencyclidine Screen Urine Not Detected (Not Detect)
--- NOTE | 2020-09-29 21:07 | ECG_ITS ---
Test Reason : DKA Blood Pressure : / mmHG Vent. Rate : 105 BPM Atrial Rate : 105 BPM P-R Int : 138 ms QRS Dur : 074 ms QT Int : 328 ms P-R-T Axes : 076 047 034 degrees QTc Int : 433 ms Sinus tachycardia Possible Left atrial enlargement Borderline ECG When compared with ECG of 19-AUG-2020 10:20, Vent. rate has increased BY 44 BPM T wave amplitude has decreased in Lateral leads Referred By: Kole Regan Electronically Signed By:Royal Cavazos
--- NOTE | 2020-09-29 21:11 | PC.NURSE ---
PT REPORTS HE HAS NOT BEEN ABLE TO GO BACK TO HIS HOUSE, HAS BEEN WITHOUT INSULIN X 2 DAYS. PT HAS A STRONG ODOR TO BREATH AND RR IN UPPER 20'S.
[2020-09-29] MEDS: Insulin Regular, Human 100 UNIT/ML 3 ML VIAL IVPUSH (21:20)
--- NOTE | 2020-09-29 21:26 | PHA.MEDREC ---
Pharmacy Consult ? Medication Reconciliation Pharmacy has completed the medication reconciliation based on pharmacy claim history as patient is not aware of meds.
[2020-09-29 21:29] VITALS: BP 175/99; PULSE 105; RESP 16; TEMP 36.6; O2SAT 107
[2020-09-29] MEDS: Insulin Regular/NS 100 UNIT/100 ML PLAST..BAG IVCONT (21:40)
[2020-09-29 21:53] LABS: VBG Base Excess -6.8 mmol/L; VBG HCO3 17 mmol/L (22-26); VBG pCO2 33 mmHg; VBG pH 7.33 (7.32-7.43); VBG pO2 45 mmHg
[2020-09-29 21:55] LABS: Venous Blood Gas Refer to POC result
--- NOTE | 2020-09-29 21:59 | PM.CCHP ---
History of Present Illness Date of Service: 09/29/20 Chief Complaint: Nausea and vomiting This is a 55-year-old male with a past medical history of insulin-dependent diabetes, ETOH and cocaine abuse Who presented to the emergency room with complaints of nausea and vomiting. Patient reports that he has not had access to insulin for the past 2 days, and started not feeling well earlier during the day. He also reported the use of crack cocaine 2 days ago. Denies any other complaints. Laboratory data significant for a WBC 16.8, chloride 88, bicarb 12, Gap 41, BUN 64, creatinine 2.90, glucose 647. Positive ketones in the urine. And positive cocaine on toxicology. In the ED he received 5 units of insulin as well as 1 L IV bolus. And started on IV insulin drip. Admitted into ICU for management of DKA requiring insulin infusion Review of Systems Constitutional: Constitutional: Denies chills, Denies excessive sweating, Reports fatigue, Denies fever(s) and Denies headache(s) ENT: Denies dizziness and Denies headache(s) Cardiovascular: Cardiovascular: Denies chest pain Respiratory: Respiratory: Denies cough Gastrointestinal: Gastrointestinal: Reports diarrhea, Reports nausea and Reports vomiting Musculoskeletal: Musculoskeletal: Denies myalgias Neurologic: Denies dizziness and Denies headache(s) Psychiatric: Psychiatric: Denies anxiety Endocrine: Endocrine: Denies excessive sweating and Reports fatigue PMFSH Past Medical History Medical History (Updated 09/29/20 @ 22:06 by Liliana Jimenez) Diabetes Diabetes type 2, uncontrolled Hypertension Substance abuse Type 2 diabetes mellitus with diabetic polyneuropathy Family History Family History (Updated 08/19/20 @ 09:03 by Gerardo Briggs Sia) Father Diabetes Hypertension Mother Heart problem Arthritis Asthma Surgical History Surgical History No history of previous surgery Social History Social History Household Members: None Housing: Apartment 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) Do you presently have visiting nurse or other home services: No Unable to assess alcohol history related to: Refusing to respond Substance Use Type: Crack/Cocaine Advance Directives: No Advance Directives Information Provided: No service: No Current occupational status: unemployed Meds Allergies Allergy/AdvReac Type Severity Reaction Status Date / Time No Known Allergies Allergy Verified 09/28/20 11:46 [No Known Allergies*] Active Medications: Current Medications Generic Name Dose Route Start Last Admin Trade Name Taq PRN Reason Stop Dose Admin Insulin Human Regular 100 unit in 100 mls @ 5 mls/hr 09/29/20 21:15 09/29/20 21:40 Myxredlin IVCONT 5 unit/hr .Q20H NICOLE 5 mls/hr Administration Protocol Per Protocol Lactated Ringer's 1,000 mls @ 200 mls/hr 09/29/20 21:30 Lr IVCONT .Q5H NICOLE Lactated Ringer's 1,000 mls @ 999 mls/hr 09/29/20 21:45 Lr IV 09/29/20 22:45 .Q1H1M NICOLE Ondansetron HCl 4 mg 09/29/20 21:22 Ondansetron Hcl 4 Mg/2 Ml Vial IVPUSH Q8H PRN Nausea Pharmacy Consult 1 each 09/29/20 21:11 Consult Rx Perform Med Rec MISCELLANE ONCE PRN Consult order Home Medications Medication Instructions Recorded Confirmed Last Taken Type cholecalciferol (vitamin D3) 25 mcg PO DAILY 04/25/20 09/29/20 Unknown History [Vitamin D3] metformin 1,000 mg PO BID 04/25/20 09/29/20 Unknown History acetaminophen 1 tab PO Q6H PRN 09/29/20 09/29/20 Unknown History empagliflozin [Jardiance] 1 tab PO DAILY 09/29/20 09/29/20 Unknown History gabapentin 1 cap PO TID 09/29/20 09/29/20 Unknown History lisinopril 1 tab PO DAILY 09/29/20 09/29/20 Unknown History sildenafil [Viagra] 1 tab PO DAILY PRN 09/29/20 09/29/20 Unknown History Physical Exam Vital Signs: Vital Signs: Last Vital Signs Temp 97.9 F 09/29/20 21:29 Pulse 105 H 09/29/20 21:29 Resp 16 09/29/20 21:29 BP 175/99 H 09/29/20 21:29 Pulse Ox 107 H 09/29/20 21:29 Body Mass Index 19.9 Const: General: cooperative, no acute distress and poor hygiene Orientation/consciousness: patient oriented x3 Eyes: General: appearance normal, both eyes and all related structures Neck: Neck: Yes supple and Yes no JVD Resp: Effort & Inspection: normal respiratory effort Auscultation: clear to auscultation bilaterally Cardio: Jugular venous distension: no JVD Rate: tachycardic Rhythm: regular rhythm Heart sounds: S1 normal heart sound present and S2 normal heart sound present GI: Palpation (GI): Soft to palpation Auscultation: normal bowel sounds Skin: General skin exam: dry skin Neuro: General: patient oriented x3 Cranial nerves: Yes CN's II-XII intact bilaterally Extrem: Other: Left toe pain Results Labs CBC and Chem 7: 09/29/20 20:19 09/29/20 20:19 Labs: Laboratory Results - last 24 hr 09/29/20 09/29/20 09/29/20 20:19 20:19 20:23 MCV 89.3 MCH 30.0 MCHC 33.5 RDW 13.4 Plt Count 376 D MPV 11.1 Immature Gran % (Auto) 0.4 Neut % (Auto) 87.5 H Lymph % (Auto) 8.6 L Logan % (Auto) 3.3 Eos % (Auto) 0.0 Baso % (Auto) 0.2 Lymph # (Auto) 1.5 Logan # (Auto) 0.6 Eos # (Auto) 0.0 Baso # (Auto) 0.0 Abs Immat Gran (auto) 0.06 H Absolute Neuts (auto) 14.8 H Absolute Nucleated RBC 0.000 Nucleated RBC % (auto) 0.0 VBG pH VBG pCO2 VBG pO2 VBG HCO3 VBG O2 Saturation VBG Base Excess Anion Gap 41 H Estim Creat Clear Calc 25.6 Estimated GFR 23 Random Glucose 647 H* Calcium 10.1 D Total Bilirubin 0.7 AST 12 ALT 10 Alkaline Phosphatase 100 Total Protein 8.5 H D Albumin 5.0 D Urine Color YELLOW Urine Appearance CLEAR Urine pH 5.5 Ur Specific [place] >= 1.030 H Urine Protein NEG Urine Glucose (UA) >=1000 H Urine Ketones >=80 Urine Blood NEG Urine Nitrite NEG Ur Leukocyte Esterase NEG Urine RBC 0-2 Urine WBC 0 Ur Squamous Epith Cells 1+ Urine Bacteria TRACE Urine Opiates Screen Ur Barbiturates Screen Ur Phencyclidine Scrn Ur Amphetamines Screen U Benzodiazepines Scrn Urine Cocaine Screen U Marijuana (THC) Screen Acetone, Qual Small H 09/29/20 09/29/20 20:23 21:46 MCV MCH MCHC RDW Plt Count MPV Immature Gran % (Auto) Neut % (Auto) Lymph % (Auto) Logan % (Auto) Eos % (Auto) Baso % (Auto) Lymph # (Auto) Logan # (Auto) Eos # (Auto) Baso # (Auto) Abs Immat Gran (auto) Absolute Neuts (auto) Absolute Nucleated RBC Nucleated RBC % (auto) VBG pH 7.33 VBG pCO2 33 VBG pO2 45 VBG HCO3 17 L VBG O2 Saturation 71.0 VBG Base Excess -6.8 Anion Gap Estim Creat Clear Calc Estimated GFR Random Glucose Calcium Total Bilirubin AST ALT Alkaline Phosphatase Total Protein Albumin Urine Color Urine Appearance Urine pH Ur Specific [place] Urine Protein Urine Glucose (UA) Urine Ketones Urine Blood Urine Nitrite Ur Leukocyte Esterase Urine RBC Urine WBC Ur Squamous Epith Cells Urine Bacteria Urine Opiates Screen Not Detected Ur Barbiturates Screen Not Detected Ur Phencyclidine Scrn Not Detected Ur Amphetamines Screen Not Detected U Benzodiazepines Scrn Not Detected Urine Cocaine Screen POSITIVE H U Marijuana (THC) Screen Not Detected Acetone, Qual Imaging Radiologist's Impressions: Impressions Chest X-Ray 09/29/20 21:02 IMPRESSION: Unremarkable examination. Foot X-Ray 09/29/20 21:02 IMPRESSION: Normal left foot. Assessment and Plan (1) Diabetes type 2, uncontrolled: Status: Acute (2) Diabetic ketoacidosis associated with diabetes mellitus due to underlying condition: Status: Acute 55-year-old male with history of insulin-dependent diabetes, who has not taking insulin x2 days now admitted into the ICU for DKA. Neuro: no acute issues Cardiac: no acute issues Pulmonary: no acute issues Renal: TISH- most likely related to hypoperfusion, nonoliguric. Continue Aggressive fluid resuscitation.. Continue to check renal induces and urine output GI: nausea and vomiting from gastroparesis. Continue Zofran p.r.n. Endo: Diabetes /diabetic ketoacidosis- continue insulin drip until his gap is close. Follow DKA protocol ID: leukocytosis: no evidence of infection at this time. Continue to closely monitor for signs of infection. CBC in the morning. Heme/Onc: No acute issues. Psych: ETOH / cocaine abuse- denies recent alcohol use, does admit to cocaine abuse. closely monitor for signs of ETOH withdrawal. Will start phenobarb protocol if does exhibit any symptoms Miscellaneous: No acute issues. Prophylaxis: Early ambulation Diet: NPO Critical care time: 60x minutes of critical care time CODE: FULL (3) TISH (acute kidney injury): Status: Acute Critical Care Time Critical Care Time (minutes): 60
[2020-09-29 22:02] LABS: COVID-19 Test Negative (Negative)
[2020-09-29 22:08] LABS: Glucose, Whole Blood 412 mg/dL (60-115)
[2020-09-29 22:15] LABS: Troponin-I High Sensitivity 4.7 ng/L (<3.5-35.0)
--- NOTE | 2020-09-29 22:19 | PC.NURSE ---
REPORT CALLED TO ICU, PT READY FOR TRANSPORT.
[2020-09-29 23:00] VITALS: O2SAT 99
--- NOTE | 2020-09-29 23:02 | PC.NURSE ---
pt complains multiple times of a bad taste in his mouth. pt reports he has been vomiting black emesis.
[2020-09-29] MEDS: Lactated Ringers 1,000 ML 999 ML IV (23:04)
--- NOTE | 2020-09-29 23:06 | PC.NURSE ---
rn neonatal icu called to update cc of vomiting dark emesis and possible upper gi bleeding.
[2020-09-29 23:12] VITALS: BP 133/60; PULSE 90; RESP 16
--- NOTE | 2020-09-29 23:44 | PC.NURSE ---
PT TRANSPORTED TO ICU AT 23:10 BY RN EMANUEL AND PCT LEONELA.
[2020-09-29 23:47] LABS: Glucose, Whole Blood 422 mg/dL (60-115)
--- NOTE | 2020-09-29 23:52 | PC.NURSE ---
POC CHECKED AND REPEATED AT APROX 20:30 PRIOR TO LABS BEING ORDERED. POC 550 AND 490 AND DOCUMENTED IN GLUCOMETER UNTDER DOWNTIME OVERIDE. DOCUMENTED IN PT'S CHART, BUT NOT SHOWING UP UNDER LABORATORY.
[2020-09-30] VITALS (25 sets, daily range): BP systolic 127–168; BP diastolic 77–117; PULSE 74–122; RESP 12–32; TEMP 36.7–36.9; O2SAT 97–100; BMI 19.9
[2020-09-30] MEDS: Lactated Ringers 1,000 ML 200 ML IVCONT (00:55)
[2020-09-30 01:01] LABS: Glucose, Whole Blood 263 mg/dL (60-115)
[2020-09-30 02:11] LABS: Glucose, Whole Blood 193 mg/dL (60-115)
[2020-09-30 02:17] LABS: Anion Gap 25 (12-20); Blood Urea Nitrogen 61 mg/dL (9-16); Calcium 10.1 mg/dL (8.4-10.2); Carbon Dioxide 19 mmol/L (22-29); Chloride 102 mmol/L (96-108); Creatinine Clr Calc Pharmacy 33.5; Estimated Glomerular Filt Rate 31; Glucose Random 247 mg/dL (60-115); Potassium 4.9 mmol/L (3.3-5.1); Sodium 141 mmol/L (135-145)
[2020-09-30] MEDS: Dextrose 5 % and Lactated Ring 1,000 ML 200 ML IVCONT ×2 (02:35→07:21)
[2020-09-30 02:58] LABS: Glucose, Whole Blood 193 mg/dL (60-115)
[2020-09-30] MEDS: LORazepam 1 MG TABLET PO (03:22)
[2020-09-30 04:14] LABS: Glucose, Whole Blood 170 mg/dL (60-115)
[2020-09-30 05:27] LABS: Glucose, Whole Blood 145 mg/dL (60-115)
[2020-09-30 05:38] LABS: VBG Base Excess 5.6 mmol/L; VBG HCO3 30 mmol/L (22-26); VBG pCO2 44 mmHg; VBG pH 7.44 (7.32-7.43); VBG pO2 45 mmHg
--- NOTE | 2020-09-30 05:38 | PC.NURSE ---
Addendum entered by Astrid Stovall RN 09/30/20 06:34: RN TRAUMA aware of AM labs. Plan to given 20 units lantus at 0700. Insulin gtt to be stopped at 0800. Will pass along to oncoming RN. Original Note: Pt admitted to ICU at approx 2300. Pt A&Ox4- moderately anxious, medicated with 1 mg PO Ativan x1 with some effect. NSR/ST on tele, HR 80-120s. SBP WNL. C/O SOB, SpO2 100% RA. Insulin gtt/IVF running per protocol, see drug titration. Reports nausea, no emesis. Tolerating ice chips. Aware of plan of care.
[2020-09-30 05:46] LABS: MANUAL DIFF FLAG NO
[2020-09-30 05:51] LABS: Basophils Percent Auto 0.1 % (0-2); Hematocrit 42.4 % (42-52); Hemoglobin 14.8 g/dl (14.0-18.0); Imm Gran Abs Auto 0.07 X10*3/uL (0.00-0.03); Imm Gran Pct Auto 0.4 % (0.0-0.4); Lymphocytes Absolute Auto 1.7 X10*3/uL (1.2-4.9); Lymphocytes Percent Auto 9.4 % (20-40); Mean Corpuscular HGB Conc 34.9 g/dl (31.0-36.0); Mean Corpuscular Volume 85.8 fL (80-98); Mean Platelet Volume 10.8 fL (9.4-12.4); Monocytes Percent Auto 5.6 % (2-11); Neutrophils Absolute Auto 14.8 X10*3/uL (2.0-8.3); Neutrophils Percent Auto 84.5 % (45-73); Platelet Count 318 X10*3/uL (160-400); Red Blood Count 4.94 X10*6/uL (4.60-5.80); Red Cell Distribution Width 13.2 % (11.0-16.0); White Blood Count 17.5 X10*3/uL (4.8-10.8)
[2020-09-30 06:12] LABS: Albumin Level 4.4 g/dL (3.5-5.0); Anion Gap 17 (12-20); Blood Urea Nitrogen 54 mg/dL (9-16); Calcium 9.8 mg/dL (8.4-10.2); Carbon Dioxide 27 mmol/L (22-29); Chloride 102 mmol/L (96-108); Creatinine Clr Calc Pharmacy 38.9; Estimated Glomerular Filt Rate 37; Glucose Random 128 mg/dL (60-115); Magnesium 2.5 mg/dL (1.6-2.6); Phosphorus 3.6 mg/dL (2.7-4.5); Sodium 142 mmol/L (135-145)
[2020-09-30 06:16] LABS: Glucose, Whole Blood 136 mg/dL (60-115)
[2020-09-30 06:54] LABS: Venous Blood Gas Refer to POC result
[2020-09-30] MEDS: Insulin Glargine,Hum.rec.anlog 100 UNIT/ML 10 ML VIAL 20 UNIT SUBCUT ×2 (07:18→19:25)
[2020-09-30 07:42] LABS: Glucose, Whole Blood 132 mg/dL (60-115)
[2020-09-30 08:21] LABS: Glucose, Whole Blood 179 mg/dL (60-115)
[2020-09-30] MEDS: LORazepam 2 MG/ML VIAL 1 MG IVPUSH (10:15)
--- NOTE | 2020-09-30 10:54 | PM.CCPN ---
Subjective Subjective Date of Service: 09/30/20 Critical Care Time (minutes): 0 Comment: 55-year-old gentleman with underlying history diabetes mellitus, hypertension, substance abuse admitted 09/30/2019 with diabetic ketoacidosis secondary to not having access to insulin for several days, and also cocaine intoxication. He was started on IV fluid resuscitation and insulin drip and emergency department and admitted to intensive care unit. No events overnight. Titrated off insulin drip. Physical Exam Vital Signs: Vital Signs: Last Vital Signs Temp 98.2 F 09/30/20 08:00 Pulse 112 H 09/30/20 10:00 Resp 32 H 09/30/20 10:00 BP 168/81 H 09/30/20 10:00 Pulse Ox 100 09/30/20 10:00 Body Mass Index 19.9 Const: General: no acute distress, alert and awake Eyes: Sclerae: sclerae normal EOM: EOMs intact bilaterally Neck: Neck: Yes no lymphadenopathy, Yes trachea midline and Yes supple Resp: Effort & Inspection: normal respiratory effort and no respiratory distress Auscultation: clear to auscultation bilaterally Cardio: Rate: regular rate Rhythm: regular rhythm Heart sounds: no gallops, no murmurs and no rubs GI: Palpation (GI): Soft to palpation and Other GI palpation findings present ( Nontender) Auscultation: normal bowel sounds Extrem: General: Yes no pedal edema, No clubbing and No cyanosis Objective Data Labs CBC & Chem 7: 09/30/20 05:32 09/30/20 05:33 Labs: Laboratory Results - last 24 hr 09/29/20 09/29/20 09/29/20 20:19 20:19 20:23 WBC 16.8 H RBC 5.24 Hgb 15.7 Hct 46.8 MCV 89.3 MCH 30.0 MCHC 33.5 RDW 13.4 Plt Count 376 D MPV 11.1 Immature Gran % (Auto) 0.4 Neut % (Auto) 87.5 H Lymph % (Auto) 8.6 L [place] % (Auto) 3.3 Eos % (Auto) 0.0 Baso % (Auto) 0.2 Lymph # (Auto) 1.5 [place] # (Auto) 0.6 Eos # (Auto) 0.0 Baso # (Auto) 0.0 Abs Immat Gran (auto) 0.06 H Absolute Neuts (auto) 14.8 H Absolute Nucleated RBC 0.000 Nucleated RBC % (auto) 0.0 VBG pH VBG pCO2 VBG pO2 VBG HCO3 VBG O2 Saturation VBG Base Excess Sodium 137 Potassium 4.4 Chloride 88 L Carbon Dioxide 12 L Anion Gap 41 H BUN 64 H D Creatinine 2.90 H Estim Creat Clear Calc 25.6 Estimated GFR 23 POC Glucose Random Glucose 647 H* Calcium 10.1 D Phosphorus Magnesium Total Bilirubin 0.7 AST 12 ALT 10 Alkaline Phosphatase 100 Troponin I High Sens Total Protein 8.5 H D Albumin 5.0 D Urine Color YELLOW Urine Appearance CLEAR Urine pH 5.5 Ur Specific [place] >= 1.030 H Urine Protein NEG Urine Glucose (UA) >=1000 H Urine Ketones >=80 Urine Blood NEG Urine Nitrite NEG Ur Leukocyte Esterase NEG Urine RBC 0-2 Urine WBC 0 Ur Squamous Epith Cells 1+ Urine Bacteria TRACE Urine Opiates Screen Ur Barbiturates Screen Ur Phencyclidine Scrn Ur Amphetamines Screen U Benzodiazepines Scrn Urine Cocaine Screen U Marijuana (THC) Screen Acetone, Qual Small H COVID-19 (JAYCE) COVID-19 Clin Com 09/29/20 09/29/20 09/29/20 20:23 21:42 21:43 WBC RBC Hgb Hct MCV MCH MCHC RDW Plt Count MPV Immature Gran % (Auto) Neut % (Auto) Lymph % (Auto) [place] % (Auto) Eos % (Auto) Baso % (Auto) Lymph # (Auto) [place] # (Auto) Eos # (Auto) Baso # (Auto) Abs Immat Gran (auto) Absolute Neuts (auto) Absolute Nucleated RBC Nucleated RBC % (auto) VBG pH VBG pCO2 VBG pO2 VBG HCO3 VBG O2 Saturation VBG Base Excess Sodium Potassium Chloride Carbon Dioxide Anion Gap BUN Creatinine Estim Creat Clear Calc Estimated GFR POC Glucose Random Glucose Calcium Phosphorus Magnesium Total Bilirubin AST ALT Alkaline Phosphatase Troponin I High Sens 4.7 Total Protein Albumin Urine Color Urine Appearance Urine pH Ur Specific [place] Urine Protein Urine Glucose (UA) Urine Ketones Urine Blood Urine Nitrite Ur Leukocyte Esterase Urine RBC Urine WBC Ur Squamous Epith Cells Urine Bacteria Urine Opiates Screen Not Detected Ur Barbiturates Screen Not Detected Ur Phencyclidine Scrn Not Detected Ur Amphetamines Screen Not Detected U Benzodiazepines Scrn Not Detected Urine Cocaine Screen POSITIVE H U Marijuana (THC) Screen Not Detected Acetone, Qual COVID-19 (JAYCE) Negative COVID-19 [employer] Com See Note 09/29/20 09/29/20 09/29/20 21:46 22:05 23:32 WBC RBC Hgb Hct MCV MCH MCHC RDW Plt Count MPV Immature Gran % (Auto) Neut % (Auto) Lymph % (Auto) [place] % (Auto) Eos % (Auto) Baso % (Auto) Lymph # (Auto) [place] # (Auto) Eos # (Auto) Baso # (Auto) Abs Immat Gran (auto) Absolute Neuts (auto) Absolute Nucleated RBC Nucleated RBC % (auto) VBG pH 7.33 VBG pCO2 33 VBG pO2 45 VBG HCO3 17 L VBG O2 Saturation 71.0 VBG Base Excess -6.8 Sodium Potassium Chloride Carbon Dioxide Anion Gap BUN Creatinine Estim Creat Clear Calc Estimated GFR POC Glucose 412 H* 422 H* Random Glucose Calcium Phosphorus Magnesium Total Bilirubin AST ALT Alkaline Phosphatase Troponin I High Sens Total Protein Albumin Urine Color Urine Appearance Urine pH Ur Specific [place] Urine Protein Urine Glucose (UA) Urine Ketones Urine Blood Urine Nitrite Ur Leukocyte Esterase Urine RBC Urine WBC Ur Squamous Epith Cells Urine Bacteria Urine Opiates Screen Ur Barbiturates Screen Ur Phencyclidine Scrn Ur Amphetamines Screen U Benzodiazepines Scrn Urine Cocaine Screen U Marijuana (THC) Screen Acetone, Qual COVID-19 (JAYCE) COVID-19 [employer] 09/30/20 09/30/20 09/30/20 00:57 01:13 02:06 WBC RBC Hgb Hct MCV MCH MCHC RDW Plt Count MPV Immature Gran % (Auto) Neut % (Auto) Lymph % (Auto) [place] % (Auto) Eos % (Auto) Baso % (Auto) Lymph # (Auto) [place] # (Auto) Eos # (Auto) Baso # (Auto) Abs Immat Gran (auto) Absolute Neuts (auto) Absolute Nucleated RBC Nucleated RBC % (auto) VBG pH VBG pCO2 VBG pO2 VBG HCO3 VBG O2 Saturation VBG Base Excess Sodium 141 Potassium 4.9 Chloride 102 Carbon Dioxide 19 L Anion Gap 25 H BUN 61 H Creatinine 2.22 H Estim Creat Clear Calc 33.5 Estimated GFR 31 POC Glucose 263 H 193 H Random Glucose 247 H D Calcium 10.1 Phosphorus Magnesium Total Bilirubin AST ALT Alkaline Phosphatase Troponin I High Sens Total Protein Albumin Urine Color Urine Appearance Urine pH Ur Specific [place] Urine Protein Urine Glucose (UA) Urine Ketones Urine Blood Urine Nitrite Ur Leukocyte Esterase Urine RBC Urine WBC Ur Squamous Epith Cells Urine Bacteria Urine Opiates Screen Ur Barbiturates Screen Ur Phencyclidine Scrn Ur Amphetamines Screen U Benzodiazepines Scrn Urine Cocaine Screen U Marijuana (THC) Screen Acetone, Qual COVID-19 (JAYCE) COVID-19 [employer] 09/30/20 09/30/20 09/30/20 02:53 04:10 05:22 WBC RBC Hgb Hct MCV MCH MCHC RDW Plt Count MPV Immature Gran % (Auto) Neut % (Auto) Lymph % (Auto) [place] % (Auto) Eos % (Auto) Baso % (Auto) Lymph # (Auto) [place] # (Auto) Eos # (Auto) Baso # (Auto) Abs Immat Gran (auto) Absolute Neuts (auto) Absolute Nucleated RBC Nucleated RBC % (auto) VBG pH VBG pCO2 VBG pO2 VBG HCO3 VBG O2 Saturation VBG Base Excess Sodium Potassium Chloride Carbon Dioxide Anion Gap BUN Creatinine Estim Creat Clear Calc Estimated GFR POC Glucose 193 H 170 H 145 H Random Glucose Calcium Phosphorus Magnesium Total Bilirubin AST ALT Alkaline Phosphatase Troponin I High Sens Total Protein Albumin Urine Color Urine Appearance Urine pH Ur Specific [place] Urine Protein Urine Glucose (UA) Urine Ketones Urine Blood Urine Nitrite Ur Leukocyte Esterase Urine RBC Urine WBC Ur Squamous Epith Cells Urine Bacteria Urine Opiates Screen Ur Barbiturates Screen Ur Phencyclidine Scrn Ur Amphetamines Screen U Benzodiazepines Scrn Urine Cocaine Screen U Marijuana (THC) Screen Acetone, Qual COVID-19 (JAYCE) COVID-19 [employer] 09/30/20 09/30/20 09/30/20 05:31 05:32 05:33 WBC 17.5 H RBC 4.94 Hgb 14.8 Hct 42.4 MCV 85.8 MCH 30.0 MCHC 34.9 RDW 13.2 Plt Count 318 MPV 10.8 Immature Gran % (Auto) 0.4 Neut % (Auto) 84.5 H Lymph % (Auto) 9.4 L [place] % (Auto) 5.6 Eos % (Auto) 0.0 Baso % (Auto) 0.1 Lymph # (Auto) 1.7 [place] # (Auto) 1.0 Eos # (Auto) 0.0 Baso # (Auto) 0.0 Abs Immat Gran (auto) 0.07 H Absolute Neuts (auto) 14.8 H Absolute Nucleated RBC 0.000 Nucleated RBC % (auto) 0.0 VBG pH 7.44 H VBG pCO2 44 VBG pO2 45 VBG HCO3 30 H VBG O2 Saturation 72.0 VBG Base Excess 5.6 Sodium 142 Potassium 4.0 Chloride 102 Carbon Dioxide 27 Anion Gap 17 BUN 54 H Creatinine 1.91 H Estim Creat Clear Calc 38.9 Estimated GFR 37 POC Glucose Random Glucose 128 H D Calcium 9.8 Phosphorus 3.6 Magnesium 2.5 Total Bilirubin AST ALT Alkaline Phosphatase Troponin I High Sens Total Protein Albumin 4.4 Urine Color Urine Appearance Urine pH Ur Specific [place] Urine Protein Urine Glucose (UA) Urine Ketones Urine Blood Urine Nitrite Ur Leukocyte Esterase Urine RBC Urine WBC Ur Squamous Epith Cells Urine Bacteria Urine Opiates Screen Ur Barbiturates Screen Ur Phencyclidine Scrn Ur Amphetamines Screen U Benzodiazepines Scrn Urine Cocaine Screen U Marijuana (THC) Screen Acetone, Qual COVID-19 (JAYCE) [employer] 09/30/20 09/30/20 09/30/20 06:13 07:13 08:12 WBC RBC Hgb Hct MCV MCH MCHC RDW Plt Count MPV Immature Gran % (Auto) Neut % (Auto) Lymph % (Auto) [place] % (Auto) Eos % (Auto) Baso % (Auto) Lymph # (Auto) [place] # (Auto) Eos # (Auto) Baso # (Auto) Abs Immat Gran (auto) Absolute Neuts (auto) Absolute Nucleated RBC Nucleated RBC % (auto) VBG pH VBG pCO2 VBG pO2 VBG HCO3 VBG O2 Saturation VBG Base Excess Sodium Potassium Chloride Carbon Dioxide Anion Gap BUN Creatinine Estim Creat Clear Calc Estimated GFR POC Glucose 136 H 132 H 179 H Random Glucose Calcium Phosphorus Magnesium Total Bilirubin AST ALT Alkaline Phosphatase Troponin I High Sens Total Protein Albumin Urine Color Urine Appearance Urine pH Ur Specific [place] Urine Protein Urine Glucose (UA) Urine Ketones Urine Blood Urine Nitrite Ur Leukocyte Esterase Urine RBC Urine WBC Ur Squamous Epith Cells Urine Bacteria Urine Opiates Screen Ur Barbiturates Screen Ur Phencyclidine Scrn Ur Amphetamines Screen U Benzodiazepines Scrn Urine Cocaine Screen U Marijuana (THC) Screen Acetone, Qual COVID-19 (JAYCE) COVID-19 [employer] Progress Note: A&P Assessment and plan (1) TISH (acute kidney injury): Status: Acute Assessment and Plan: Assessment: 55-year-old gentleman with underlying diabetes mellitus and substance abuse admitted with diabetic ketoacidosis also positive for cocaine Plan: Neuro: No acute issues. Cardiac: No acute issues. Pulmonary: No acute issues. Renal: Acute renal failure, likely secondary to underlying diabetic ketoacidosis, improving. Non oliguric. Continue to monitor renal indices and urine output. Endo: Diabetic ketoacidosis, now titrated off insulin drip. Continue with sliding scale insulin and Lantus. GI: No acute issues. ID: No acute issues Heme/Onc: No acute issues. Psych: No acute issues. Miscellaneous: No acute issues. Prophylaxis: heparin Diet: diabetic Critical care time spent: 0 (2) Substance abuse: Status: Acute (3) Diabetic ketoacidosis associated with diabetes mellitus due to underlying condition: Status: Acute (4) Hypertension: Status: Acute Quality Stroke Does the patient have a stroke diagnosis?: No VTE Prior VTE?: No VTE Risk Level:: Medical - low VTE Device Contraindication: Treatment Not Indicated VTE Drug Contraindication: Treatment Not Indicated
[2020-09-30 11:26] LABS: Glucose, Whole Blood 219 mg/dL (60-115)
[2020-09-30] MEDS: Calcium Carbonate 750 MG TAB.CHEW PO ×2 (11:39→16:10)
[2020-09-30] MEDS: LORazepam 2 MG/ML VIAL IVPUSH ×3 (11:50→23:08)
[2020-09-30] MEDS: Milk of Magnesia 30 ML ORAL.SUSP PO (12:02)
[2020-09-30] MEDS: Heparin Sodium,Porcine 5,000 UNIT/ML VIAL 5000 UNIT SUBCUT ×2 (12:02→19:26)
[2020-09-30 13:17] LABS: Anion Gap 22 (12-20); Blood Urea Nitrogen 46 mg/dL (9-16); Calcium 9.8 mg/dL (8.4-10.2); Carbon Dioxide 25 mmol/L (22-29); Chloride 98 mmol/L (96-108); Estimated Glomerular Filt Rate 42; Glucose Random 261 mg/dL (60-115); Sodium 141 mmol/L (135-145)
[2020-09-30] MEDS: Dextrose 5 % and Lactated Ring 1,000 ML 100 ML IVCONT (13:31)
[2020-09-30] MEDS: Insulin Regular/NS 100 UNIT/100 ML PLAST..BAG IVCONT (13:31)
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
[2020-09-30 14:19] LABS: Glucose, Whole Blood 272 mg/dL (60-115)
[2020-09-30 15:07] LABS: Glucose, Whole Blood 252 mg/dL (60-115)
--- NOTE | 2020-09-30 15:39 | MHC.RECOVRN ---
T/w attempted to meet with pt after consult placed to Addiction Medicine for cocaine addiction. Pt currently sleeping. Discussed case with pts RN who informed t/w pt was experiencing withdrawals earlier today, taking off BP cuff, agitation, getting out of bed, anxiety. Pt had been medicated with Ativan, total 3 mg. Pt able to rest after medication. Case discussed with Tracy Cho APRN.
[2020-09-30 16:36] LABS: Glucose, Whole Blood 182 mg/dL (60-115)
[2020-09-30 17:12] LABS: Glucose, Whole Blood 147 mg/dL (60-115)
[2020-09-30 18:15] LABS: Glucose, Whole Blood 151 mg/dL (60-115)
--- NOTE | 2020-09-30 18:37 | PC.NURSE ---
Pt showing w/d sx. MD aware, IV ativan ordered along with tums for GI upset. Educated pt that he was showing s/sx of w/d. Educated pt on medications. Ativan with good effect. Pt resting throughout day. Based off labs at 1200, insulin gtt restarted, IVF restarted, pt ok to eat and drink a little per MD. Went in room at 1830 because pt set off bed alarm. Pt stating he was anxious, began showing same sx as prior. Ativan given. Noticed pt R hand was slighly swollen. Fluids moved to other IV, IV removed for pt comfort. Pt took pictures on phone. Educated that it happens sometimes with IVs and we will keep an eye on it.
[2020-09-30 19:00] LABS: Anion Gap 18 (12-20); Blood Urea Nitrogen 38 mg/dL (9-16); Calcium 9.8 mg/dL (8.4-10.2); Carbon Dioxide 29 mmol/L (22-29); Chloride 97 mmol/L (96-108); Creatinine Clr Calc Pharmacy 52.3; Estimated Glomerular Filt Rate 52; Glucose Random 156 mg/dL (60-115); Sodium 140 mmol/L (135-145)
[2020-09-30 21:03] LABS: Glucose, Whole Blood 163 mg/dL (60-115)
[2020-09-30] MEDS: Insulin Lispro 100 UNIT/ML 3 ML VIAL SUBCUT (21:11)
[2020-09-30] MEDS: ondansetron HCL 4 MG/2 ML VIAL IVPUSH (23:18)
[2020-10-01] VITALS (18 sets, daily range): BP systolic 105–148; BP diastolic 70–98; PULSE 67–87; RESP 16–20; TEMP 36.3–36.9; O2SAT 96–100; BMI 19.6
[2020-10-01] MEDS: Calcium Carbonate 750 MG TAB.CHEW PO ×4 (00:46→19:19)
[2020-10-01] MEDS: Magnesium Hydrox/Alum Hydrox 30 ML ORAL.SUSP PO (01:05)
[2020-10-01] MEDS: Heparin Sodium,Porcine 5,000 UNIT/ML VIAL 5000 UNIT SUBCUT ×3 (02:49→18:25)
[2020-10-01] MEDS: LORazepam 2 MG/ML VIAL IVPUSH ×2 (02:55→22:22)
--- NOTE | 2020-10-01 05:27 | PC.NURSE ---
Labwork drawn at 1814 showed an anion gap of 18. Pt given Lantus insulin as ordered at 193 and insulin drip shut off at 2029. Will follow POC ac/hs and cover per sliding scale. POC done at 2099 was 163 and pt was given lispro 2 units subcutaneously as ordered per sliding scale. Pt had a diabetic snack but didn't eat much, maybe 1/2. He slept on and off in naps. When he would wake up, he was restless and wanted to go home. He would moan loudly. He is weak and cannot stand without 1 assist. Received ativan 2 mg iv x2 for anxiety. Currenly resting.
[2020-10-01 05:48] LABS: Alanine Aminotransferase 12 U/L (0-40); Albumin Level 3.8 g/dL (3.5-5.0); Alkaline Phosphatase 73 U/L (39-117); Anion Gap 13 (12-20); Aspartate Amino Transferase 21 U/L (5-37); Bilirubin Total 0.9 mg/dL (0.0-1.0); Blood Urea Nitrogen 29 mg/dL (9-16); Calcium 9.7 mg/dL (8.4-10.2); Carbon Dioxide 30 mmol/L (22-29); Chloride 98 mmol/L (96-108); Creatinine Clr Calc Pharmacy 59.5; Estimated Glomerular Filt Rate 60; Glucose Random 185 mg/dL (60-115); Magnesium 2.8 mg/dL (1.6-2.6); Phosphorus 2.8 mg/dL (2.7-4.5); Potassium 4.1 mmol/L (3.3-5.1); Sodium 137 mmol/L (135-145); Total Protein 6.2 g/dL (6.5-8.0)
[2020-10-01] MEDS: ondansetron HCL 4 MG/2 ML VIAL IVPUSH ×2 (06:47→15:38)
[2020-10-01 07:12] LABS: Glucose, Whole Blood 185 mg/dL (60-115)
[2020-10-01] MEDS: Insulin Lispro 100 UNIT/ML 3 ML VIAL SUBCUT ×2 (07:42→11:19)
[2020-10-01 09:07] LABS: Glucose, Whole Blood 171 mg/dL (60-115)
[2020-10-01] MEDS: Insulin Glargine,Hum.rec.anlog 100 UNIT/ML 10 ML VIAL 40 UNIT SUBCUT (09:07)
--- NOTE | 2020-10-01 09:58 | PC.NURSE ---
Pt drowsy, oriented x3, VSSS, denies pain, complains of orthopnea, RA SaO2 99% RR 18, lungs clear. still complaining of nausea, tums given which helped settle dyspepsia. Pt only ate 2-3 bites of pudding, dry heaves intermittently/mildly. POC glucose 185 this AM 2 units lispro given, recheck 1 hr later 171, 40 units lantus given. Enocuraging pt to eat, sitting high fowlers, rechecked BMP 1000, results pending. Pt is weak, did participate in AM hygiene x1 assist. Bed locked and in lowest position, call sharif in reach.
[2020-10-01 10:55] LABS: Anion Gap 12 (12-20); Blood Urea Nitrogen 28 mg/dL (9-16); Calcium 9.5 mg/dL (8.4-10.2); Carbon Dioxide 29 mmol/L (22-29); Chloride 97 mmol/L (96-108); Creatinine Clr Calc Pharmacy 66.1; Estimated Glomerular Filt Rate > 60; Glucose Random 167 mg/dL (60-115); Potassium 4.2 mmol/L (3.3-5.1); Sodium 134 mmol/L (135-145)
[2020-10-01 11:13] LABS: Glucose, Whole Blood 156 mg/dL (60-115)
--- NOTE | 2020-10-01 11:57 | PM.CCPN ---
Subjective Subjective Date of Service: 10/01/20 Interval History: 55-year-old gentleman with underlying history diabetes mellitus, hypertension, substance abuse admitted 09/30/2019 with diabetic ketoacidosis secondary to not having access to insulin for several days, and also cocaine intoxication. He was started on IV fluid resuscitation and insulin drip and emergency department and admitted to intensive care unit. He was initially titrated off insulin drip on 09/30/2020 in a.m., however his anion gap has opened again and he required being restarted on insulin drip. He has been titrated off insulin drip again overnight 09/30 - 10/01. No events overnight. Critical Care Time (minutes): 0 Physical Exam Vital Signs: Vital Signs: Last Vital Signs Temp 98.3 F 10/01/20 08:00 Pulse 76 10/01/20 11:00 Resp 20 10/01/20 11:00 BP 105/72 10/01/20 11:00 Pulse Ox 96 10/01/20 11:00 Body Mass Index 19.6 Const: General: no acute distress, alert and awake Eyes: Sclerae: sclerae normal EOM: EOMs intact bilaterally Neck: Neck: Yes no lymphadenopathy, Yes trachea midline and Yes supple Resp: Effort & Inspection: normal respiratory effort and no respiratory distress Auscultation: clear to auscultation bilaterally Cardio: Rate: regular rate Rhythm: regular rhythm Heart sounds: no gallops, no murmurs and no rubs GI: Palpation (GI): Soft to palpation and Other GI palpation findings present ( Nontender) Auscultation: normal bowel sounds Extrem: General: Yes no pedal edema, No clubbing and No cyanosis Objective Data Labs CBC & Chem 7: 09/30/20 05:32 10/01/20 09:43 Labs: Laboratory Results - last 24 hr 09/30/20 09/30/20 09/30/20 12:38 14:16 15:03 Sodium 141 Potassium 4.0 Chloride 98 Carbon Dioxide 25 Anion Gap 22 H BUN 46 H Creatinine 1.69 H Estim Creat Clear Calc 44.0 Estimated GFR 42 POC Glucose 272 H 252 H Random Glucose 261 H D Calcium 9.8 Phosphorus Magnesium Total Bilirubin AST ALT Alkaline Phosphatase Total Protein Albumin 09/30/20 09/30/20 09/30/20 16:02 17:09 18:06 Sodium Potassium Chloride Carbon Dioxide Anion Gap BUN Creatinine Estim Creat Clear Calc Estimated GFR POC Glucose 182 H 147 H 151 H Random Glucose Calcium Phosphorus Magnesium Total Bilirubin AST ALT Alkaline Phosphatase Total Protein Albumin 09/30/20 09/30/20 10/01/20 18:15 21:00 05:03 Sodium 140 137 Potassium 4.0 4.1 Chloride 97 98 Carbon Dioxide 29 30 H Anion Gap 18 13 BUN 38 H 29 H Creatinine 1.42 H 1.25 Estim Creat Clear Calc 52.3 59.5 Estimated GFR 52 60 POC Glucose 163 H Random Glucose 156 H D 185 H Calcium 9.8 9.7 Phosphorus 2.8 Magnesium 2.8 H Total Bilirubin 0.9 AST 21 D ALT 12 Alkaline Phosphatase 73 D Total Protein 6.2 L D Albumin 3.8 10/01/20 10/01/20 10/01/20 07:07 09:03 09:43 Sodium 134 L Potassium 4.2 Chloride 97 Carbon Dioxide 29 Anion Gap 12 BUN 28 H Creatinine 1.11 Estim Creat Clear Calc 66.1 Estimated GFR > 60 POC Glucose 185 H 171 H Random Glucose 167 H Calcium 9.5 Phosphorus Magnesium Total Bilirubin AST ALT Alkaline Phosphatase Total Protein Albumin 10/01/20 11:10 Sodium Potassium Chloride Carbon Dioxide Anion Gap BUN Creatinine Estim Creat Clear Calc Estimated GFR POC Glucose 156 H Random Glucose Calcium Phosphorus Magnesium Total Bilirubin AST ALT Alkaline Phosphatase Total Protein Albumin Progress Note: A&P Assessment and plan (1) Substance abuse: Status: Acute Assessment and Plan: Assessment: 55-year-old gentleman with underlying diabetes mellitus and substance abuse admitted with diabetic ketoacidosis also positive for cocaine Plan: Neuro: No acute issues. Cardiac: No acute issues. Pulmonary: No acute issues. Renal: Acute renal failure, likely secondary to underlying diabetic ketoacidosis, improving. Non oliguric. Continue to monitor renal indices and urine output. Endo: Diabetic ketoacidosis, now titrated off insulin drip. Continue with sliding scale insulin and Lantus. GI: No acute issues. ID: No acute issues Heme/Onc: No acute issues. Psych: No acute issues. Miscellaneous: Addiction medicine evaluation requested Prophylaxis: heparin Diet: diabetic (2) TISH (acute kidney injury): Status: Acute (3) Diabetic ketoacidosis associated with diabetes mellitus due to underlying condition: Status: Acute Quality Stroke Does the patient have a stroke diagnosis?: No VTE Prior VTE?: No VTE Risk Level:: Medical - low VTE Device Contraindication: Treatment Not Indicated VTE Drug Contraindication: Treatment Not Indicated
[2020-10-01 16:04] LABS: Glucose, Whole Blood 115 mg/dL (60-115)
[2020-10-01 20:02] LABS: Glucose, Whole Blood 113 mg/dL (60-115)
[2020-10-01] MEDS: Magnesium Hydrox/Alum Hydrox 30 ML ORAL.SUSP 15 ML PO (20:24)
[2020-10-01] MEDS: Famotidine 20 MG TABLET PO (20:24)
[2020-10-02] VITALS (7 sets, daily range): BP systolic 115–153; BP diastolic 75–96; PULSE 68–105; RESP 18–20; TEMP 36.2–36.6; O2SAT 96–99
--- NOTE | 2020-10-02 | ECG_ITS ---
Test Reason : chest pain Blood Pressure : / mmHG Vent. Rate : 072 BPM Atrial Rate : 072 BPM P-R Int : 136 ms QRS Dur : 080 ms QT Int : 396 ms P-R-T Axes : 073 046 049 degrees QTc Int : 433 ms Normal sinus rhythm Normal ECG No previous ECGs available Referred By: Maria Eugenia Akbar Electronically Signed By:Royal Cavazos
[2020-10-02] MEDS: Heparin Sodium,Porcine 5,000 UNIT/ML VIAL 5000 UNIT SUBCUT ×3 (04:34→18:27)
[2020-10-02] MEDS: Calcium Carbonate 750 MG TAB.CHEW PO ×3 (04:49→21:04)
[2020-10-02 06:27] LABS: MANUAL DIFF FLAG NO
[2020-10-02 06:47] LABS: Basophils Percent Auto 0.2 % (0-2); Eosinophils Percent Auto 0.2 % (0-4); Hematocrit 35.3 % (42-52); Imm Gran Abs Auto 0.01 X10*3/uL (0.00-0.03); Imm Gran Pct Auto 0.2 % (0.0-0.4); Lymphocytes Absolute Auto 2.2 X10*3/uL (1.2-4.9); Lymphocytes Percent Auto 45.3 % (20-40); Mean Corpuscular Hemoglobin 30.1 pg (27.0-33.0); Mean Corpuscular Volume 88.5 fL (80-98); Mean Platelet Volume 11.1 fL (9.4-12.4); Monocytes Absolute Auto 0.3 X10*3/uL (0.1-1.2); Monocytes Percent Auto 6.1 % (2-11); Neutrophils Absolute Auto 2.4 X10*3/uL (2.0-8.3); Platelet Count 195 X10*3/uL (160-400); Red Blood Count 3.99 X10*6/uL (4.60-5.80); Red Cell Distribution Width 12.5 % (11.0-16.0)
[2020-10-02 07:07] LABS: Anion Gap 8 (12-20); Blood Urea Nitrogen 20 mg/dL (9-16); Carbon Dioxide 30 mmol/L (22-29); Chloride 99 mmol/L (96-108); Creatinine Clr Calc Pharmacy 71.9; Estimated Glomerular Filt Rate > 60; Glucose Random 208 mg/dL (60-115); Potassium 3.8 mmol/L (3.3-5.1); Sodium 133 mmol/L (135-145)
[2020-10-02] MEDS: Famotidine 20 MG TABLET PO (07:55)
[2020-10-02] MEDS: Insulin Lispro 100 UNIT/ML 3 ML VIAL SUBCUT (07:55)
[2020-10-02] MEDS: Magnesium Hydrox/Alum Hydrox 30 ML ORAL.SUSP 15 ML PO ×2 (07:59→16:28)
[2020-10-02 08:17] LABS: Glucose, Whole Blood 169 mg/dL (60-115)
[2020-10-02 09:06] LABS: Glucose, Whole Blood 174 mg/dL (60-115)
[2020-10-02] MEDS: Insulin Glargine,Hum.rec.anlog 100 UNIT/ML 10 ML VIAL 40 UNIT SUBCUT (09:21)
--- NOTE | 2020-10-02 11:15 | MHC.RECOVSUP ---
Recovery Support note: Patient is a 55 year old Occitan speaking male who presented to [facility] ED due vomiting and stomach pain. This consumer loan underwriter met with patient in - to discuss his cocaine use and recovery supports. Patient reports using a couple days a week to everyday depending on the week and money available. Patient reports he is currently living with his mother who is in an elderly living complex and that he is not allowed to be there Patient reports he has been taking money from his mother to use on cocaine and that she is now facing possible eviction. Patient reports a desire to stop using however expresses concern that he will be unable to. Patient reports he does not use alone and only uses with his friends. Patient reports that he was incarcerated in [place] from [id number]. 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 Patient reports I was smiling back then. 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 Patient was diagnosed with diabetes and reports that things have gone downhill since then. Patient reports an intense fear of needles and this prevents him from managing his diabetes. Patient states he has lost over 50lbs since he was diagnosed and that he is a skeleton and hasn't looked like this since elementary school. Patient also reports he has lost teeth and he feels the decline in his health has been degrading. Patient became tearful while discussing this. Patient reports depression and hopelessness. Patient reports significant anxiety and that he has panic attacks when thinking about his diabetes. This consumer loan underwriter observed patient hyperventilating when bringing up his fear of needles. Patient reports he would not intentionally hurt himself, however states if he wanted to end it he would take a gun into a bank and see what happens. Patient reports he no longer smiles and doesn't do anything that he previously enjoys, like going out to eat or going to the movies. Patient acknowledges that maintaining sobriety from cocaine is not going to fix all his problems however he is still interested in pursuing recovery. Patient is hoping to get into a residential program so that he can abstain from cocaine use in a supportive environment. Patient is agreeable to meeting with a Ballistic Expert to discuss this further. This consumer loan underwriter will refer patient to residential programs tomorrow and will follow up with patient on the status of his referrals. Patient is also agreeable to meeting with the CARE Team to discuss his mental health further. Discussed case with patient's RN, Tisha.
[2020-10-02] MEDS: LORazepam 2 MG/ML VIAL IVPUSH (11:44)
[2020-10-02 11:47] LABS: Glucose, Whole Blood 107 mg/dL (60-115)
--- NOTE | 2020-10-02 12:42 | MHC.CARE ---
1130: Met with pt upon request of Recovery Team. Pt discussed his working in [place] for the past 10 years and Doing really well . 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 Pt's Mother was not doing well and was likely sandra to go to a intermediate so he returned home to care for her in hopes of preventing that from occurring. While back in [place], he was diagnosed with diabetes. Pt also became reacquainted with Old faces, old friends and old neighborhoods . During this time, pt began using crack cocaine again, his health worsened and he grew depressed. Pt was tearful and somber when discussing this. Pt has been neglecting his health due to his crack cocaine use and has deteriorated a great deal. Pt is seeking detox/rehab. Pt believes that This ([place]) is where I will . Pt is agreeable to counseling but stressed that he requires detox and rehab primarily. Pt is not endorsing SI and does not appear to be a risk to his own or others' safety. Pt does not meet the criteria for IPLOC. A referral to [facility] will be submitted.
--- NOTE | 2020-10-02 14:10 | HO.PM.IMPN ---
Subjective Subjective Date of Service: 10/02/20 Interval History: complaining of chest discomfort, localized to epigastric area with heartburn and acidity, denies shortness of breath, requesting for all prescriptions since he left his medications at girlfriend house 4 days ago and has no access to his medications since broke up with GF. General no headache, no dizziness, no fever chills. Respiratory no cough, no sob. Gastrointestinal no nausea no vomiting, epigastric pain Physical Exam Vital Signs: Vital Signs: Last Vital Signs Temp 97.3 F 10/02/20 11:16 Pulse 105 H 10/02/20 11:16 Resp 18 10/02/20 11:16 BP 134/94 H 10/02/20 11:16 Pulse Ox 96 10/02/20 11:16 Body Mass Index 19.6 General no acute distress. Neck supple no JVD. CVS regular rate rhythm, Respiratory lungs clear to auscultation, no respiratory distress, no wheeze, no rhonchi. Gastrointestinal mild epigastric discomfort to palpation,bowel sounds audible, no guarding , no rigidity. Extremities no edema. Neuro nonfocal Skin no rash Objective Data Current Medications Generic Name Dose Route Start Last Admin Trade Name Freq PRN Reason Stop Dose Admin Al Hydroxide/Mg Hydroxide 15 ml 10/01/20 19:28 10/02/20 07:59 Magnesium Hydrox/Alum Hydrox 30 Ml Oral.Susp PO 15 ml Q6H PRN Administration Dyspepsia Calcium Carbonate 750 mg 09/30/20 10:37 10/02/20 11:44 Calcium Carbonate 750 Mg Tab.Chew PO 750 mg Q4H PRN Administration Dyspepsia Famotidine 20 mg 10/01/20 21:00 10/02/20 07:55 Famotidine 20 Mg Tablet PO 20 mg BID NICOLE Administration Heparin Sodium (Porcine) 5,000 unit 09/30/20 11:15 10/02/20 11:36 Heparin Sodium,Porcine 5,000 Unit/Ml Vial SUBCUT 5,000 unit Q8H NICOLE Administration Insulin Glargine 40 unit 10/01/20 09:00 10/02/20 09:21 Insulin Glargine,Hum.Rec.Anlog 100 Unit/Ml 10 Ml Vial SUBCUT 40 unit DAILY NICOLE Administration Insulin Human Lispro 0 unit 09/30/20 21:10 10/02/20 11:33 Insulin Lispro 100 Unit/Ml 3 Ml Vial SUBCUT Not Given QIDACHS [facility] Protocol Lorazepam 2 mg 09/30/20 11:38 10/02/20 11:44 Lorazepam 2 Mg/Ml Vial IVPUSH 2 mg Q4H PRN Administration Anxiety Ondansetron HCl 4 mg 09/29/20 21:22 10/01/20 15:38 Ondansetron Hcl 4 Mg/2 Ml Vial IVPUSH 4 mg Q8H PRN Administration Nausea Pharmacy Consult 1 each 09/29/20 21:11 Consult Rx Perform Med Rec MISCELLANE ONCE PRN Consult order Labs CBC & Chem 7: 10/02/20 06:12 10/02/20 06:12 Labs: Laboratory Results - last 24 hr 10/01/20 10/01/20 10/02/20 15:55 19:54 06:12 WBC 5.0 RBC 3.99 L Hgb 12.0 L Hct 35.3 L MCV 88.5 MCH 30.1 MCHC 34.0 RDW 12.5 Plt Count 195 D MPV 11.1 Immature Gran % (Auto) 0.2 Neut % (Auto) 48.0 Lymph % (Auto) 45.3 H Turner % (Auto) 6.1 Eos % (Auto) 0.2 Baso % (Auto) 0.2 Lymph # (Auto) 2.2 Turner # (Auto) 0.3 Eos # (Auto) 0.0 Baso # (Auto) 0.0 Abs Immat Gran (auto) 0.01 Absolute Neuts (auto) 2.4 Absolute Nucleated RBC 0.000 Nucleated RBC % (auto) 0.0 Sodium Potassium Chloride Carbon Dioxide Anion Gap BUN Creatinine Estim Creat Clear Calc Estimated GFR POC Glucose 115 113 Random Glucose Calcium 10/02/20 10/02/20 10/02/20 06:12 07:46 09:01 WBC RBC Hgb Hct MCV MCH MCHC RDW Plt Count MPV Immature Gran % (Auto) Neut % (Auto) Lymph % (Auto) Turner % (Auto) Eos % (Auto) Baso % (Auto) Lymph # (Auto) Turner # (Auto) Eos # (Auto) Baso # (Auto) Abs Immat Gran (auto) Absolute Neuts (auto) Absolute Nucleated RBC Nucleated RBC % (auto) Sodium 133 L Potassium 3.8 Chloride 99 Carbon Dioxide 30 H Anion Gap 8 L BUN 20 H Creatinine 1.02 Estim Creat Clear Calc 71.9 Estimated GFR > 60 POC Glucose 169 H 174 H Random Glucose 208 H Calcium 9.0 10/02/20 11:15 WBC RBC Hgb Hct MCV MCH MCHC RDW Plt Count MPV Immature Gran % (Auto) Neut % (Auto) Lymph % (Auto) Turner % (Auto) Eos % (Auto) Baso % (Auto) Lymph # (Auto) Turner # (Auto) Eos # (Auto) Baso # (Auto) Abs Immat Gran (auto) Absolute Neuts (auto) Absolute Nucleated RBC Nucleated RBC % (auto) Sodium Potassium Chloride Carbon Dioxide Anion Gap BUN Creatinine Estim Creat Clear Calc Estimated GFR POC Glucose 107 Random Glucose Calcium Quality Stroke Does the patient have a stroke diagnosis?: No VTE Prior VTE?: No VTE Risk Level:: Medical - low VTE Device Contraindication: Treatment Not Indicated VTE Drug Contraindication: Treatment Not Indicated Assessment and Plan (1) Diabetic ketoacidosis associated with diabetes mellitus due to underlying condition: Status: Acute (2) Substance abuse: Status: Acute (3) TISH (acute kidney injury): Status: Acute (4) Hypertension: Status: Acute (5) Diabetes: Status: Acute Assessment and Plan: 55-year-old gentleman with underlying history diabetes mellitus, hypertension, substance abuse admitted 09/30/2019 with diabetic ketoacidosis secondary to not having access to insulin for several days, and also cocaine intoxication. patient was admitted to intensive care unit treated with IV fluids and insulin drip, and and anion gap closed and patient transferred to medical floor. Diabetic ketoacidosis due to noncompliance status post IV insulin drip currently blood sugars in 200 range, will continue Lantus Humalog sliding scale and diabetic diet strongly recommend compliance with insulin recommend to have outpatient follow-up with endocrinology in PCP, will make arrangements for home medications including glucometer and insulin acute kidney injury likely due to diabetes resolved with IV hydration substance abuse patient smokes cocaine requesting for help await addiction team input chest pain likely related to GERD EKG showed no acute ischemic changes, strongly recommend to abstain from cocaine, small frequent meals recommend to sit up with all meals will treat patient with Maalox /PPI hypertension noted to have elevated blood pressure will resume low-dose lisinopril disposition home patient lives at home with mom He was started on IV fluid resuscitation and insulin drip and emergency department and admitted to intensive care unit. He was initially titrated off insulin drip on 09/30/2020 in a.m., however his anion gap has opened again and he required being restarted on insulin drip. He has been titrated off insulin drip again overnight 09/30 - 10/01.
[2020-10-02 16:02] LABS: Glucose, Whole Blood 146 mg/dL (60-115)
--- NOTE | 2020-10-02 16:06 | MHC.CM.PN ---
Addendum entered by Funmilayo Charles 10/02/20 16:22: PATIENT WAS EVALUATED BY SOCIEL WORKER FROM THE CARES TEAM AND REFERRAL TO [facility] COUNSELING WAS MADE FOR COUNSELING, HE WAS ALSO SEEM BY THE RECOVERY [facility] [place] TEAM WORKER AND IS INTERESTED IN [facility] BEING INN A RESIDENTIAL FACILITY AMANDA HIS COCAINE ABUSE , PER NOTE THE RECOVERY TEAM TIM ALMANZA FOLLOW UP ON THIS SATURDAY (PKLEASE SEE THEIR NOTES Original Note: NURSE DIRECTOR OF DIAGNOSTIC IMAGING NOTE ELECTRONIC MEDICAL RECORD REVIEWED PATIENT WAS TRANSFERRED TO MEDICAL SURGICAL FLOOR FROM ICU LATE YESTERDAY AFTERNOON. PER DOCUMENTATION PATIENT WAS ADMITTED 0N 09/29/20 WITH DIABETIC KETO ACIDOSIS, HYPERTENSION AND SUBSTANCE ABUSE. SECONDARY TO NOT HAVING ACCESS TO HIS INSULIN AND OTHER MEDICATIONS FOR SEVERAL DAYS. AND COCAINE INTOXICATION. HE WAS TREATED WITH INSULIN DRIP , LANTUS HU,MALOG SLIDING SCALE, DIABETIC DIETAND IV FLUIDS.PATIENT ADMITTS TO SMOKING COCAINE HE IS ACTIVE INDEPENDENT IN ALL ADLS AND MOBILITY. HE ;VICTOR HUGO WITH HIS MOTHER DISCHARGE PLAN HOME PER PHYSICIAN NOTE arrangements WILL NEED TO BE MADE FOR NEW GLUCOMETER AND INSULIN MEDICATION AND ALL RELATED SUPPLIES WELL HIS OTHER MEDICATIONS RECOMMENDATIONS MADE BY THE RECOVERY SUPPORT TEAM FOR HIS COCAIEN ABUSE TRANSPORT-FAMILY PCP-AT THE [facility]
--- NOTE | 2020-10-02 18:13 | MHC.RECOVSUP ---
? Reason for consult Anatomic Pathology Manager o Current location: [facility] o Identified substance use concern: Cocaine - Support ? Intervention: o Community resources provided o Harm reduction discussion ? Plan: o Follow up tomorrow o Patient to follow up with [facility] after discharge ? Additional information:Met with Patient We talk about Recovery... Patient stated that He wants to go to a long-term program.. Tomorrow Care team will be Following up with Patient.
[2020-10-02 20:22] LABS: Glucose, Whole Blood 127 mg/dL (60-115)
[2020-10-03] MEDS: Magnesium Hydrox/Alum Hydrox 30 ML ORAL.SUSP 15 ML PO ×2 (02:49→09:08)
[2020-10-03] MEDS: Heparin Sodium,Porcine 5,000 UNIT/ML VIAL 5000 UNIT SUBCUT ×2 (02:49→11:56)
[2020-10-03 03:42] VITALS: BP 112/77; PULSE 74; RESP 18; TEMP 36.6; O2SAT 99
[2020-10-03] MEDS: Omeprazole 20 MG CAPSULE.DR PO (05:52)
[2020-10-03 07:45] VITALS: BP 126/82; PULSE 92; RESP 18; TEMP 36; O2SAT 95
[2020-10-03 07:51] LABS: Glucose, Whole Blood 170 mg/dL (60-115)
[2020-10-03] MEDS: Insulin Lispro 100 UNIT/ML 3 ML VIAL SUBCUT ×3 (09:08→13:56)
[2020-10-03] MEDS: lisinopriL 5 MG TABLET PO (09:08)
[2020-10-03] MEDS: Insulin Glargine,Hum.rec.anlog 100 UNIT/ML 10 ML VIAL 40 UNIT SUBCUT (09:09)
[2020-10-03 11:22] VITALS: BP 113/74; PULSE 83; RESP 18; TEMP 36.3; O2SAT 99
[2020-10-03 11:26] LABS: Glucose, Whole Blood 366 mg/dL (60-115)
--- NOTE | 2020-10-03 11:27 | MHC.CM.PN ---
Addendum entered by Cait Leyva, RN 10/03/20 12:30: PER [facility] PT'S MEDS WILL BE READY AT 2PM, TRANSPORT W/YELLOW CAB ARRANGED FOR 2PM PICK-UP, NSG/UNIT AWARE. Original Note: EMR REVIEWED, PT HAS BEEN READY FOR D/C SINCE YESTERDAY DUE TO NEEDING NEW SCRIPTS SENT TO [facility], PER GEOGRAPHY INSTRUCTOR HE SPOKE W/PT'S N PLANT MACHINIST AND THEY WILL WORK ON SA TX PROGRAM, CM WILL ARRANGE TRANSPORT FOR PT TO GO TO [facility] TO OBJECT ORIENTED DEVELOPER MEDS AND TO HIS MOTHERS HOUSE. D/C TO MOTHERS HOUSE SELF-CARE, CM TO ARRANGE TRANSPORT
--- NOTE | 2020-10-03 11:49 | MHC.RECOVSUP ---
Recovery Support note: This teletypewriter operator spoke with Demario riley [facility] regarding patient returning to their program. Patient will need to go through [facility] and be referred from there to return. This teletypewriter operator will refer patient to [facility] CSS programs and patient will continue to follow up with them regarding bed availability after discharge. This teletypewriter operator spoke with Adriana Gardner, patient's special education case manager through [facility]. She is familiar with his case and she is also working on placement for him. This teletypewriter operator met with patient to review his current situation. Encouraged patient to continue working with his special education case manager and to follow through with the plan that she puts in place. This teletypewriter operator also discussed [facility] with patient and explained how the recovery coaches there are able to refer him to programs affiliated with [facility]. This teletypewriter operator pointed out to patient that between [facility] and [facility] there are may different programs and that he should remain optimistic that he will be able to get into a program. This teletypewriter operator discussed with patient that he does not need detox at this time and that [facility] or a lower level of care would make the most sense. Patient acknowledges and is agreeable to the plan in place. Patient awaits follow up from his special education case manager regarding placement options and is aware that he may discharge before she gets back to him. Discussed case with patient's case resolution specialist.
[2020-10-03] MEDS: Calcium Carbonate 750 MG TAB.CHEW PO (12:01)
--- NOTE | 2020-10-03 18:25 | P.DS_ITS ---
DS: Providers Provider Date of Service: 10/03/20 Date of admission: 09/29/20 21:22 Primary care physician: [facility] Consults: 09/30/20 11:38 Addiction Medicine Routine Consulting Provider: Tracy Cho Reason for consultation: Cocaine addiction Has provider been notified: No DS: Diagnosis Discharge Diagnosis (1) Diabetic ketoacidosis associated with diabetes mellitus due to underlying condition: Status: Acute (2) Substance abuse: Status: Acute (3) TISH (acute kidney injury): Status: Acute (4) Hypertension: Status: Acute (5) Diabetes: Status: Acute DS: Medications Discharge Medications Home Medications: Home Medications Medication Instructions Recorded Confirmed sildenafil [Viagra] 1 tab PO DAILY PRN 09/29/20 09/30/20 Previous Rx's Medication Instructions Recorded blood sugar diagnostic [FreeStyle #100 ea 04/25/20 Lite Strips] Jardiance 1 tab PO DAILY #30 tab 10/03/20 Lantus U-100 Insulin 34 unit SUBCUT BEDTIME 30 Days #15 10/03/20 ml acetaminophen 1 tab PO Q6H PRN #60 tab 10/03/20 alcohol swabs [Alcohol Wipes] 1 pad TOPICAL QIDACHS #200 ea 10/03/20 blood sugar diagnostic [FreeStyle #100 ea 10/03/20 Lite Strips] blood-glucose meter [FreeStyle #1 ea 10/03/20 Lite Meter] cholecalciferol (vitamin D3) 25 mcg PO DAILY #30 tab 10/03/20 [Vitamin D3] gabapentin 1 cap PO TID #90 cap 10/03/20 insulin lispro [Humalog KwikPen 10 - 20 unit SUBCUT TID #15 ml 10/03/20 Insulin] insulin syringes (disposable) #500 ea 10/03/20 lancets [FreeStyle Lancets] #100 ea 10/03/20 lisinopril 1 tab PO DAILY #30 tab 10/03/20 metformin 1,000 mg PO BID #60 tab 10/03/20 DS: Summary Hospital Course Hospital Course: history of presenting illness Chief Complaint: Nausea and vomiting This is a 55-year-old male with a past medical history of insulin-dependent diabetes, ETOH and cocaine abuse Who presented to the emergency room with complaints of nausea and vomiting. Patient reports that he has not had access to insulin for the past 2 days, and started not feeling well earlier during the day. He also reported the use of crack cocaine 2 days ago. Denies any other complaints. Laboratory data significant for a WBC 16.8, chloride 88, bicarb 12, Gap 41, BUN 64, creatinine 2.90, glucose 647. Positive ketones in the urine. And positive cocaine on toxicology. In the ED he received 5 units of insulin as well as 1 L IV bolus. And started on IV insulin drip. Admitted into ICU for management of DKA requiring insulin infusion hospital course 55-year-old gentleman with underlying history diabetes mellitus, hypertension, substance abuse admitted 09/30/2019 with diabetic ketoacidosis secondary to not having access to insulin for several days, and also cocaine intoxication. patient was admitted to intensive care unit treated with IV fluids and insulin drip, anion gap closed and patient transferred to medical floor, patient was continued on Lantus and Humalog insulin sliding scale blood sugars remained elevated, strongly recommended to follow diabetic diet and to continue all baseline medication patient follows with endocrinology and PCP since patient is medically stable he is being discharged home, prescription for glucometer, lancets, strips, insulin needles as well as Lantus and Humalog has been sent to [facility] since patient did not have his supplies, acute kidney injury improved with IV hydration was likely due to DKA. In regard to substance abuse patient was seen by care team and has been recommended outpatient [facility] and close [facility] follow-up for rehab. For hypertension he has been continued on lisinopril Time Spent with Patient Time attestation: Total time spent providing and/or coordinating discharge services: Discharge coordination time: Greater than 30 minutes Quality: Stroke Does the patient have a stroke diagnosis?: No Physical Exam Vital Signs: Vital Signs: Last Vital Signs Temp 97.4 F 10/03/20 11:22 Pulse 83 10/03/20 11:22 Resp 18 10/03/20 11:22 BP 113/74 10/03/20 11:22 Pulse Ox 99 10/03/20 11:22 Body Mass Index 19.6 General no acute distress. Neck supple no JVD. CVS regular rate rhythm, Respiratory lungs clear to auscultation, no respiratory distress, no wheeze, no rhonchi. Gastrointestinal nontender,bowel sounds audible, no guarding , no rigidity. Extremities no edema/ long toenails, right big toe subungual hemorrhage stable. Neuro nonfocal Skin no rash DS: Data Data Completed and Pending Labs on day of discharge: Laboratory Results - last 24 hr 10/02/20 10/03/20 10/03/20 20:16 07:44 11:20 POC Glucose 127 H 170 H 366 H* Discharge Plan Discharge Patient Disposition: Home, Self-Care Discharge Diagnosis: DKA acute kidney injury substance abuse hypertension Referrals: [place] [Primary Care Provider] - 1 Week Discharge Medications: New alcohol swabs [Alcohol Wipes] Pads, Medicated 1 pad topical QIDACHS Qty: 200 RF: 0 (DME) lancets [FreeStyle Lancets] 28 gauge misc See Rx Instructions .ROUTE .MEDSUPPLY Qty: 100 RF: 0 (DME) blood-glucose meter [FreeStyle Lite Meter] Kit See Rx Instructions .ROUTE .MEDSUPPLY Qty: 1 RF: 0 (DME) FreeStyle Lite Strips Strip See Rx Instructions .ROUTE .MEDSUPPLY Qty: 100 RF: 0 (DME) insulin syringes (disposable) 1 mL syringe See Rx Instructions .ROUTE .MEDSUPPLY Qty: 500 RF: 0 Continued sildenafil [Viagra] 100 mg tablet 1 tab PO DAILY PRN (Reason: Sexual Activity) RF: 0 metformin 500 mg Tablet 1,000 mg PO BID Qty: 60 RF: 0 Lantus U-100 Insulin 100 unit/mL solution 34 unit SUBCUT BEDTIME 30 Days Qty: 15 RF: 2 gabapentin 400 mg capsule 1 cap PO TID Qty: 90 RF: 0 acetaminophen 500 mg tablet 1 tab PO Q6H PRN (Reason: Pain) Qty: 60 RF: 0 lisinopril 5 mg tablet 1 tab PO DAILY Qty: 30 RF: 0 insulin lispro [Humalog KwikPen Insulin] 100 unit/mL insulin pen 10 - 20 unit SUBCUT TID Qty: 15 RF: 3 cholecalciferol (vitamin D3) [Vitamin D3] 25 mcg (1,000 unit) Tablet 25 mcg PO DAILY Qty: 30 RF: 0 Jardiance 25 mg tablet 1 tab PO DAILY Qty: 30 RF: 0 No Action (DME) FreeStyle Lite Strips Strip See Rx Instructions .ROUTE .MEDSUPPLY Qty: 100 RF: 0 Discharge Orders: Discharge Order (Routine); Ordered 10/03/20 Ordered By: Maria Eugenia Akbar Diet: diabetic diet Activity on Discharge: As tolerated Stand Alone Forms: Patient Portal Discharge page Care Plan Goals: DKA recommend to follow diabetic diet and to continue home medication recommend close follow up with endocrinology and primary care physician in regard to substance abuse patient met with care team and has been recommended outpatient counseling and follow-up with [facility] for drug rehab Health Concerns: recommend close monitoring of blood sugars strict diabetic diet and close outpatient follow-up with [facility] Plan of Treatment: outpatient follow-up at [facility] and [facility] Assessment: as above. Discharge Date/Time: 10/03/20 15:23
== END 2020-10-03 15:23 | disposition home or self-care (01) | DRG 420 ==
LOC: HO.ED 18:39 → HO.ICU 21:35 → HO.IMC 10-01 11:18 → HO.ICU 10-01 11:51 → HO.S3 10-01 15:28
PROVIDERS: Nurse Practitioner Primary Care; Registered Nurse Community Health; Admitting Provider Internal Medicine Pulmonary Disease; Emergency Provider Emergency Medicine; Visit Provider Hospitalist
DX: E11.10 Type 2 diabetes mellitus with ketoacidosis without coma (principal); N17.9 Acute kidney failure, unspecified; Z20.822 Contact with and (suspected) exposure to COVID-19; E11.42 Type 2 diabetes mellitus with diabetic polyneuropathy; Z79.4 Long term (current) use of insulin; Z79.899 Other long term (current) drug therapy; F10.10 Alcohol abuse, uncomplicated; F14.10 Cocaine abuse, uncomplicated; I10 Essential (primary) hypertension; T38.3X6A Underdosing of insulin and oral hypoglycemic [antidiabetic] drugs, initial encounter; Z91.138 Patient's unintentional underdosing of medication regimen for other reason; Y92.9 Unspecified place or not applicable; K21.9 Gastro-esophageal reflux disease without esophagitis
CPT/HCPCS: 36415; 71045; 73630; 80048; 80053; 80307; 81001; 82009; 82040; 82947; 83735; 84100; 84484; 85025; 87635; 93005; 99285; J2060; J2405

== ENCOUNTER 2021-02-10 10:19 | Emergency (ER) | payer MEDICAID, SELFPAY ==
[2021-02-10 10:28] VITALS: BP 132/88; PULSE 86; RESP 18; TEMP 36.4; O2SAT 100; BMI 25.8
--- NOTE | 2021-02-10 10:32 | ECG_ITS ---
Test Reason : COCAINE USAGE Blood Pressure : / mmHG Vent. Rate : 084 BPM Atrial Rate : 084 BPM P-R Int : 148 ms QRS Dur : 074 ms QT Int : 348 ms P-R-T Axes : 049 014 032 degrees QTc Int : 411 ms Normal sinus rhythm Normal ECG No significant changes seen Referred By: Vanessa Stacy Electronically Signed By:ADAIR CRUZ MD
[2021-02-10 10:53] LABS: MANUAL DIFF FLAG NO
[2021-02-10 10:54] LABS: Basophils Percent Auto 0.2 % (0-2); Eosinophils Absolute Auto 0.1 X10*3/uL (0.0-0.4); Eosinophils Percent Auto 2.2 % (0-4); Hematocrit 38.6 % (42.0-52.0); Hemoglobin 13.2 g/dl (14.0-18.0); Imm Gran Abs Auto 0.01 X10*3/uL (0.00-0.03); Imm Gran Pct Auto 0.2 % (0.0-0.4); Lymphocytes Absolute Auto 1.9 X10*3/uL (1.2-4.9); Lymphocytes Percent Auto 34.8 % (20-40); Mean Corpuscular HGB Conc 34.2 g/dl (31.0-36.0); Mean Corpuscular Volume 87.7 fL (80.0-98.0); Mean Platelet Volume 10.7 fL (9.4-12.4); Monocytes Absolute Auto 0.4 X10*3/uL (0.1-1.2); Monocytes Percent Auto 7.8 % (2-11); Neutrophils Percent Auto 54.8 % (45-73); Platelet Count 228 X10*3/uL (160-400); Red Cell Distribution Width 12.9 % (11.0-16.0); White Blood Count 5.5 X10*3/uL (4.8-10.8)
[2021-02-10 11:09] LABS: Alanine Aminotransferase 22 U/L (0-40); Anion Gap 11 (12-20); Aspartate Amino Transferase 14 U/L (5-37); Bilirubin Total 0.4 mg/dL (0.0-1.0); Blood Urea Nitrogen 21 mg/dL (9-16); Calcium 9.3 mg/dL (8.4-10.2); Carbon Dioxide 28 mmol/L (22-29); Chloride 104 mmol/L (96-108); Creatinine Clr Calc Pharmacy 57.1; Estimated Glomerular Filt Rate 50; Glucose Random 109 mg/dL (60-115); Potassium 4.6 mmol/L (3.3-5.1); Sodium 138 mmol/L (135-145); Total Protein 6.8 g/dL (6.5-8.0)
[2021-02-10 11:10] LABS: Alkaline Phosphatase 90 U/L (39-117)
[2021-02-10 11:10] LABS: Amphetamine Screen Urine Not Detected (Not Detect); Barbiturates, Urine Not Detected (Not Detect); Benzodiazepines Screen Urine Not Detected (Not Detect); Cannabinoid Screen Urine Not Detected (Not Detect); Cocaine Screen Urine POSITIVE (Not Detect); Fentanyl, urine Not Detected (Not Detect); Opiate Screen Urine Not Detected (Not Detect); Phencyclidine Screen Urine Not Detected (Not Detect)
[2021-02-10 11:11] LABS: COVID-19 Test Negative (Negative)
--- NOTE | 2021-02-10 11:32 | ED_ITS ---
HPI - Medical Clearance General Chief complaint: Medical Clearance Stated complaint: Medical Clearance Time Seen by Provider: 02/10/21 10:31 Source: patient Mode of arrival: ambulatory Limitations: no limitations History of Present Illness HPI Narrative: 55-year-old male with a past medical history of type 1 diabetes insulin-dependent, alcohol usage and illicit substance usage per for crack cocaine presenting to the ED for medical clearance for Megan Valdes for admission today. He denies any symptoms at this time. He denies any SI/HI/auditory visual hallucinations or thoughts of self-injury. Reports that he last used crack cocaine on Saturday. He also reports that he drinks some alcohol this morning 2 nips. Denies any other drug usage. Denies any other symptoms complaints or concerns at this time. 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) Reason for Medical Clearance: other (Substance abuse) Alleged Intoxication: No Compliant with Home Medications: Yes Traumatic Symptoms: denies traumatic injury Associated Symptoms: denies other symptoms Treatments Prior to Arrival: none Related Information Home Medications Medication Instructions Recorded Confirmed sildenafil 100 mg tablet (Viagra) 1 tab PO DAILY PRN 09/29/20 09/30/20 Previous Rx's Medication Instructions Recorded blood sugar diagnostic (FreeStyle #100 ea 04/25/20 Lite Strips) acetaminophen 500 mg tablet 1 tab PO Q6H PRN #60 tab 10/03/20 alcohol swabs (Alcohol Wipes) 1 pad TOPICAL QIDACHS #200 ea 10/03/20 blood sugar diagnostic (FreeStyle #100 ea 10/03/20 Lite Strips) blood-glucose meter (FreeStyle #1 ea 10/03/20 Lite Meter) cholecalciferol (vitamin D3) 25 25 mcg PO DAILY #30 tab 10/03/20 mcg (1,000 unit) tablet (Vitamin D3) empagliflozin 25 mg tablet 1 tab PO DAILY #30 tab 10/03/20 (Jardiance) gabapentin 400 mg capsule 1 cap PO TID #90 cap 10/03/20 insulin glargine 100 unit/mL 34 unit (0.34 mL) SUBCUT BEDTIME 10/03/20 subcutaneous solution (Lantus 30 Days #15 ml U-100 Insulin) insulin lispro 100 unit/mL 10 - 20 unit (0.1 - 0.2 mL) SUBCUT 10/03/20 subcutaneous pen (Humalog KwikPen TID #15 ml (U-100) Insulin) insulin syringes (disposable) 1 mL #500 ea 10/03/20 lancets 28 gauge (FreeStyle #100 ea 10/03/20 Lancets) lisinopril 5 mg tablet 1 tab PO DAILY #30 tab 10/03/20 metformin 500 mg tablet 1,000 mg PO BID #60 tab 10/03/20 Allergies Allergy/AdvReac Type Severity Reaction Status Date / Time No Known Allergies Allergy Verified 09/28/20 11:46 [No Known Allergies*] Review of Systems Review of Systems: Constitutional : + medical clearance, No Weight loss, No Fever, No Chills, No Night Sweats, No Fatigue, No Malaise ENT/Mouth : No Hearing loss, No Ear Pain, No Nasal Congestion, No Sinus Pain, No Hoarseness, No sore throat, No Rhinorrhea, No Swallowing Difficulty Eyes: No Eye Pain, No Swelling, No Redness, No Foreign Body, No Discharge, No Vision Changes Cardiovascular : No Chest Pain, No SOB, No Dyspnea on Exertion, No Orthopnea, No Edema, No Palpitations Respiratory : No Cough, No Sputum, No Wheezing, No Smoke Exposure, No Dyspnea Gastrointestinal : No Nausea, No Vomiting, No Diarrhea, No Constipation, No abdominal Pain, No Hematochezia, No Melena Genitourinary : no irregular bleeding, No Dysuria, No Urinary Frequency, No Hematuria, No Urinary Incontinence, No Urgency, No Flank Pain, No Urinary Flow Changes, No Hesitancy Musculoskeletal : No joint pain, No Myalgias, No Joint Swelling Skin : No Skin Lesions, No rash Neuro : No Weakness, No Numbness, No Paresthesias, No Loss of Consciousness, No Dizziness, No Headache Psych : No Anxiety/Panic, No Depression, No SI/HI/AH/VH, No Social Issues, Heme/Lymph: No Bruising, No Bleeding,No Lymphadenopathy Endocrine : No Polyuria, No Polydipsia, No Temperature Intolerance Yes all other systems are reviewed and are negative [facility] Past Medical History Attestation statement: The following information was validated with the patient. 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 Blood p ressure normal Heart rate normal. Respiration rate normal. Temperature normal. Oxygen saturation normal. Appearance: Alert. Oriented X3. No acute distress. Head: Normal external exam. Normocephalic. Atraumatic. Eyes: PERRLA. EOMI. Conjunctiva and sclera normal. Eyelids normal. ENT: Pharynx normal. Uvula midline. Moist mucous membranes. Neck: Normal inspection. Neck supple. FROM. CVS: Normal heart rate and rhythm. Respiratory: No respiratory distress. Painless inspiration. Skin: Skin warm and dry. Normal skin color. Normal skin turgor. No rashes/lesions/lacerations noted. Extremities: Extremities exhibit normal range of motion. Extremities nontender . Neuro: Oriented X 3. No motor deficit. No sensory deficit. Reflexes normal. Normal steady gait. No focal neuro deficits noted. Vascular: + radial pulses/+ 2 distal pedal pulses/+2 dorsalis pedis b/l. Normal cap refill. No cyanosis noted to upper extremity nails and lower extremity toes nails. Course Course Course Narrative: 10:30am - 55-year-old male with a past medical history of type 1 diabetes insulin- dependent, alcohol usage and illicit substance usage per for crack cocaine presenting to the ED for medical clearance for [facility] for admission today. He denies any symptoms at this time. He denies any SI/HI/auditory visual hallucinations or thoughts of self-injury. Reports that he last used crack cocaine on Saturday. He also reports that he drinks some alcohol this morning 2 nips. Denies any other drug usage. Denies any other symptoms complaints or concerns at this time. Plan: Labs, EKG, COVID swab and drugs of abuse screen and re-evaluate. Reevaluation(s) Reevaluation #1: - labs reviewed and patient mild anemia with an H&H of 13.2/38.6. - BUN creatinine 21/1.46. This is mildly elevated when compared to prior although patient has had TISH in the past and has been similar to these numbers. - otherwise all other labs are within normal limits. Drugs of abuse screen reviewed patient positive for cocaine. Negative for all other drugs. - patient negative for COVID. - therefore at this time patient will receive 1 L of IV fluids then will re- evaluate the patient's BUN creatinine and if improving will DC home with medical clearance to go to the [facility]. Patient and care team to understand and agreed this plan. Time: 11:48 Reevaluation #2: - repeat labs improved patient's BUN and creatinine now at 20/1.3 therefore patient medically cleared and can be sent to [facility]. Patient and care team understand and agree with this plan. Time: 12:56 [facility] - Medical Clearance Medical Records Attestation: I reviewed the patient's medical records. Lab Data Attestation: I reviewed the patient's lab results. Result diagrams: 02/10/21 10:43 02/10/21 11:58 Labs: Lab Results 02/10/21 02/10/21 02/10/21 Range/Units 10:43 10:43 10:43 WBC 5.5 (4.8-10.8) X10*3/uL RBC 4.40 L (4.60-5.80) X10*6/uL Hgb 13.2 L (14.0-18.0) g/dl Hct 38.6 L (42.0-52.0) % MCV 87.7 (80.0-98.0) fL MCH 30.0 (27.0-33.0) pg MCHC 34.2 (31.0-36.0) g/dl RDW 12.9 (11.0-16.0) % Plt Count 228 (160-400) X10*3/uL MPV 10.7 (9.4-12.4) fL Immature Gran % (Auto) 0.2 (0.0-0.4) % Neut % (Auto) 54.8 (45-73) % Lymph % (Auto) 34.8 (20-40) % Towns % (Auto) 7.8 (2-11) % Eos % (Auto) 2.2 (0-4) % Baso % (Auto) 0.2 (0-2) % Lymph # (Auto) 1.9 (1.2-4.9) X10*3/uL Towns # (Auto) 0.4 (0.1-1.2) X10*3/uL Eos # (Auto) 0.1 (0.0-0.4) X10*3/uL Baso # (Auto) 0.0 (0.0-0.2) X10*3/uL Abs Immat Gran (auto) 0.01 (0.00-0.03) X10*3/uL Absolute Neuts (auto) 3.0 (2.0-8.3) x10*3/uL Absolute Nucleated RBC 0.000 (0.0-0.012) X10*3/uL Nucleated RBC % (auto) 0.0 (0.0-0.2) /100WBC Sodium 138 (135-145) mmol/L Potassium 4.6 D (3.3-5.1) mmol/L Chloride 104 (96-108) mmol/L Carbon Dioxide 28 (22-29) mmol/L Anion Gap 11 L (12-20) BUN 21 H (9-16) mg/dL Creatinine 1.46 H (0.5-1.4) mg/dL Estim Creat Clear Calc 57.1 Estimated GFR 50 Random Glucose 109 D (60-115) mg/dL Calcium 9.3 (8.4-10.2) mg/dL Total Bilirubin 0.4 (0.0-1.0) mg/dL AST 14 (5-37) U/L ALT 22 (0-40) U/L Alkaline Phosphatase 90 D (39-117) U/L Total Protein 6.8 (6.5-8.0) g/dL Albumin 4.0 (3.5-5.0) g/dL Urine Opiates Screen (Not Detect) Urine Fentanyl Screen (Not Detect) Ur Barbiturates Screen (Not Detect) Ur Phencyclidine Scrn (Not Detect) Ur Amphetamines Screen (Not Detect) U Benzodiazepines Scrn (Not Detect) Urine Cocaine Screen (Not Detect) U Marijuana (THC) Screen (Not Detect) COVID-19 (JAYCE) Negative (Negative) COVID-19 Clin Com See Note 02/10/21 02/10/21 Range/Units 10:44 11:58 WBC (4.8-10.8) X10*3/uL RBC (4.60-5.80) X10*6/uL Hgb (14.0-18.0) g/dl Hct (42.0-52.0) % MCV (80.0-98.0) fL MCH (27.0-33.0) pg MCHC (31.0-36.0) g/dl RDW (11.0-16.0) % Plt Count (160-400) X10*3/uL MPV (9.4-12.4) fL Immature Gran % (Auto) (0.0-0.4) % Neut % (Auto) (45-73) % Lymph % (Auto) (20-40) % Towns % (Auto) (2-11) % Eos % (Auto) (0-4) % Baso % (Auto) (0-2) % Lymph # (Auto) (1.2-4.9) X10*3/uL Towns # (Auto) (0.1-1.2) X10*3/uL Eos # (Auto) (0.0-0.4) X10*3/uL Baso # (Auto) (0.0-0.2) X10*3/uL Abs Immat Gran (auto) (0.00-0.03) X10*3/uL Absolute Neuts (auto) (2.0-8.3) x10*3/uL Absolute Nucleated RBC (0.0-0.012) X10*3/uL Nucleated RBC % (auto) (0.0-0.2) /100WBC Sodium 138 (135-145) mmol/L Potassium 4.3 (3.3-5.1) mmol/L Chloride 106 (96-108) mmol/L Carbon Dioxide 25 (22-29) mmol/L Anion Gap 11 L (12-20) BUN 20 H (9-16) mg/dL Creatinine 1.35 (0.5-1.4) mg/dL Estim Creat Clear Calc 61.8 Estimated GFR 55 Random Glucose 94 (60-115) mg/dL Calcium 8.7 D (8.4-10.2) mg/dL Total Bilirubin (0.0-1.0) mg/dL AST (5-37) U/L ALT (0-40) U/L Alkaline Phosphatase (39-117) U/L Total Protein (6.5-8.0) g/dL Albumin (3.5-5.0) g/dL Urine Opiates Screen Not Detected (Not Detect) Urine Fentanyl Screen Not Detected (Not Detect) Ur Barbiturates Screen Not Detected (Not Detect) Ur Phencyclidine Scrn Not Detected (Not Detect) Ur Amphetamines Screen Not Detected (Not Detect) U Benzodiazepines Scrn Not Detected (Not Detect) Urine Cocaine Screen POSITIVE H (Not Detect) U Marijuana (THC) Screen Not Detected (Not Detect) COVID-19 (JAYCE) (Negative) COVID-19 Clin Com ECG Data Attestation: I personally reviewed and interpreted this ECG as follows: ECG interpretation date: 02/10/21 ECG interpretation time: 10:53 Interpretation: Normal sinus rhythm with a ventricular rate of 84 with a normal DC interval normal QRS duration normal QT/QTC interval. No acute ischemic change are noted. Similar compared to prior EKGs on August 2020. Discharge Plan Discharge Clinical Impression: Substance abuse, TISH (acute kidney injury), Acute dehydration Patient Disposition: Home, Self-Care Instructions: Dehydration (ED), Acute Kidney Injury (DC), Polysubstance Abuse (ED) Additional Instructions: You should have repeat blood work in 1 week. Prescriptions: No Action (DME) FreeStyle Lite Strips Strip See Rx Instructions .ROUTE .MEDSUPPLY Qty: 100 RF: 0 sildenafil [Viagra] 100 mg tablet 1 tab PO DAILY PRN (Reason: Sexual Activity) RF: 0 alcohol swabs [Alcohol Wipes] Pads, Medicated 1 pad topical QIDACHS Qty: 200 RF: 0 (DME) lancets [FreeStyle Lancets] 28 gauge misc See Rx Instructions .ROUTE .MEDSUPPLY Qty: 100 RF: 0 (DME) blood-glucose meter [FreeStyle Lite Meter] Kit See Rx Instructions .ROUTE .MEDSUPPLY Qty: 1 RF: 0 (DME) FreeStyle Lite Strips Strip See Rx Instructions .ROUTE .MEDSUPPLY Qty: 100 RF: 0 (DME) insulin syringes (disposable) 1 mL syringe See Rx Instructions .ROUTE .MEDSUPPLY Qty: 500 RF: 0 metformin 500 mg Tablet 1,000 mg PO BID Qty: 60 RF: 0 Lantus U-100 Insulin 100 unit/mL solution 34 unit SUBCUT BEDTIME 30 Days Qty: 15 RF: 2 gabapentin 400 mg capsule 1 cap PO TID Qty: 90 RF: 0 acetaminophen 500 mg tablet 1 tab PO Q6H PRN (Reason: Pain) Qty: 60 RF: 0 lisinopril 5 mg tablet 1 tab PO DAILY Qty: 30 RF: 0 insulin lispro [Humalog KwikPen Insulin] 100 unit/mL insulin pen 10 - 20 unit SUBCUT TID Qty: 15 RF: 3 cholecalciferol (vitamin D3) [Vitamin D3] 25 mcg (1,000 unit) Tablet 25 mcg PO DAILY Qty: 30 RF: 0 Jardiance 25 mg tablet 1 tab PO DAILY Qty: 30 RF: 0 Referrals: [facility] [Primary Care Provider] - 2 days Print Language: Setswana
[2021-02-10] MEDS: 0.9 % Sodium Chloride 1,000 ML 999 ML IVCONT (11:41)
--- NOTE | 2021-02-10 12:13 | MHC.RECOVSUP ---
? Reason for consult:Recovery support o Current location: [facility] o Identified substance use concern:ETOH/CRACK - Seeking ATS (detox) - Support ? Intervention: o ATS bed search started/completed/in process o Harm reduction discussion ? Plan: o Bed search in progress to o Patient to follow up with [facility] after discharge ? Additional information:Patient seeking detox, patient last drank prior to admission. (2 NIps) Patient ran out of money or he would've kept using, plan is for him to go to [facility] after being medically cleared.
[2021-02-10 12:24] LABS: Anion Gap 11 (12-20); Blood Urea Nitrogen 20 mg/dL (9-16); Calcium 8.7 mg/dL (8.4-10.2); Carbon Dioxide 25 mmol/L (22-29); Chloride 106 mmol/L (96-108); Creatinine Clr Calc Pharmacy 61.8; Estimated Glomerular Filt Rate 55; Glucose Random 94 mg/dL (60-115); Potassium 4.3 mmol/L (3.3-5.1); Sodium 138 mmol/L (135-145)
[2021-02-10 13:26] VITALS: BP 140/70; PULSE 78; RESP 18; TEMP 36.9; O2SAT 98
== END 2021-02-10 13:27 | disposition home or self-care (01) ==
PROVIDERS: Physician Assistant Medical; Emergency Provider Emergency Medicine
DX: Z02.2 Encounter for examination for admission to residential institution (principal); F19.10 Other psychoactive substance abuse, uncomplicated; N17.9 Acute kidney failure, unspecified; E86.0 Dehydration; E11.9 Type 2 diabetes mellitus without complications; Z20.822 Contact with and (suspected) exposure to COVID-19
CPT/HCPCS: 36415; 80048; 80053; 80307; 85025; 87635; 93005; 96360; 99284